=== PATIENT | male | born 1930 | race Caucasian/White ===

== ENCOUNTER → 2017-09-13 | Outpatient (CLI) | payer OTHER ==
[~2017-09-13] MED LIST: CSPOPS; GLC500 PO; INSDGIPEN SC; LATA0.009; LISI20TA3 PO; MCR5 PO; OXYC-57 PO; SIMV20TA2 PO
== END | disposition home or self-care (01) ==
LOC: C.PATHSPEC 17:14
PROVIDERS: ATTEND Urology
DX: C67.9 Malignant neoplasm of bladder, unspecified (principal)

== ENCOUNTER → 2018-02-06 | Outpatient (CLI) | payer OTHER | END | disposition home or self-care (01) | LOC: C.RDSM 09:05 | PROVIDERS: ATTEND Physical Medicine & Rehabilitation Sports Medicine | DX: M25.532 Pain in left wrist (principal) ==

== ENCOUNTER 2020-10-24 17:03 | Inpatient (IN) ==
--- NOTE | 2020-10-24 17:47 | Emergency Department Note ---
History of Present Illness General Chief complaint: Shortness of Breath/Dyspnea Stated complaint: sob, headache, back pain, no taste, nausea Time Seen by Provider: 10/24/20 17:31 Source: patient History of Present Illness Provider complaint: Body aches Onset (ago): week(s) Location: chest, back, upper extremity, lower extremity, left and right Severity: moderate Pain Consistency: + constant Quality: + aching Relieved By: + none Associated symptoms: + cough, + fever/chills, + headaches, + malaise and + shortness of breath; no chest pain and no nausea/vomiting This is an 89-year-old who presents with flulike symptoms and shortness of breath for the past week. The patient states that his brother was diagnosed with COVID-19 and he eats breakfast with him regularly. Patient developed shortness of breath with diffuse body aches about a week ago. He has had a cough as well with capellan sputum production. He denies any chest discomfort. He does have a headache and states he cannot taste anything and has lost his appetite. He has no abdominal pain, vomiting or diarrhea or urinary symptoms. He states he did not take his insulin today. He denies fever but states he has chills. Home Medications Medication Instructions Recorded Confirmed Type dorzolamide-timolol 1 drp OPB BID 08/27/18 10/24/20 History gabapentin 300 mg PO TID 08/27/18 10/24/20 History insulin glargine [Lantus U-100 40 sc SUBCUT QAM 08/27/18 10/24/20 History Insulin] latanoprost 1 drp OPB QPM 08/27/18 10/24/20 History lisinopril 20 mg PO DAILY 08/27/18 10/24/20 History metformin 1,000 mg PO BID 08/27/18 10/24/20 History cholecalciferol (vitamin D3) 25 1,000 units PO DAILY 09/08/19 10/24/20 History mcg (1,000 unit) tablet cyanocobalamin (vitamin B-12) 1,000 mcg PO DAILY 09/08/19 10/24/20 History 1,000 mcg tablet nystatin 100,000 unit/gram topical 1 applic TOP BID PRN gm 08/30/20 10/24/20 History powder insulin glargine [Lantus U-100 25 unit SUBCUT QPM 10/24/20 10/24/20 History Insulin] simvastatin 20 mg PO QAM 10/24/20 10/24/20 History Allergies Allergy/AdvReac Type Severity Reaction Status Date / Time omeprazole AdvReac Mild Unknown Verified 10/24/20 18:18 Past Med/Surg History Medical History Aneurysm artery, iliac Bladder cancer (~1980) Diabetes Diabetic neuropathy Dyslipidemia HTN (hypertension) Obesity (BMI 30-39.9) Osteoarthritis Vitamin B12 deficiency Surgical History History of bladder surgery History of cataract surgery History of cholecystectomy History of colonoscopy History of dental surgery History of knee surgery Family History Father Myocardial infarction Grandfather (Paternal) Diabetes Mother Hypertension Stroke Daughter Breast cancer Denies family history of Ovarian cancer Prostate cancer Lung cancer Social History Smoking Status: Former smoker Tobacco Type: Cigarettes Age Started Using Tobacco: 21; Age Quit Using Tobacco: 69; packs per day: 3; Years Smoked: 48; Second Hand Exposure: No; Hx Alcohol Use: No Hx Substance Use: No Preferred Language: Romansh Communication Ability: Effective Visual Impairment: Limited Hearing Ability: Normal Inside Upholsterer Required: No marital status: Single Current Living Situation: Alone current occupational status: retired Feels Safe at Home: Yes Childhood Exposure to Second-Hand Smoke: Yes caffeine: Yes Dental Care, Regularly: No Physical Activity Frequency: 3-4 Times per Week Physical Activity Frequency Comment: walk/cutting wood Seatbelt Use: always Sunscreen Use: Yes Do you think of yourself as: straight/heterosexual Review of Systems See HPI for pertinent positives & negatives. and A total of 10 systems reviewed and were otherwise negative Physical Exam Vital Signs Vital Signs - 24 hr 10/24/20 17:04 10/24/20 17:10 10/24/20 18:46 Temperature 36.5 C Temperature Source Temporal Artery Scan Pulse Rate 100 H Pulse Rate [Right Finger] Respiratory Rate 18 Respiratory Effort / Characteristics Spontaneous Blood Pressure 136/74 Blood Pressure [Right Arm] Blood Pressure Mean 94 Blood Pressure Mean [Right Arm] Pulse Oximetry 96 95 94 Oxygen Delivery Method Room Air Room Air Room Air Sepsis Recent Fever Within 48 Hours No Sepsis New/Unexplained Change in Mental Status N/A Sepsis Action Taken by Nursing No Action Required 10/24/20 19:08 10/24/20 19:15 Temperature Temperature Source Pulse Rate Pulse Rate [Right Finger] 86 88 Respiratory Rate 16 18 Respiratory Effort / Characteristics Blood Pressure Blood Pressure [Right Arm] 139/72 Blood Pressure Mean Blood Pressure Mean [Right Arm] 94 Pulse Oximetry 96 94 Oxygen Delivery Method Room Air Room Air Sepsis Recent Fever Within 48 Hours Sepsis New/Unexplained Change in Mental Status Sepsis Action Taken by Nursing Constitutional: Vital signs reviewed. Eyes: Pupils are equal round reactive to light. Conjunctiva are noninjected. ENT: Pharynx is clear without erythema or exudate. Mucous membranes are dry. Neck supple without meningeal signs. Respiratory: Clear to auscultation bilaterally. Breath sounds are equal bilaterally. Cardiovascular: Regular rate and rhythm. No rubs or gallops. GI: Soft, nondistended and nontender. Bowel sounds are present. Musculoskeletal: No peripheral edema. No lower extremity tenderness. Integumentary: No cyanosis. or jaundice. Neurological: The patient is awake and alert. No focal deficits. Psychiatric: Normal affect. Not anxious appearing. Course Administered Medications Discontinued Medications Acetaminophen (Acetaminophen 325 Mg Tab) 650 mg PO NOW STA Stop: 10/24/20 19:21 Last Admin: 10/24/20 19:31 Dose: 650 mg Documented by: [id number] Medical Decision Making Differential Diagnosis COVID-19, pneumonia, influenza, bronchitis, dehydration, metabolic derangement Medical Records Attestation: I reviewed the patient's medical records. I did perform a limited focused review of portions of the patient's old chart on the electronic medical record. The patient has had no recent pertinent visits to this hospital. Home Medications Current Medication List: was personally reviewed by me Laboratory Data Attestation: I reviewed the patient's lab results. Result diagrams: 10/24/20 18:28 10/24/20 18:28 Lab Results 10/24/20 10/24/20 10/24/20 Range/Units 18:28 18:28 18:28 WBC 4.44 L (4.8-10.8) K/uL RBC 5.24 (4.7-6.1) M/uL Hgb 15.9 (14.0-18.0) g/dL Hct 46.5 (42-52) % MCV 88.7 (80-100) fL MCH 30.3 (25-34) pg MCHC 34.2 (32-36) g/dL RDW Std Deviation 46.3 (36.4-46.3) fL RDW Coeff of Mya 14.1 (11.5-14.5) % Plt Count 144 (130-400) K/uL MPV 10.2 (7.4-10.4) fL Immature Gran % (Auto) 0.2 % Neut % (Auto) 50.9 % Lymph % (Auto) 35.4 % [place] % (Auto) 12.8 % Eos % (Auto) 0.5 % Baso % (Auto) 0.2 % Neut # (Auto) 2.26 (1.4-6.5) K/uL Lymph # (Auto) 1.57 (1.2-3.4) K/uL [place] # (Auto) 0.57 (0.11-0.59) K/uL Eos # (Auto) 0.02 (0-0.5) K/uL Baso # (Auto) 0.01 (0-0.2) K/uL Immature Gran # (Auto) 0.01 (0.00-0.02) K/uL PT 11.4 (9.0-12.0) Seconds INR 1.1 (0.9-1.1) APTT 31.6 H (21.0-31.0) Seconds PTT Ratio 1.1 Sodium 133 L (136-145) mmol/L Potassium 4.4 (3.5-5.1) mmol/L Chloride 99 (98-107) mmol/L Carbon Dioxide 28 (21-32) mmol/L Anion Gap 6.0 (3-11) BUN 19 H (7-18) mg/dl Creatinine 1.44 H (0.6-1.4) mg/dl Est Cr Clr Drug Dosing 42.4 ml/min Est GFR ( Amer) 49.9 Est GFR (Non-Af Amer) 43.0 BUN/Creatinine Ratio 13.0 (10-20) Glucose 204 H (70-99) mg/dl Calcium 8.5 (8.5-10.1) mg/dl Total Bilirubin 0.6 (0.2-1) mg/dl AST 36 (15-37) U/L ALT 33 (12-78) U/L Alkaline Phosphatase 54 (45-117) U/L Troponin I < 0.015 (0-0.045) ng/ml Total Protein 7.9 (6.4-8.2) gm/dl Albumin 3.5 (3.4-5.0) gm/dl Globulin 4.4 H (2.5-4.0) gm/dl Albumin/Globulin Ratio 0.8 L (0.9-2) COVID-19 Eval Order Influ A Molecular Assay (Negative) Influ B Molecular Assay (Negative) SARS-CoV-2, RNA, NAAT (NEGATIVE) 10/24/20 10/24/20 10/24/20 Range/Units 18:28 19:27 19:27 WBC (4.8-10.8) K/uL RBC (4.7-6.1) M/uL Hgb (14.0-18.0) g/dL Hct (42-52) % MCV (80-100) fL MCH (25-34) pg MCHC (32-36) g/dL RDW Std Deviation (36.4-46.3) fL RDW Coeff of Mya (11.5-14.5) % Plt Count (130-400) K/uL MPV (7.4-10.4) fL Immature Gran % (Auto) % Neut % (Auto) % Lymph % (Auto) % [place] % (Auto) % Eos % (Auto) % Baso % (Auto) % Neut # (Auto) (1.4-6.5) K/uL Lymph # (Auto) (1.2-3.4) K/uL [place] # (Auto) (0.11-0.59) K/uL Eos # (Auto) (0-0.5) K/uL Baso # (Auto) (0-0.2) K/uL Immature Gran # (Auto) (0.00-0.02) K/uL PT (9.0-12.0) Seconds INR (0.9-1.1) APTT (21.0-31.0) Seconds PTT Ratio Sodium (136-145) mmol/L Potassium (3.5-5.1) mmol/L Chloride (98-107) mmol/L Carbon Dioxide (21-32) mmol/L Anion Gap (3-11) BUN (7-18) mg/dl Creatinine (0.6-1.4) mg/dl Est Cr Clr Drug Dosing ml/min Est GFR ( Amer) Est GFR (Non-Af Amer) BUN/Creatinine Ratio (10-20) Glucose (70-99) mg/dl Calcium (8.5-10.1) mg/dl Total Bilirubin (0.2-1) mg/dl AST (15-37) U/L ALT (12-78) U/L Alkaline Phosphatase (45-117) U/L Troponin I (0-0.045) ng/ml Total Protein (6.4-8.2) gm/dl Albumin (3.4-5.0) gm/dl Globulin (2.5-4.0) gm/dl Albumin/Globulin Ratio (0.9-2) COVID-19 Eval Order Covid19 IDNow [facility] Influ A Molecular Assay Negative (Negative) Influ B Molecular Assay Negative (Negative) SARS-CoV-2, RNA, NAAT POSITIVE A* (NEGATIVE) Imaging Data Radiologist's Impression: XR chest 1V portable CLINICAL HISTORY: Dyspnea COMPARISON STUDY: 04/03/2012 FINDINGS: The heart is the upper limits of normal in size. There are increased markings at both lung bases, pneumonia versus atelectasis. Correlation with Covid 19 testing is recommended. There is a small left pleural effusion. There is no failure.[ IMPRESSION: 1. Subtle bibasilar opacities. Multifocal pneumonia versus atelectasis. Clinical and radiographic follow-up is recommended. 2. Small left pleural effusion ACT 112: Negative or not required by law. Electronically signed by: Merrick Fonseca M.D. 10/24/2020 6:46 PM Dictated: 10/24/201842 Transcribed: 10/24/201842 ECG Data Attestation: I personally reviewed and interpreted this ECG as follows: Indication: + SOB/dyspnea Rate (beats per minute): 84 Rhythm: + normal sinus ECG Intervals/blocks: + Normal QRS ECG ST segments: no ST elevation ECG Findings: no PVCs MDM Narrative I did evaluate the patient as noted above. The patient had a recent exposure to COVID-19. He is presenting with symptoms concerning for COVID-19 including loss of taste, cough, shortness of breath, myalgias and chills. IV access was established. I did place an order for continuous cardiac monitoring. The magali tor showed normal sinus rhythm at a rate of 98 bpm. I did order and personally review the patient's 12-lead EKG as described above. He has no acute ischemic changes. I did order and personally reviewed the images of the patient's chest x-ray as described above. Chest x-ray is concerning for bilateral pneumonia consistent with COVID-19. I did order and review the patient's blood work as noted in the electronic medical record. He has mild leukopenia. He is not anemic. Creatinine is slightly elevated at 1.4. He is hyperglycemic and has a sodium of 133. His COVID-19 test came back positive. I did discuss the test results with the patient.We did try to ambulate him in the emergency department. Walking a short distance in the room itself made him extremely dyspneic.He was also very weak.He does live by himself. He does have multiple comorbidities including diabetes, Hypertension, advanced age and obesity.He will be hospitalized for further care and evaluation. I did discuss case with the hospitalist and geriatric case manager. Impression & Plan Pneumonia due to 2019 novel coronavirus, Acute hyperglycemia Discharge Plan Visit Data Chief Complaint: Shortness of Breath/Dyspnea Stated Complaint: sob, headache, back pain, no taste, nausea ED Provider: Micah Duncan Discharge Problem: Pneumonia due to 2019 novel coronavirus, Acute hyperglycemia Patient Disposition: Being Evaluated by Hospitalist Forms Stand Alone Forms: My [facility] Prescriptions Prescriptions: No Action cyanocobalamin (vitamin B-12) 1,000 mcg tablet 1,000 mcg PO DAILY RF: 0 cholecalciferol (vitamin D3) 25 mcg (1,000 unit) tablet 1,000 units PO DAILY RF: 0 nystatin 100,000 unit/gram powder 1 applic TOP BID PRN (Reason: Skin Irritation) RF: 0 dorzolamide-timolol 22.3-6.8 mg/mL drops 1 drp OPB BID RF: 0 latanoprost 0.005 % drops 1 drp OPB QPM RF: 0 Lantus U-100 Insulin 100 unit/mL solution 40 sc subcut QAM RF: 0 lisinopril 20 mg tablet 20 mg PO DAILY RF: 0 metformin 1,000 mg tablet 1,000 mg PO BID RF: 0 gabapentin 300 mg Capsule 300 mg PO TID RF: 0 Lantus U-100 Insulin 100 unit/mL solution 25 unit SUBCUT QPM RF: 0 simvastatin 40 mg tablet 20 mg PO QAM RF: 0 Referrals Referrals: Jr Curry DO [Primary Care Provider] -
[2020-10-24 18:41] LABS: Basophils # (auto) 0.01 K/uL (0-0.2); Basophils % (auto) 0.2 %; Eosinophils # (auto) 0.02 K/uL (0-0.5); Eosinophils % (auto) 0.5 %; Hematocrit (blood only) 46.5 % (42-52); Hemoglobin 15.9 g/dL (14.0-18.0); Immature Granulocytes # (auto) 0.01 K/uL (0.00-0.02); Immature Granulocytes % (auto) 0.2 %; Lymphocytes # (auto) 1.57 K/uL (1.2-3.4); Lymphocytes % (auto) 35.4 %; Mean Corpuscular Hemoglobin 30.3 pg (25-34); Mean Corpuscular Hgb Conc 34.2 g/dL (32-36); Mean Corpuscular Volume 88.7 fL (80-100); Mean Platelet Volume 10.2 fL (7.4-10.4); Monocytes # (auto) 0.57 K/uL (0.11-0.59); Monocytes % (auto) 12.8 %; Neutrophils # (auto) 2.26 K/uL (1.4-6.5); Neutrophils % (auto) 50.9 %; Platelet Count 144 K/uL (130-400); RDW Coefficient of Variation 14.1 % (11.5-14.5); RDW Standard Deviation 46.3 fL (36.4-46.3); Red Blood Count 5.24 M/uL (4.7-6.1); White Blood Count 4.44 K/uL (4.8-10.8)
--- NOTE | 2020-10-24 18:47 | XRay Report ---
XR chest 1V portable CLINICAL HISTORY: Dyspnea COMPARISON STUDY: 04/03/2012 FINDINGS: The heart is the upper limits of normal in size. There are increased markings at both lung bases, pneumonia versus atelectasis. Correlation with Covid 19 testing is recommended. There is a sma ll left pleural effusion. There is no failure.[ IMPRESSION: 1. Subtle bibasilar opacities. Multifocal pneumonia versus atelectasis. Clinical and radiographic fol low-up is recommended. 2. Small left pleural effusion ACT 112: Negative or not required by law. Electronically signed by: Merrick Fonseca M.D. 10/24/2020 6:46 PM
[2020-10-24 18:52] LABS: INR 1.1 (0.9-1.1); Partial Thromboplastin Ratio 1.1; Partial Thromboplastin Time 31.6 Seconds (21.0-31.0); Prothrombin Time 11.4 Seconds (9.0-12.0)
[2020-10-24 19:03] LABS: Alanine Aminotransferase 33 U/L (12-78); Albumin Level 3.5 gm/dl (3.4-5.0); Aspartate Aminotransferase 36 U/L (15-37); Blood Urea Nitrogen 19 mg/dl (7-18); Calcium 8.5 mg/dl (8.5-10.1); Carbon Dioxide 28 mmol/L (21-32); Chloride 99 mmol/L (98-107); Creatinine Clr Calc Pharmacy 42.4 ml/min; Est GFR (African American) 49.9; Glucose 204 mg/dl (70-99); Potassium 4.4 mmol/L (3.5-5.1); Sodium 133 mmol/L (136-145)
[2020-10-24 19:08] LABS: Albumin Globulin Ratio 0.8 (0.9-2); Alkaline Phosphatase 54 U/L (45-117); Bilirubin,Total 0.6 mg/dl (0.2-1); Globulin 4.4 gm/dl (2.5-4.0); Total Protein 7.9 gm/dl (6.4-8.2); Troponin I < 0.015 ng/ml (0-0.045)
[2020-10-24] MEDS ORDERED: ACETAMINOPHEN 325 MG TAB PO STA (19:20)
[2020-10-24 19:31] LABS: Influenza A virus by PCR Negative (Negative); Influenza B virus by PCR Negative (Negative)
--- NOTE | 2020-10-24 20:55 | History & Physical Report ---
Date of Service October 24, 2020 Assessment & Plan (1) Pneumonia due to 2019 novel coronavirus: Pneumonia due to COVID-19 virus/hypoxia/acute viral syndrome- Patient has hypoxia and the generalized myalgias and arthralgias that go along with a viral syndrome. Dexamethasone 6 mg IV every morning Remdesivir IV per protocol Zinc sulfate 200 mg p.o. every morning Acetaminophen 650 mg p.o. every 6 hours as needed pain or temperature Nasal cannula oxygen, titrate to keep pulse ox 94 to 95% Ventolin HFA 2 puffs 4 times daily, and every 2 hours as needed Present on Admission?: Yes (2) Hypoxia: See above Present on Admission?: Yes (3) Acute viral syndrome: The generalized myalgias and arthralgias that go along with a viral syndrome, are as bothersome to the patient just his breathing Present on Admission?: Yes (4) Diabetes: Continue current dosing of Lantus insulin at 40 units subcu every morning and 25 units subcu every afternoon. Place on Accu-Cheks before meals and at bedtime with NovoLog coverage per scale. Be prepared to adjust dosing due to possible worsening while on dexamethasone Hold metformin Present on Admission?: Yes (5) Diabetic neuropathy: Continue gabapentin Present on Admission?: Yes (6) Dyslipidemia: Continue simvastatin. Present on Admission?: Yes (7) HTN (hypertension): Hold lisinopril Present on Admission?: Yes (8) Acute kidney injury: Creatinine 1.44 upon admission, with baseline 1.2. Place on NSS at 100 mils per hour x1 L Repeat laboratories in a.m. Present on Admission?: Yes History of Present Illness Chief Complaint: The patient presents to the emergency department with generalized myalgias and arthralgias involving upper and lower extremities, and chest and back. He also reports a cough, headaches, shortness of breath and dyspnea on exertion with minimal activity, and decreased taste affecting his ability to eat. He was exposed to his brother who had COVID-19 infection Primary Care Provider: Jr Curry DO The patient is an 89-year-old male with a past medical history including diabetes mellitus, diabetic peripheral neuropathy, hypertension, dyslipidemia, obesity, glaucoma, vitamin B12 deficiency and osteoarthritis. He presents with the symptoms as noted above, after exposure to his 84-year-old brother who was diagnosed with COVID-19. Work-up in the emergency department included a positive COVID-19 test, a chest x-ray showing multifocal pneumonia, creatinine 1.44, glucose 204 and vital signs included pulse ox of 92% on room air. Allergies Allergy/AdvReac Type Severity Reaction Status Date / Time omeprazole AdvReac Mild Unknown Verified 10/24/20 18:18 Home Medications Medication Instructions Recorded Confirmed Type dorzolamide-timolol 1 drp OPB BID 08/27/18 10/24/20 History gabapentin 300 mg PO TID 08/27/18 10/24/20 History insulin glargine [Lantus U-100 40 sc SUBCUT QAM 08/27/18 10/24/20 History Insulin] latanoprost 1 drp OPB QPM 08/27/18 10/24/20 History lisinopril 20 mg PO DAILY 08/27/18 10/24/20 History metformin 1,000 mg PO BID 08/27/18 10/24/20 History cholecalciferol (vitamin D3) 25 1,000 units PO DAILY 09/08/19 10/24/20 History mcg (1,000 unit) tablet cyanocobalamin (vitamin B-12) 1,000 mcg PO DAILY 09/08/19 10/24/20 History 1,000 mcg tablet nystatin 100,000 unit/gram topical 1 applic TOP BID PRN gm 08/30/20 10/24/20 History powder insulin glargine [Lantus U-100 25 unit SUBCUT QPM 10/24/20 10/24/20 History Insulin] simvastatin 20 mg PO QAM 10/24/20 10/24/20 History Past Med/Surg History Medical History Aneurysm artery, iliac Bladder cancer (~1980) Diabetes Diabetic neuropathy Dyslipidemia HTN (hypertension) Obesity (BMI 30-39.9) Osteoarthritis Vitamin B12 deficiency Surgical History History of bladder surgery History of cataract surgery History of cholecystectomy History of colonoscopy History of dental surgery History of knee surgery Family History Father Myocardial infarction Grandfather (Paternal) Diabetes Mother Hypertension Stroke Daughter Breast cancer Denies family history of Ovarian cancer Prostate cancer Lung cancer Social History Smoking Status: Former smoker Tobacco Type: Cigarettes Age Started Using Tobacco: 21; Age Quit Using Tobacco: 69; packs per day: 3; Years Smoked: 46; Second Hand Exposure: No; Hx Alcohol Use: No Hx Substance Use: No Preferred Language: Portuguese Communication Ability: Effective Visual Impairment: Limited Hearing Ability: Normal Ladle Cleaner Required: No marital status: Single Current Living Situation: Alone current occupational status: retired Feels Safe at Home: Yes Childhood Exposure to Second-Hand Smoke: Yes caffeine: Yes Dental Care, Regularly: No Physical Activity Frequency: 3-4 Times per Week Physical Activity Frequency Comment: walk/cutting wood Seatbelt Use: always Sunscreen Use: Yes Do you think of yourself as: straight/heterosexual Review of Systems Review of Systems: The patient denies palpitations, lower extremity swelling, sore throat, fevers, chills, sweats, nausea, vomiting, diarrhea , constipation, abdominal pain, pelvic pain, blood in urine or stool, dysuria, urinary frequency or urgency, memory loss, loss of consciousness, rash, abnormal bruising or bleeding, imbalance, focal weakness, numbness or tingling in arms or legs, neck pain, or night sweats. The review of systems is otherwise negative other than for that already noted above, and at least 10 systems have been reviewed. Physical Exam Physical Exam: The patient is awake, alert and oriented 3, well developed and well nourished, normocephalic and atraumatic, lying in bed and in no acute distress. HEENT--PERRL, EOMI, mucous membranes and oropharynx dry. Neck--supple. No JVD. No bruits. Thyroid normal, trachea midline, no adenopathy. Heart--normal S1 and S2. No murmurs, rubs or gallops. Lungs--coarse breath sounds bilaterally. No respiratory distress, no accessory muscle use. Abdomen--normal bowel sounds and soft. Nontender. Nondistended. Obese. Extremities--no cyanosis or clubbing. No edema. Dermatologic--normal skin turgor, normal color, no abnormal lymph nodes, no rash. Neurologic--cranial nerves II through XII grossly intact. Rheumatologic--normal range of motion. Psychiatric--normal affect. Results & Data Results & Data ([facility]) Vital Signs (Past 12 Hours) Vital Signs Temp Pulse Pulse Resp BP BP Pulse Ox 10/24/20 19:15 88 18 94 10/24/20 19:08 86 16 139/72 96 10/24/20 18:46 94 10/24/20 17:10 97.7 F 100 H 18 136/74 95 10/24/20 17:04 96 Laboratory Results Laboratory Results WBC 4.44 K/uL (4.8-10.8) L 10/24/20 18:28 RBC 5.24 M/uL (4.7-6.1) 10/24/20 18:28 Hgb 15.9 g/dL (14.0-18.0) 10/24/20 18: Hct 46.5 % (42-52) 10/24/20 18: MCV 88.7 fL (80-100) 10/24/20 18: MCH 30.3 pg (25-34) 10/24/20 18: MCHC 34.2 g/dL (32-36) 10/24/20 18:28 RDW Std Deviation 46.3 fL (36.4-46.3) 10/24/20 18: RDW Coeff of Mya 14.1 % (11.5-14.5) 10/24/20 18: Plt Count 144 K/uL (130-400) 10/24/20 18:28 MPV 10.2 fL (7.4-10.4) 10/24/20 18: Immature Gran % (Auto) 0.2 % 10/24/20 18: Neut % (Auto) 50.9 % 10/24/20 18:28 Lymph % (Auto) 35.4 % 10/24/20 18:28 [place] % (Auto) 12.8 % 10/24/20 18:28 Eos % (Auto) 0.5 % 10/24/20 18: Baso % (Auto) 0.2 % 10/24/20 18:28 Neut # (Auto) 2.26 K/uL (1.4-6.5) 10/24/20 18:28 Lymph # (Auto) 1.57 K/uL (1.2-3.4) 10/24/20 18:28 [place] # (Auto) 0.57 K/uL (0.11-0.59) 10/24/20 18:28 Eos # (Auto) 0.02 K/uL (0-0.5) 10/24/20 18:28 Baso # (Auto) 0.01 K/uL (0-0.2) 10/24/20 18:28 Immature Gran # (Auto) 0.01 K/uL (0.00-0.02) 10/24/20 18:28 PT 11.4 Seconds (9.0-12.0) 10/24/20 18: INR 1.1 (0.9-1.1) 10/24/20 18: APTT 31.6 Seconds (21.0-31.0) H 10/24/20 18: PTT Ratio 1.1 10/24/20 18:28 Sodium 133 mmol/L (136-145) L 10/24/20 18: Potassium 4.4 mmol/L (3.5-5.1) 10/24/20 18: Chloride 99 mmol/L (98-107) 10/24/20 18: Carbon Dioxide 28 mmol/L (21-32) 10/24/20 18:28 Anion Gap 6.0 (3-11) 10/24/20 18:28 BUN 19 mg/dl (7-18) H 10/24/20 18: Creatinine 1.44 mg/dl (0.6-1.4) H 10/24/20 18:28 Est Cr Clr Drug Dosing 42.4 ml/min 10/24/20 18:28 Est GFR ( Amer) 49.9 10/24/20 18:28 Est GFR (Non-Af Amer) 43.0 10/24/20 18:28 BUN/Creatinine Ratio 13.0 (10-20) 10/24/20 18:28 Glucose 204 mg/dl (70-99) H 10/24/20 18:28 POC Glucose 251 mg/dl (70-99) H 10/25/20 02:36 Calcium 8.5 mg/dl (8.5-10.1) 10/24/20 18:28 Total Bilirubin 0.6 mg/dl (0.2-1) 10/24/20 18:28 AST 36 U/L (15-37) 10/24/20 18:28 ALT 33 U/L (12-78) 10/24/20 18:28 Alkaline Phosphatase 54 U/L (45-117) 10/24/20 18:28 Troponin I < 0.015 ng/ml (0-0.045) 10/24/20 18:28 Total Protein 7.9 gm/dl (6.4-8.2) 10/24/20 18:28 Albumin 3.5 gm/dl (3.4-5.0) 10/24/20 18:28 Globulin 4.4 gm/dl (2.5-4.0) H 10/24/20 18:28 Albumin/Globulin Ratio 0.8 (0.9-2) L 10/24/20 18:28 COVID-19 Eval Order Covid19 IDNow [facility] 10/24/20 19:27 Influ A Molecular Assay Negative (Negative) 10/24/20 18:28 Influ B Molecular Assay Negative (Negative) 10/24/20 18:28 SARS-CoV-2, RNA, NAAT POSITIVE (NEGATIVE) A* 10/24/20 19:27 Diagnostic Findings [facility], [id number] XRay Report Patient: BRYSON MCHUGH EAdmit Date: 10/24/20MR#: [id number][facility] [address] [address] [address] [facility]:[id number]: Date: [address] [place] [address] Zip: [place], [place] [address]Yiz: 89Location: EDSex: MRoom/Bed:Att Phy:Diagnosis: sob, headache, back pain, no taste, nauseaPri Phy: Jr Curry, DOService Date: 10/24/20Fa Phy:Interpreting Phy: Merrick Fonseca [facility] Phy: Ordering Phy: Micah Duncan MD cc: ~ XR chest 1V portable CLINICAL HISTORY: Dyspnea COMPARISON STUDY: 04/03/2012 FINDINGS: The heart is the upper limits of normal in size. There are increased markings at both lung bases, pneumonia versus atelectasis. Correlation with Covid 19 testing is recommended. There is a small left pleural effusion. There is no failure.[ IMPRESSION: 1. Subtle bibasilar opacities. Multifocal pneumonia versus atelectasis. Clinical and radiographic follow-up is recommended. 2. Small left pleural effusion ACT 112: Negative or not required by law. Electronically signed by: Merrick Fonseca M.D. 10/24/2020 6:46 PM Dictated: 10/24/201842Transcribed: 10/24/201842 Code Status & VTE Plan Code Status Full code VTE Prophylaxis Plan VTE Prophylaxis will be ordered: Yes PG Care Time/CCT Total # of Minutes Spent Total Time Spent with Patient: Total time spent is greater than 50% in coordination of care (as documented) at patient's floor/unit and/or counseling patient: Coding Level of Care Code 94504 Initial Inpt Care Lvl 3 Diagnoses Pneumonia due to 2019 novel coronavirus U07.1; J12.89 Hypoxia R09.02 Acute viral syndrome B34.9 Diabetes E11.9 Diabetic neuropathy E11.40 Dyslipidemia E78.5 HTN (hypertension) I10 Acute kidney injury N17.9
[2020-10-25] MEDS ORDERED: GLUCOSE 40% GEL 15 GM TUBE PO PRN (00:57)
[2020-10-25] MEDS ORDERED: ONDANSETRON INJ 2 MG/ML 2 ML VIAL IV PRN (00:57)
[2020-10-25] MEDS ORDERED: ACETAMINOPHEN 325 MG TAB PO PRN (00:57)
[2020-10-25] MEDS ORDERED: SODIUM CHLORIDE 0.9% 1000ML 1,000 ML IV SCH (00:57)
[2020-10-25] MEDS ORDERED: GLUCAGON FOR INJ 1 MG VIAL SQ PRN (00:57)
[2020-10-25] MEDS ORDERED: NYSTATIN POWDER 15GM BTL EXT PRN (00:57)
[2020-10-25] MEDS ORDERED: GLUCOSE 10 TABS/TUBE PO PRN (00:57)
[2020-10-25] MEDS ORDERED: CARBOHYDRATES FOR HYPOGLYCEMIA PO PRN (00:57)
[2020-10-25] MEDS ORDERED: DEXTROSE 50% 50 ML SYRINGE IV PRN (00:57)
[2020-10-25] MEDS ORDERED: DEXAMETHASONE SOD INJ 10 MG/ML VIAL IV STA (01:29)
[2020-10-25] MEDS ORDERED: INSULIN GLARGINE SOLOSTAR 100 UNITS/ML 3 ML PEN SQ SCH ×3 (01:30→21:00)
[2020-10-25] MEDS: ALBUTEROL HFA 8 GM INHALER INH SCH ×4 (01:38→15:06)
[2020-10-25] MEDS ORDERED: REMDESIVIR 200 MG in SODIUM CHLORIDE 0.9% 210 ML IV ONE (02:00)
[2020-10-25] MEDS: DORZOLAMIDE/TIMOLOL 22.3/6.8MG/ML 10 ML BTL OPB SCH ×3 (02:44→20:41)
[2020-10-25] MEDS: GABAPENTIN 300 MG CAP PO SCH ×4 (02:45→20:42)
[2020-10-25] MEDS: LATANOPROST 0.005% OP SOLN 2.5 ML BTL OPB SCH ×2 (02:45→20:41)
[2020-10-25] MEDS: INSULIN ASPART 100 UNITS/ML 3 ML PEN SC SCH ×5 (02:50→22:49)
[2020-10-25 05:52] LABS: Basophils # (auto) 0.01 K/uL (0-0.2); Basophils % (auto) 0.4 %; Hematocrit (blood only) 43.2 % (42-52); Hemoglobin 14.6 g/dL (14.0-18.0); Immature Granulocytes # (auto) 0.01 K/uL (0.00-0.02); Immature Granulocytes % (auto) 0.4 %; Lymphocytes # (auto) 0.74 K/uL (1.2-3.4); Lymphocytes % (auto) 26.1 %; Mean Corpuscular Hemoglobin 29.9 pg (25-34); Mean Corpuscular Hgb Conc 33.8 g/dL (32-36); Mean Corpuscular Volume 88.3 fL (80-100); Mean Platelet Volume 10.4 fL (7.4-10.4); Monocytes # (auto) 0.23 K/uL (0.11-0.59); Monocytes % (auto) 8.1 %; Neutrophils # (auto) 1.84 K/uL (1.4-6.5); Platelet Count 119 K/uL (130-400); RDW Coefficient of Variation 13.9 % (11.5-14.5); RDW Standard Deviation 45.1 fL (36.4-46.3); Red Blood Count 4.89 M/uL (4.7-6.1); White Blood Count 2.83 K/uL (4.8-10.8)
[2020-10-25 06:08] LABS: BUN Creatinine Ratio 15.6 (10-20); Calcium 8.3 mg/dl (8.5-10.1); Creatinine Clr Calc Pharmacy 50.5 ml/min; Est GFR (African American) 61.6; Est GFR (Non-African American) 53.1; Magnesium 1.8 mg/dl (1.8-2.4); Potassium 4.5 mmol/L (3.5-5.1)
[2020-10-25 06:11] LABS: Albumin Globulin Ratio 0.8 (0.9-2); Bilirubin,Total 0.4 mg/dl (0.2-1)
[2020-10-25 06:37] LABS: Estimated Average Glucose 186 mg/dl; Hemoglobin A1C 8.1 % (4.5-5.6)
[2020-10-25 06:41] LABS: Giant Platelets 1+
[2020-10-25] MEDS: ENOXAPARIN INJ 40 MG/0.4 ML SYR SQ SCH (08:21)
[2020-10-25] MEDS: ZINC SULFATE 220 MG CAPSULE PO SCH (08:21)
[2020-10-25] MEDS: SIMVASTATIN 20 MG TAB PO SCH (08:21)
[2020-10-25] MEDS: CHOLECALCIFEROL 1,000 UNITS 25 MCG TAB PO SCH (08:22)
[2020-10-25] MEDS: CYANOCOBALAMIN 500 MCG TABLET (VITAMIN B-12) PO SCH (08:22)
[2020-10-25] MEDS ORDERED: ALBUTEROL HFA 8 GM INHALER INH PRN (17:56)
--- NOTE | 2020-10-25 18:26 | Electrocardiogram Report ---
Test Reason : Blood Pressure : / mmHG Vent. Rate : 084 BPM Atrial Rate : 084 BPM P-R Int : 202 ms QRS Dur : 086 ms QT Int : 358 ms P-R-T Axes : 032 -08 048 degrees QTc Int : 423 ms Normal sinus rhythm Normal ECG When compared with ECG of 03-APR-2012 09:41, No significant change was found Confirmed by Harmeet Anguiano ([id number]) on 10/25/2020 6:26:06 PM Referred By: REFERRED SELF Confirmed By:Demetrio Anguiano
[2020-10-25] MEDS ORDERED: REMDESIVIR 100 MG in SODIUM CHLORIDE 0.9% 230 ML IV SCH (20:00)
[2020-10-25] MEDS ORDERED: SODIUM CHLORIDE 0.9% 10ML FLUSH IV SCH (20:00)
[2020-10-25] MEDS ORDERED: DIPHTHERIA/TETANUS/PERTUSSIS 0.5 ML SYR/VIAL IM ONE (20:21)
--- NOTE | 2020-10-25 20:33 | Hospitalist Progress Note ---
Date of Service October 25, 2020 Assessment & Plan (1) Pneumonia due to 2019 novel coronavirus: Pneumonia due to COVID-19 virus/hypoxia/acute viral syndrome- Chest x-ray with bilateral basilar opacities and small left pleural effusion He remains afebrile Patient has hypoxia and the generalized myalgias and arthralgias that go along with a viral syndrome. Also had diarrhea which is now improving. Overall much improved today after receiving IV fluids, steroids. He is tolerating p.o. Pulse ox is now 94-95% on room air at rest Continue dexamethasone 6 mg IV every morning and convert to p.o. on discharge for 10-day course total Continue remdesivir IV per protocol but can discontinue upon discharge Continue zinc sulfate Acetaminophen 650 mg p.o. every 6 hours as needed pain or temperature Change albuterol to as needed Supplemental O2 as needed keep pulse ox greater than 92% (2) Hypoxia: See above, now resolved May need a two-step prior to discharge (3) Diabetes: Hemoglobin A1c 8.1% With hyperglycemia here worsened by missing his usual doses of insulin prior to admission as well as corticosteroids Increase Lantus to 45 units in the morning and 30 units at night, tighten down NovoLog sliding scale Hold metformin from home (4) Diabetic neuropathy: Continue gabapentin (5) Dyslipidemia: Continue simvastatin. (6) HTN (hypertension): Blood pressures are normal -Continue to hold lisinopril for now (7) Acute kidney injury: Creatinine 1.44 upon admission, with baseline 1.2. Place on NSS at 100 mils per hour x1 L and now creatinine is down to 1.2 which is baseline -Avoid nephrotoxins -renally dose meds when appropriate -follow BMP (8) DVT prophylaxis: Lovenox SQ Disposition-continued stay but can downgrade from telemetry status to the medical/surgical. Likely to discharge home tomorrow Will need to step prior to discharge most likely Admission and Anticipated Discharge Date Admission Date: October 24, 2020 Subjective Patient feeling much better. He ate well today. No nausea. His diarrhea he thinks is slowing down. Cough is improved and less short of breath. Pulse ox is 95% on room air at rest. Denies chest pain. He was out of bed to the bathroom and did not feel lightheaded. He feels stronger. Review of Systems Review of Systems: All systems reviewed & are unremarkable except as noted in HPI & below Physical Exam Constitutional: WD/WN, vitals as above Eyes: + anicteric sclerae Neck: trachea midline, no thyromegaly Respiratory: normal respiratory effort Auscultation: + crackles (At the bases) Cardiovascular: RRR, no murmur, no edema Chest (Breasts): Chest: normal inspection of chest Gastrointestinal (Abdomen): normal bowel sounds, soft, nontender, no hepatosplenomegaly Musculoskeletal: Extremities: extremities normal to inspection; no cyanosis and no clubbing Skin: no rashes, warm and dry Neurologic: moves all extremities and awake; no focal motor deficits Psychiatric: A+Ox3, euthymic affect Lymphatic: no lymphedema Results & Data Results & Data ([facility]) Vital Signs (Past 12 Hours) Vital Signs Temp Pulse Resp BP Pulse Ox 10/25/20 16:30 36.8 C 90 18 128/64 10/25/20 15:06 84 18 95 10/25/20 11:31 85 18 94 Laboratory Results 10/25/20 10/25/20 10/25/20 Range/Units 16:35 11:47 08:50 WBC (4.8-10.8) K/uL RBC (4.7-6.1) M/uL Hgb (14.0-18.0) g/dL Hct (42-52) % MCV (80-100) fL MCH (25-34) pg MCHC (32-36) g/dL RDW Std Deviation (36.4-46.3) fL RDW Coeff of Mya (11.5-14.5) % Plt Count (130-400) K/uL MPV (7.4-10.4) fL Immature Gran % (Auto) % Neut % (Auto) % Lymph % (Auto) % [place] % (Auto) % Eos % (Auto) % Baso % (Auto) % Neut # (Auto) (1.4-6.5) K/uL Lymph # (Auto) (1.2-3.4) K/uL [place] # (Auto) (0.11-0.59) K/uL Eos # (Auto) (0-0.5) K/uL Baso # (Auto) (0-0.2) K/uL Immature Gran # (Auto) (0.00-0.02) K/uL Giant Platelets Sodium (136-145) mmol/L Potassium (3.5-5.1) mmol/L Chloride (98-107) mmol/L Carbon Dioxide (21-32) mmol/L Anion Gap (3-11) BUN (7-18) mg/dl Creatinine (0.6-1.4) mg/dl Est Cr Clr Drug Dosing ml/min Est GFR ( Amer) Est GFR (Non-Af Amer) BUN/Creatinine Ratio (10-20) Glucose (70-99) mg/dl POC Glucose 275 H 275 H 255 H (70-99) mg/dl Estimat Average Glucose mg/dl Hemoglobin A1c (4.5-5.6) % Calcium (8.5-10.1) mg/dl Magnesium (1.8-2.4) mg/dl Total Bilirubin (0.2-1) mg/dl AST (15-37) U/L ALT (12-78) U/L Alkaline Phosphatase (45-117) U/L Total Protein (6.4-8.2) gm/dl Albumin (3.4-5.0) gm/dl Globulin (2.5-4.0) gm/dl Albumin/Globulin Ratio (0.9-2) 10/25/20 10/25/20 10/25/20 Range/Units 05:32 05:32 05:32 WBC 2.83 L (4.8-10.8) K/uL RBC 4.89 (4.7-6.1) M/uL Hgb 14.6 (14.0-18.0) g/dL Hct 43.2 (42-52) % MCV 88.3 (80-100) fL MCH 29.9 (25-34) pg MCHC 33.8 (32-36) g/dL RDW Std Deviation 45.1 (36.4-46.3) fL RDW Coeff of Mya 13.9 (11.5-14.5) % Plt Count 119 L (130-400) K/uL MPV 10.4 (7.4-10.4) fL Immature Gran % (Auto) 0.4 % Neut % (Auto) 65.0 % Lymph % (Auto) 26.1 % [place] % (Auto) 8.1 % Eos % (Auto) 0.0 % Baso % (Auto) 0.4 % Neut # (Auto) 1.84 (1.4-6.5) K/uL Lymph # (Auto) 0.74 L (1.2-3.4) K/uL [place] # (Auto) 0.23 (0.11-0.59) K/uL Eos # (Auto) 0.00 (0-0.5) K/uL Baso # (Auto) 0.01 (0-0.2) K/uL Immature Gran # (Auto) 0.01 (0.00-0.02) K/uL Giant Platelets 1+ Sodium 134 L (136-145) mmol/L Potassium 4.5 (3.5-5.1) mmol/L Chloride 104 (98-107) mmol/L Carbon Dioxide 26 (21-32) mmol/L Anion Gap 4.0 (3-11) BUN 19 H (7-18) mg/dl Creatinine 1.21 (0.6-1.4) mg/dl Est Cr Clr Drug Dosing 50.5 ml/min Est GFR ( Amer) 61.6 Est GFR (Non-Af Amer) 53.1 BUN/Creatinine Ratio 15.6 (10-20) Glucose 219 H (70-99) mg/dl POC Glucose (70-99) mg/dl Estimat Average Glucose 186 mg/dl Hemoglobin A1c 8.1 H (4.5-5.6) % Calcium 8.3 L (8.5-10.1) mg/dl Magnesium 1.8 (1.8-2.4) mg/dl Total Bilirubin 0.4 (0.2-1) mg/dl AST 31 (15-37) U/L ALT 28 (12-78) U/L Alkaline Phosphatase 45 (45-117) U/L Total Protein 7.0 (6.4-8.2) gm/dl Albumin 3.0 L (3.4-5.0) gm/dl Globulin 4.0 (2.5-4.0) gm/dl Albumin/Globulin Ratio 0.8 L (0.9-2) 10/25/ Range/Units 02:36 WBC (4.8-10.8) K/uL RBC (4.7-6.1) M/uL Hgb (14.0-18.0) g/dL Hct (42-52) % MCV (80-100) fL MCH (25-34) pg MCHC (32-36) g/dL RDW Std Deviation (36.4-46.3) fL RDW Coeff of Mya (11.5-14.5) % Plt Count (130-400) K/uL MPV (7.4-10.4) fL Immature Gran % (Auto) % Neut % (Auto) % Lymph % (Auto) % [place] % (Auto) % Eos % (Auto) % Baso % (Auto) % Neut # (Auto) (1.4-6.5) K/uL Lymph # (Auto) (1.2-3.4) K/uL [place] # (Auto) (0.11-0.59) K/uL Eos # (Auto) (0-0.5) K/uL Baso # (Auto) (0-0.2) K/uL Immature Gran # (Auto) (0.00-0.02) K/uL Giant Platelets Sodium (136-145) mmol/L Potassium (3.5-5.1) mmol/L Chloride (98-107) mmol/L Carbon Dioxide (21-32) mmol/L Anion Gap (3-11) BUN (7-18) mg/dl Creatinine (0.6-1.4) mg/dl Est Cr Clr Drug Dosing ml/min Est GFR ( Amer) Est GFR (Non-Af Amer) BUN/Creatinine Ratio (10-20) Glucose (70-99) mg/dl POC Glucose 251 H (70-99) mg/dl Estimat Average Glucose mg/dl Hemoglobin A1c (4.5-5.6) % Calcium (8.5-10.1) mg/dl Magnesium (1.8-2.4) mg/dl Total Bilirubin (0.2-1) mg/dl AST (15-37) U/L ALT (12-78) U/L Alkaline Phosphatase (45-117) U/L Total Protein (6.4-8.2) gm/dl Albumin (3.4-5.0) gm/dl Globulin (2.5-4.0) gm/dl Albumin/Globulin Ratio (0.9-2) PG Care Time/CCT Total # of Minutes Spent Total Time Spent with Patient: Total time spent is greater than 50% in coordination of care (as documented) at patient's floor/unit and/or counseling patient: Coding Level of Care Code 08052 Subseq Hosp Care Lvl 3 Diagnoses Pneumonia due to 2019 novel coronavirus U07.1; J12.89 Hypoxia R09.02 Diabetes E11.9 Diabetic neuropathy E11.40 Dyslipidemia E78.5 HTN (hypertension) I10 Acute kidney injury N17.9 DVT prophylaxis Z29.9
[2020-10-26 07:03] LABS: Basophils # (auto) 0.01 K/uL (0-0.2); Basophils % (auto) 0.2 %; Hemoglobin 14.7 g/dL (14.0-18.0); Immature Granulocytes # (auto) 0.01 K/uL (0.00-0.02); Immature Granulocytes % (auto) 0.2 %; Lymphocytes # (auto) 1.72 K/uL (1.2-3.4); Lymphocytes % (auto) 32.4 %; Mean Corpuscular Hemoglobin 29.6 pg (25-34); Mean Corpuscular Hgb Conc 33.4 g/dL (32-36); Mean Corpuscular Volume 88.5 fL (80-100); Mean Platelet Volume 10.8 fL (7.4-10.4); Monocytes # (auto) 0.61 K/uL (0.11-0.59); Monocytes % (auto) 11.5 %; Neutrophils # (auto) 2.96 K/uL (1.4-6.5); Neutrophils % (auto) 55.7 %; Platelet Count 142 K/uL (130-400); RDW Coefficient of Variation 14.1 % (11.5-14.5); RDW Standard Deviation 45.4 fL (36.4-46.3); Red Blood Count 4.97 M/uL (4.7-6.1); White Blood Count 5.31 K/uL (4.8-10.8)
[2020-10-26 07:33] LABS: Albumin Level 2.8 gm/dl (3.4-5.0); BUN Creatinine Ratio 22.1 (10-20); Calcium 8.5 mg/dl (8.5-10.1); Creatinine Clr Calc Pharmacy 53.5 ml/min; Est GFR (African American) 66.9; Est GFR (Non-African American) 57.7; Magnesium 1.9 mg/dl (1.8-2.4); Potassium 4.2 mmol/L (3.5-5.1)
[2020-10-26 07:39] LABS: Albumin Globulin Ratio 0.7 (0.9-2); Bilirubin,Total 0.5 mg/dl (0.2-1); Total Protein 6.8 gm/dl (6.4-8.2)
[2020-10-26] MEDS: DORZOLAMIDE/TIMOLOL 22.3/6.8MG/ML 10 ML BTL OPB SCH (07:47)
[2020-10-26] MEDS: ENOXAPARIN INJ 40 MG/0.4 ML SYR SQ SCH (07:47)
[2020-10-26] MEDS: GABAPENTIN 300 MG CAP PO SCH ×2 (07:48→14:15)
[2020-10-26] MEDS: SIMVASTATIN 20 MG TAB PO SCH (07:49)
[2020-10-26] MEDS: CHOLECALCIFEROL 1,000 UNITS 25 MCG TAB PO SCH (07:49)
[2020-10-26] MEDS: CYANOCOBALAMIN 500 MCG TABLET (VITAMIN B-12) PO SCH (07:49)
[2020-10-26] MEDS: ZINC SULFATE 220 MG CAPSULE PO SCH (07:50)
[2020-10-26] MEDS: INSULIN ASPART 100 UNITS/ML 3 ML PEN SC SCH ×2 (08:00→12:00)
[2020-10-26] MEDS ORDERED: INSULIN GLARGINE SOLOSTAR 100 UNITS/ML 3 ML PEN SQ SCH (09:00)
[2020-10-26] MEDS ORDERED: DEXAMETHASONE SOD PHOSPHATE 6 MG in SYRINGE 0 ML IV SCH (09:00)
--- NOTE | 2020-10-26 11:59 | Discharge Summary ---
Date of Service October 26, 2020 Admission HPI Per Admitting Provider The patient is an 89-year-old male with a past medical history including diabetes mellitus, diabetic peripheral neuropathy, hypertension, dyslipidemia, obesity, glaucoma, vitamin B12 deficiency and osteoarthritis. He presents with the symptoms as noted above, after exposure to his 84-year-old brother who was diagnosed with COVID-19. Work-up in the emergency department included a positive COVID-19 test, a chest x -ray showing multifocal pneumonia, creatinine 1.44, glucose 204 and vital signs included pulse ox of 92% on room air. Principal Diagnosis COVID-19 Pneumonia, Brief hypoxia Hyperglycemia Discharge Exam Constitutional WD/WN, vitals as above Eyes + anicteric sclerae ENMT Ears: no hearing impairment Neck trachea midline, no thyromegaly Respiratory normal respiratory effort, lungs clear to auscultation Cardiovascular RRR, no murmur, no edema Chest (Breasts) Chest: normal inspection of chest Gastrointestinal (Abdomen) normal bowel sounds, soft, nontender, no hepatosplenomegaly Musculoskeletal Extremities: extremities normal to inspection; no cyanosis and no clubbing Skin no rashes, warm and dry Neurologic moves all extremities and awake; no focal motor deficits Psychiatric A+Ox3, euthymic affect Lymphatic no lymphedema Discharge Data Allergies Allergy/AdvReac Type Severity Reaction Status Date / Time omeprazole AdvReac Mild Unknown Verified 10/24/20 18:18 Consultations 10/24/20 19:32 ED Decision to Admit Stat 10/25/20 00:57 Consult Case Management - Discharge Planning Routine Ordered Studies CXR Hospital Course (1) Pneumonia due to 2019 novel coronavirus: Pneumonia due to COVID-19 virus/hypoxia/acute viral syndrome- Chest x-ray with bilateral basilar opacities and small left pleural effusion He remains afebrile Patient had mild hypoxia and the generalized myalgias and arthralgias that go along with a viral syndrome. Also had diarrhea which is now resolved Hypoxia completely resolved, feeling great and ready for discharge after receiving IV fluids, steroids. He is tolerating p.o. Pulse ox is now 94-95% on room air at rest Continue dexamethasone 6 mg po every morning on discharge for 10-day course total received 2 days of remdesivir IV but can discontinue upon discharge (2) Hypoxia: See above, now resolved (3) Diabetes: Hemoglobin A1c 8.1% With hyperglycemia here worsened by missing his usual doses of insulin prior to admission as well as corticosteroids Increased Lantus to 45 units in the morning and 30 units at night for discharge which improved his hyperglycemia here After course of decadron compelted, can return to usual doses restart metformin from home (4) Diabetic neuropathy: Continue gabapentin (5) Dyslipidemia: Continue simvastatin. (6) HTN (hypertension): Blood pressures are normal -continue lisinopril (7) Acute kidney injury: Creatinine 1.44 upon admission, with baseline 1.2. Placed on NSS at 100 mils per hour x1 L and now creatinine is down to 1.13 which is baseline -Avoid nephrotoxins -renally dose meds when appropriate (8) DVT prophylaxis: Lovenox SQ Disposition dc to home. PT worked with him and he did well Total Time Total Time Spent Total Time Spent (In Minutes): 35 min Total Time Includes: Examination of the Patient, Discharge Planning and Medication Reconciliation Discharge Plan Discharge Items Patient Disposition: Home - Self-Care Reason For Visit: PNEUMONIA DUE TO COVID-19 WITH HYPOXIA Discharge Diagnosis: COVID-19 Pneumonia, Brief hypoxia Condition on Discharge: Good Activity: As commented below Lifting: Gradually increase as tolerated Bathing: No limitations Exercise/Sports: Gradually increase as tolerated Non-emergency contact: Primary Care Provider Call non-emergency contact if: you have any medication questions and your symptoms worsen Follow-up/Referrals: Jr Curry, DO [Primary Care Provider] - (Please follow up within 1-2 weeks) Diet: Carb Consistent or DM2 and Heart Healthy Addtl Attending Provider Instructions: Please finish out the dexamethasone for your pneumonia. You were not requiring oxygen and were feeling much better at the time of discharge. This medication will make your blood sugar higher than usual. Please increase your Lantus dosing as instructed on the discharge medication list for the next 8 days and then return to your usual dosing after that once you're finished with the dexamethasone. Remain in quarantine for one more week. Home Isolation COVID-19 Instructions The following information about Home Isolation is from the CDC Website: https://www.cdc.gov/coronavirus/2019-ncov/hcp/vwkojpxu-ouvewvb-jmkhjh.html Stay home except to get medical care People who are mildly ill with COVID-19 are able to isolate at home during their illness. You should restrict activities outside your home, except for getting medical care. Do not go to work, school, or public areas. Avoid using public transportation, ride-sharing, or taxis. Separate yourself from other people and animals in your home People: As much as possible, you should stay in a specific room and away from other people in your home. Also, you should use a separate bathroom, if available. Animals: You should restrict contact with pets and other animals while you are sick with COVID-19, just like you would around other people. Although there have not been reports of pets or other animals becoming sick with COVID-19, it is still recommended that people sick with COVID-19 limit contact with animals until more information is known about the virus. When possible, have another member of your household care for your animals while you are sick. If you are sick with COVID-19, avoid contact with your pet, including petting, snuggling, being kissed or licked, and sharing food. If you must care for your pet or be around animals while you are sick, wash your hands before and after you interact with pets and wear a face mask. Call ahead before visiting your doctor If you have a medical appointment, call the healthcare provider and tell them that you have or may have COVID-19. This will help the healthcare providers office take steps to keep other people from getting infected or exposed. Wear a face mask You should wear a face mask when you are around other people (e.g., sharing a room or vehicle) or pets and before you enter a healthcare providers office. If you are not able to wear a face mask (for example, because it causes trouble breathing), then people who live with you should not stay in the same room with you, or they should wear a face mask if they enter your room. Cover your coughs and sneezes Cover your mouth and nose with a tissue when you cough or sneeze. Throw used tissues in a lined trash can. Immediately wash your hands with soap and water for at least 20 seconds or, if soap and water are not available, clean your hands with an alcohol-based hand sap fico architect that contains at least 60% alcohol. Clean your hands often Wash your hands often with soap and water for at least 20 seconds, especially after blowing your nose, coughing, or sneezing; going to the bathroom; and before eating or preparing food. If soap and water are not readily available, use an alcohol-based hand sap fico architect with at least 60% alcohol, covering all surfaces of your hands and rubbing them together until they feel dry. Soap and water are the best option if hands are visibly dirty. Avoid touching your eyes, nose, and mouth with unwashed hands. Avoid sharing personal household items You should not share dishes, drinking glasses, cups, eating utensils, towels, or bedding with other people or pets in your home. After using these items, they should be washed thoroughly with soap and water. Clean all high-touch surfaces everyday High touch surfaces include counters, tabletops, doorknobs, bathroom fixtures, toilets, phones, keyboards, tablets, and bedside tables. Also, clean any surfaces that may have blood, stool, or body fluids on them. Use a household cleaning spray or wipe, according to the label instructions. Labels contain instructions for safe and effective use of the cleaning product including preca utions you should take when applying the product, such as wearing gloves and making sure you have good ventilation during use of the product. Monitor your symptoms Seek prompt medical attention if your illness is worsening (e.g., difficulty breathing).Beforeseeking care, call your healthcare provider and tell them that you have, or are being evaluated for, COVID-19. Put on a face mask before you enter the facility. These steps will help the healthcare providers office to keep other people in the office or waiting room from getting infected or exposed. Ask your healthcare provider to call the local or state health department. Persons who are placed under active monitoring or facilitated self- monitoring should follow instructions provided by their local health department or occupational health professionals, as appropriate. When working with your local health department check their available hours. If you have a medical emergency and need to call 911, notify the dispatch personnel that you have, or are being evaluated for COVID-19. If possible, put on a face mask before emergency medical services arrive. Discontinuing home isolation Patients with confirmed COVID-19 should remain under home isolation precautions until the risk of secondary transmission to others is thought to be low. The decision to discontinue home isolation precautions should be made on a [id number] basis, in consultation with healthcare providers and state and local health departments. Pending Studies at Discharge: No Stand-Alone Forms: My [facility] Medications and DC Order Prescriptions: New dexamethasone [Decadron] 6 mg tablet 6 mg PO DAILY Qty: 8 RF: 0 Continued cyanocobalamin (vitamin B-12) 1,000 mcg tablet 1,000 mcg PO DAILY RF: 0 cholecalciferol (vitamin D3) 25 mcg (1,000 unit) tablet 1,000 units PO DAILY RF: 0 nystatin 100,000 unit/gram powder 1 applic TOP BID PRN (Reason: Skin Irritation) RF: 0 dorzolamide-timolol 22.3-6.8 mg/mL drops 1 drp OPB BID RF: 0 latanoprost 0.005 % drops 1 drp OPB QPM RF: 0 lisinopril 20 mg tablet 20 mg PO DAILY RF: 0 metformin 1,000 mg tablet 1,000 mg PO BID RF: 0 gabapentin 300 mg Capsule 300 mg PO TID RF: 0 simvastatin 40 mg tablet 20 mg PO QAM RF: 0 Changed insulin glargine 100 unit/mL solution 45 sc subcut QAM Qty: 0 RF: 0 Lantus U-100 Insulin 100 unit/mL solution 30 unit SUBCUT QPM Qty: 0 RF: 0 Discharge Orders: Discharge Order (Routine); Ordered 10/26/20 Ordered By: Adore Marin/Other Patient Handouts: High Blood Sugar (Hyperglycemia), Hypoglycemia (Low Blood Sugar), Managing Type 2 Diabetes Admission Data Admit Date/Time: 10/24/20 20:30 Attending Provider: Adore Chambers Admit Provider: Cory Majano Primary Care Provider: Jr Curry Other Providers: Cory Majano Coding Level of Care Code D/C Day Management >30 mins Diagnoses Pneumonia due to 2019 novel coronavirus U07.1; J12.89 Hypoxia R09.02 Diabetes E11.9 Diabetic neuropathy E11.40 Dyslipidemia E78.5 HTN (hypertension) I10 Acute kidney injury N17.9 DVT prophylaxis Z29.9
== END 2020-10-26 15:15 | disposition home or self-care (01) | DRG 177 ==
LOC: ED 17:03 → SUATTDRO 20:30 → EDINP 20:30 → 2S 10-26 02:14

== ENCOUNTER 2022-01-17 05:09 | Observation (INO) ==
--- NOTE | 2021-08-01 14:09 | PAT Medication Instructions ---
Medication Instructions Date of Service August 01, 2021 Home Medications dorzolamide 22.3 mg-timolol 6.8 mg/mL eye drops 1 drp OPB BID gabapentin 300 mg capsule 300 mg PO TID latanoprost 0.005 % eye drops 1 drp OPB QPM lisinopril 20 mg tablet 20 mg PO QAM metformin 1,000 mg tablet 1,000 mg PO BID cholecalciferol (vitamin D3) 25 mcg (1,000 unit) tablet 1,000 units PO QAM cyanocobalamin (vitamin B-12) 1,000 mcg tablet 1,000 mcg PO QAM simvastatin 40 mg tablet 20 mg PO BID insulin glargine 100 unit/mL subcutaneous solution (Lantus U-100 Insulin) 1 unit SUBCUT UD DO NOT take the morning of surgery lisinopril 20 mg tablet 20 mg PO QAM metformin 1,000 mg tablet 1,000 mg PO BID cholecalciferol (vitamin D3) 25 mcg (1,000 unit) tablet 1,000 units PO QAM cyanocobalamin (vitamin B-12) 1,000 mcg tablet 1,000 mcg PO QAM Take morning of surgery With a small sip of water, OTHERWISE NOTHING TO EAT OR DRINK AFTER MIDNIGHT: dorzolamide 22.3 mg-timolol 6.8 mg/mL eye drops 1 drp OPB BID gabapentin 300 mg capsule 300 mg PO TID simvastatin 40 mg tablet 20 mg PO BID Take evening before surgery dorzolamide 22.3 mg-timolol 6.8 mg/mL eye drops 1 drp OPB BID gabapentin 300 mg capsule 300 mg PO TID latanoprost 0.005 % eye drops 1 drp OPB QPM metformin 1,000 mg tablet 1,000 mg PO BID simvastatin 40 mg tablet 20 mg PO BID insulin glargine 100 unit/mL subcutaneous solution (Lantus U-100 Insulin) 1 unit SUBCUT UD Insulin Dependent Diabetic Patients * Test your blood sugar the morning of surgery * If Blood Sugar is GREATER THAN 150, take HALF of your regular dose of: insulin glargine 100 unit/mL subcutaneous solution (Lantus U-100 Insulin) (20 units) * If Blood Sugar is LESS THAN 150, DO NOT TAKE ANY: insulin glargine 100 unit/mL subcutaneous solution (Lantus U-100 Insulin) 1 unit SUBCUT UD Other Notes If you have any questions please call us at [phone] or [phone] or [phone] or [phone]
--- NOTE | 2021-08-02 12:13 | Anesthesiology Consultation ---
Date of Service August 02, 2021 Assessment & Plan (1) Encounter for pre-operative examination: Chart Review Chart Review: Pending: Refer to Additional Notes / Consult section ([facility] 08[facility], surgeon ordered PCP clearance (response on CXR), vascular note and imaging if available and preop Covid testing results ) and Patient seen in Pre Admission Testing - Will get [facility] results done at [facility] on 08/02/21 (PRP and Hgb A1C) - Awaiting surgeon ordered PCP clearance on 08/09/21 (wrote note to PCP to address CXR results at appt) - Will attempt to get last vascular note and aneurysm imaging - Check BSG AM DOS Per PAT appt on 08/02/21, patient denies any recent travel or large group activities. No known Covid positive contacts or Covid related symptoms. No known Covid infection in the past 90 days. Pt is vaccinated for Covid. Preop Covid testing scheduled 08/19/21 = will await results. Educated on importance of self quarantining, social distancing and wearing mask in public for the patient one week prior to surgery and after Covid testing done Teaching & Discussion Pre-Anesthesia Teaching/Discussion Notes: Instructed NPO after midnight before surgery,except medications with 15 cc of water. Medication instructions provided according to the PAT guidelines. History Surgery Operation Date: 08/23/21 10:25 Proposed Procedures p Left Total Knee Arthroplasty - Arden Wick MD Height/Weight Height: 5 ft 10 in Weight: 105.4 kg Allergies Allergy/AdvReac Type Severity Reaction Status Date / Time No Known Allergies Allergy Verified 08/01/21 11:38 Medications Home Medications Medication Instructions Recorded Confirmed Last Taken dorzolamide 22.3 mg-timolol 6.8 1 drp OPB BID 08/27/18 08/01/21 10/23/20 mg/mL eye drops gabapentin 300 mg capsule 300 mg PO TID 08/27/18 08/01/21 10/23/20 latanoprost 0.005 % eye drops 1 drp OPB QPM 08/27/18 08/01/21 10/23/20 lisinopril 20 mg tablet 20 mg PO QAM 08/27/18 08/01/21 10/23/20 metformin 1,000 mg tablet 1,000 mg PO BID 08/27/18 08/01/21 10/23/20 cholecalciferol (vitamin D3) 25 1,000 units PO QAM 09/08/19 08/01/21 10/23/20 mcg (1,000 unit) tablet cyanocobalamin (vitamin B-12) 1,000 mcg PO QAM 09/08/19 08/01/21 10/23/20 1,000 mcg tablet simvastatin 40 mg tablet 20 mg PO BID 10/24/20 08/01/21 10/23/20 insulin glargine 100 unit/mL 1 unit SUBCUT UD 08/01/21 08/01/21 Unknown subcutaneous solution (Lantus U-100 Insulin) Past Medical History Medical History Aneurysm artery, iliac FOLLOWS WITH DR. WILDER EVERY TWO YEARS Diabetes mellitus, type 2 Glucose well controlled per patient Dyslipidemia GERD (gastroesophageal reflux disease) Well controlled and stable Glaucoma History of COVID-19 -2019 (HOSPITALIZED 2 DAYS FOR PNX>NO CURRENT PROBLEMS) HTN (hypertension) Hx of bladder cancer S/p TURBT - 1980 - no current issues Obesity (BMI 30-39.9) Osteoarthritis Exercise / Class Metabolic Activity III < 4 Walking/Shop/Light housework (no chest pain or SOB with flat surface ambulation - uses cane with ambulation ) Past Family History Family History Father Myocardial infarction Grandfather (Paternal) No problems noted. Mother Hypertension Stroke Daughter Breast cancer Diabetes Grandmother (Maternal) No problems noted. Grandfather (Maternal) Diabetes Other No family history of adverse response to anesthesia Denies family history of Ovarian cancer Prostate cancer Lung cancer Past Surgical History Surgical History H/O Achilles tendon repair LEFT H/O vascular surgery 2011 ? AREA FOR ILIAC ANUERYSM History of bladder surgery BLADDER TUMOR REMOVED (SURGERY ONLY) History of cataract surgery RT/LEFT History of cholecystectomy History of colonoscopy History of cystoscopy History of esophagogastroduodenoscopy (EGD) History of tooth extraction Past Anesthesia History No Hx of Anesthesia Complications and No Family Hx of Anesthesia Complications History of PONV No Hx of PONV and No Hx of Motion Sickness Social History Smoking Status: Former smoker tobacco type: cigarettes Do You Dip or Chew Tobacco: No Smoking End Date: 25 YEARS AGO Hx Alcohol Use: No substance use type: does not use Review of Systems Patient denies chest pain, shortness of breath, dyspnea on exertion, cough, wheezing, palpitations. No hx of seizures, stroke, ID, apnea/snoring. No hx of blood clots or blood transfusions Physical Exam Vital Signs VITALS BP 150/75 (usually well controlled per patient) P 75 TEMP 97.8 SP02 97% RESP 16 Constitutional no acute distress ENMT Mouth: no TMJ clicking Thyromental Distance: > or= 3.5 Finger Breadths (3.5) Mallampati Class: I Full dentures on top and bottom Neck + limited neck extension (significant ) Respiratory normal respiratory effort; no respiratory distress Auscultation: lungs clear to auscultation bilaterally; no wheezes Cardiovascular Rate/Rhythm: regular rate and regular rhythm Heart Sounds: no murmur Vessels: no carotid bruit Musculoskeletal Spine: + pain with cervical ROM (stiffness ) Extremities: extremities normal to inspection Psychiatric Orientation: alert Lab Results Anesthesia Preop Results Results Anesthesia Widget: WBC 8.63 K/uL (4.8-10.8) 08/02/21 Hgb 14.0 g/dL (14.0-18.0) 08/02/21 Hct 42.3 % (42-52) 08/02/21 Plt 190 K/uL (130-400) 08/02/21 PT 10.3 Seconds (9.0-12.0) 08/02/21 PTT 27.4 Seconds (21.0-31.0) 08/02/21 INR 1.0 (0.9-1.1) 08/02/21 Blood Type O Positive 08/02/21 Antibody Screen NEGATIVE 08/02/21 Testing Electrocardiogram Date: 10/19/20 Findings: + NSR @ (84bpm ) Normal EKG per cardio. Chest X-Ray Date: 08/02/21 Faint bilateral lower lung opacities are seen, similar in appearance to prior exam. This may represent atelectasis, pneumonia, and/or aspiration (Will note to PCP to address at PCP appt on 08/09/21)
--- NOTE | 2021-12-22 16:36 | PAT Medication Instructions ---
Medication Instructions Date of Service December 22, 2021 Home Medications dorzolamide 22.3 mg-timolol 6.8 mg/mL eye drops 1 drp OPB BID gabapentin 300 mg capsule 300 mg PO TID latanoprost 0.005 % eye drops 1 drp OPB QPM lisinopril 20 mg tablet 20 mg PO QAM metformin 1,000 mg tablet 1,000 mg PO BID cholecalciferol (vitamin D3) 25 mcg (1,000 unit) tablet 1,000 units PO QAM cyanocobalamin (vitamin B-12) 1,000 mcg tablet 1,000 mcg PO QAM insulin glargine 100 unit/mL subcutaneous solution (Lantus U-100 Insulin) 1 unit SUBCUT UD simvastatin 40 mg tablet 20 mg PO HS DO NOT take the morning of surgery lisinopril 20 mg tablet 20 mg PO QAM cholecalciferol (vitamin D3) 25 mcg (1,000 unit) tablet 1,000 units PO QAM cyanocobalamin (vitamin B-12) 1,000 mcg tablet 1,000 mcg PO QAM metformin 1,000 mg tablet 1,000 mg PO BID Take morning of surgery With a small sip of water, OTHERWISE NOTHING TO EAT OR DRINK AFTER MIDNIGHT: dorzolamide 22.3 mg-timolol 6.8 mg/mL eye drops 1 drp OPB BID gabapentin 300 mg capsule 300 mg PO TID Take evening before surgery dorzolamide 22.3 mg-timolol 6.8 mg/mL eye drops 1 drp OPB BID gabapentin 300 mg capsule 300 mg PO TID latanoprost 0.005 % eye drops 1 drp OPB QPM metformin 1,000 mg tablet 1,000 mg PO BID insulin glargine 100 unit/mL subcutaneous solution (Lantus U-100 Insulin) 1 unit SUBCUT UD simvastatin 40 mg tablet 20 mg PO HS Insulin Dependent Diabetic Patients * Test your blood sugar the morning of surgery * If Blood Sugar is GREATER THAN 150, take HALF of your regular dose of: insulin glargine 100 unit/mL subcutaneous solution (Lantus U-100 Insulin) (20 units) * If Blood Sugar is LESS THAN 150, DO NOT TAKE ANY: insulin glargine 100 unit/mL subcutaneous solution (Lantus U-100 Insulin) Other Notes If you have any questions please call us at [phone] or [phone] or [phone] or [phone]
--- NOTE | 2021-12-26 11:38 | Anesthesiology Consultation ---
Date of Service December 26, 2021 Assessment & Plan (1) Encounter for pre-operative examination: Chart Review Chart Review: Acceptable Risk for Surgery (pending surgeon ordered PCP clearance scheduled 12/27 and preop Covid testing results ) and Patient seen in Pre Admission Testing - Awaiting PCP clearance (Patricio) scheduled 12/27/21 - Check BSG AM DOS Per PAT appt on 12/21/21, patient denies any recent travel or large group activities. No known Covid positive exposures or Covid related symptoms. No known Covid infection in the past 90 days. Pt is vaccinated for Covid. Preop Covid testing scheduled 01/13/22= will await results. Educated on importance of self quarantining, social distancing and wearing mask in public for the patient one week prior to surgery and after Covid testing done Pt last by vascular surgery 12/07/2021 = seen for follow-up on iliac artery aneurysm repair. Patient presents for 2-year follow-up visit. Patient has been doing well and no significant changes in his health. Aortoiliac ultrasound performed at appointment. His ultrasound continues to demonstrate a widely patent endograft. Follow-up in 2 years. Teaching & Discussion Pre-Anesthesia Teaching/Discussion Notes: Instructed NPO after midnight before surgery,except medications with 15 cc of water. Medication instructions provid ed according to the PAT guidelines. History Surgery Operation Date: 01/17/22 07:00 Proposed Procedures p Left Total Knee Arthroplasty - Arden Wick MD Height/Weight Height: 5 ft 10 in Weight: 103.4 kg Allergies Allergy/AdvReac Type Severity Reaction Status Date / Time No Known Allergies Allergy Verified 12/22/21 14:09 Medications Home Medications Medication Instructions Recorded Confirmed Last Taken dorzolamide 22.3 mg-timolol 6.8 1 drp OPB BID 08/27/18 12/22/21 10/23/20 mg/mL eye drops gabapentin 300 mg capsule 300 mg PO TID 08/27/18 12/22/21 10/23/20 latanoprost 0.005 % eye drops 1 drp OPB QPM 08/27/18 12/22/21 10/23/20 lisinopril 20 mg tablet 20 mg PO QAM 08/27/18 12/22/21 10/23/20 metformin 1,000 mg tablet 1,000 mg PO BID 08/27/18 12/22/21 10/23/20 cholecalciferol (vitamin D3) 25 1,000 units PO QAM 09/08/19 12/22/21 10/23/20 mcg (1,000 unit) tablet cyanocobalamin (vitamin B-12) 1,000 mcg PO QAM 09/08/19 12/22/21 10/23/20 1,000 mcg tablet insulin glargine 100 unit/mL 1 unit SUBCUT UD 08/09/21 12/22/21 Unknown subcutaneous solution (Lantus U-100 Insulin) simvastatin 40 mg tablet 20 mg PO HS tab 08/09/21 12/22/21 Unknown Past Medical History Medical History (Updated 12/26/21 @ 11:53 by Carina Duque PA-C) Aneurysm artery, iliac - S/p repair in 2011 Per ultrasound from 12/07/21 noted in 12/07/21 vascular note- "Demonstrated a patent endovascular iliac artery aneurysm repair without evidence of stenosis or endoleak. Has residual aneurysm sac of the left measuring 2.2 cmunchanged from previous postop ultrasound" - FOLLOWS WITH DR. WILDER- last seen 12/07/21 Diabetes mellitus, type 2 Glucose stable Dyslipidemia GERD (gastroesophageal reflux disease) Well controlled and stable Glaucoma Follows routinely eye doctor History of COVID-19 -2019 (HOSPITALIZED 2 DAYS FOR PNX>NO CURRENT PROBLEMS) HTN (hypertension) Hx of bladder cancer S/p TURBT - 1980 - no current issues Obesity (BMI 30-39.9) Osteoarthritis Exercise / Class Metabolic Activity II 4-5 Yardwork/Stairs/Walk up hill (one flight of stairs- no chest pain or SOB - uses cane in public with ambulation ) Past Family History Family History Father Myocardial infarction Grandfather (Paternal) No problems noted. Mother Hypertension Stroke Daughter Breast cancer Diabetes Grandmother (Maternal) No problems noted. Grandfather (Maternal) Diabetes Other No family history of adverse response to anesthesia Denies family history of Ovarian cancer Prostate cancer Lung cancer Past Surgical History Surgical History H/O Achilles tendon repair LEFT H/O vascular surgery Endovascular left common iliac artery aneurysm repair 2011 History of bladder surgery BLADDER TUMOR REMOVED (SURGERY ONLY) History of cataract surgery RT/LEFT History of cholecystectomy History of colonoscopy History of cystoscopy History of esophagogastroduodenoscopy (EGD) History of tooth extraction Past Anesthesia History No Hx of Anesthesia Complications and No Family Hx of Anesthesia Complications History of PONV No Hx of PONV and No Hx of Motion Sickness Social History Smoking Status: Former smoker tobacco type: cigarettes Do You Dip or Chew Tobacco: No Smoking End Date: >25 YEARS AGO Hx Alcohol Use: No Hx Substance Use: No substance use type: does not use Review of Systems Patient denies chest pain, shortness of breath, dyspnea on exertion, cough, wheezing, palpitations. No hx of seizures, stroke, MT, apnea/snoring. No hx of blood clots or blood transfusions Physical Exam Vital Signs VITALS BP 119/70 P 73 TE 97.9MP SP02 97% RESP 16 Constitutional no acute distress ENMT Mouth: no TMJ clicking Thyromental Distance: > or= 3.5 Finger Breadths (3.5) Mallampati Class: I Neck + limited neck extension Respiratory normal respiratory effort; no respiratory distress Auscultation: lungs clear to auscultation bilaterally; no wheezes Cardiovascular Rate/Rhythm: regular rate and regular rhythm Heart Sounds: no murmur Vessels: no carotid bruit Musculoskeletal Spine: no pain with cervical ROM Extremities: extremities normal to inspection Psychiatric Orientation: alert Lab Results Anesthesia Preop Results Results Anesthesia Widget: WBC 8.58 K/uL (4.8-10.8) 12/26/21 Hgb 14.5 g/dL (14.0-18.0) 12/26/21 Hct 44.4 % (42-52) 12/26/21 Plt 160 K/uL (130-400) 12/26/21 Na 135 mmol/L (136-145) L 12/26/21 K 4.7 mmol/L (3.5-5.1) 12/26/21 Cl 100 mmol/L (98-107) 12/26/21 CO2 28 mmol/L (21-32) 12/26/21 BUN 13 mg/dl (6-23) 12/26/21 Creat 1.10 mg/dl (0.6-1.4) 12/26/21 Glucose Level 194 mg/dl (70-99(Fasting)) H 12/26/21 PT 10.1 Seconds (9.0-12.0) 12/26/21 PTT 27.6 Seconds (21.0-31.0) 12/26/21 INR 1.0 (0.9-1.1) 12/26/21 HA1c 7.4 % (4.5-5.6) H 12/26/21 Blood Type O Positive 12/26/21 Antibody Screen NEGATIVE 12/26/21 Testing Electrocardiogram Date: 12/26/21 SR with 1st degree AVB at 76bpm Otherwise normal EKG per cardio. Chest X-Ray Date: 12/26/21 FINDINGS: No pneumothorax. No pleural effusions. The heart remains top normal in size. No new focal lung consolidations to suggest pneumonia. No evidence for pulmonary edema. Chronic interstitial thickening most pronounced within the lung bases persists. This is similar to the prior studies. Partially visualized aortic stent graft is noted. IMPRESSION: Chronic interstitial thickening, unchanged. Otherwise, no acute process within the chest.
[~2022-01-17 05:09] MED LIST changes: -CSPOPS; -GLC500 PO; -INSDGIPEN SC; -LATA0.009; -LISI20TA3 PO; -MCR5 PO; -OXYC-57 PO; +ROPIVACAINE 0.5% HCL/PF 150 MG, BUPIVACAINE 0.75% MPF 20 ML, EPINEPHrine 0.15 MG, Ketor... INFIL SCH; -SIMV20TA2 PO
[2022-01-17] MEDS ORDERED: traMADol HCL 50 MG TABLET PO SCH (06:00)
[2022-01-17] MEDS ORDERED: ROPIVACAINE 0.5% HCL/PF 150 MG, BUPIVACAINE 0.75% MPF 20 ML, EPINEPHrine 0.15 MG, Ketor... INFIL SCH (06:00)
[2022-01-17] MEDS ORDERED: LR 60ML/HR IV SCH (06:00)
[2022-01-17] MEDS ORDERED: cloNIDine HCL 0.1 MG/24 HR TRANSDERM SYS TD SCH (06:00)
[2022-01-17] MEDS ORDERED: TRANEXAMIC ACID 1,000 MG **IV Pre-op IV SCH (06:00)
[2022-01-17] MEDS ORDERED: CeleBREX 200 MG CAP PO SCH (06:00)
[2022-01-17] MEDS ORDERED: LR 500ML BOLUS, THEN 15ML/HR IV SCH (06:00)
[2022-01-17] MEDS ORDERED: oxyCODONE HCL 10 MG TABCR (OxyCONTIN) PO SCH (06:00)
[2022-01-17] MEDS ORDERED: ACETAMINOPHEN 500 MG TAB PO SCH (06:00)
[2022-01-17] MEDS ORDERED: FAMOTIDINE 20 MG TAB PO SCH (06:00)
[2022-01-17] MEDS ORDERED: ceFAZolin 2000MG 2,000 MG/15 ML SYR IV SCH (06:00)
[2022-01-17] MEDS ORDERED: TRANEXAMIC ACID 1,000 MG **IV Intra-op IV SCH (06:00)
[2022-01-17] MEDS ORDERED: METOCLOPRAMIDE HCL 10 MG TABLET PO SCH (06:00)
[2022-01-17] MEDS ORDERED: ROPIVACAINE 0.5% 5 MG/ML 30 ML VIAL ONE (06:23)
[2022-01-17] MEDS ORDERED: EPINEPHrine INJ 1 MG/ML AMP ONE (06:23)
[2022-01-17] MEDS ORDERED: LIDOCAINE 2%/EPINEPHRINE 1:200,000 20 ML SDV ONE (06:24)
[2022-01-17] MEDS ORDERED: BUPIVACAINE 0.5 % 5 MG/1 ML PF 10ML VIAL ONE (06:38)
[2022-01-17] MEDS ORDERED: PROPOFOL IV EMULSION 10 MG/ML 20 ML VIAL IV ONE ×5 (06:40→09:39)
[2022-01-17] MEDS ORDERED: ORTHO JOINT ANESTHETIC ONE (06:40)
[2022-01-17] MEDS ORDERED: fentaNYL citrate 100 MCG/2 ML VIAL ONE (06:40)
[2022-01-17] MEDS ORDERED: ceFAZolin 330 MG/ML 1 GM VIAL ONE (06:40)
[2022-01-17] MEDS ORDERED: VANCOMYCIN HCL 1000MG/20ML VIAL ONE ×3 (06:40→07:46)
[2022-01-17] MEDS ORDERED: MIDAZOLAM HCL 1 MG/ML 2ML VIAL ONE (06:40)
[2022-01-17] MEDS ORDERED: ONDANSETRON INJ 2 MG/ML 2 ML VIAL ONE (06:40)
--- NOTE | 2022-01-17 06:40 | History & Physical Bridge Note ---
Date of Service January 17, 2022 History & Physical Bridge Note I have examined the patient, reviewed the History & Physical and in the interval since the performance of the History & Physical I have noted the following changes of clinical significance: no changes noted
[2022-01-17] MEDS ORDERED: ePHEDrine sulfate 50 MG/ML AMP IV PRN (09:31)
[2022-01-17] MEDS ORDERED: ATROPINE SULFATE 0.1 MG/ML 10ML SYR IV PRN (09:31)
[2022-01-17] MEDS ORDERED: PHENYLEPHRINE HCL 10 MG/ML VIAL ONE (09:39)
--- NOTE | 2022-01-17 10:39 | Operative Report ---
Post Operative Report Pre & Post Diagnosis Operation Date: 01/17/22 07:00 Pre-Op Diagnosis: Left Knee Osteoarthritis Post-Op Diagnosis: Left Knee Osteoarthritis I identified the patient and participated in the time-out.: Yes Procedure Operation Date: 01/17/22 07:00 Actual Procedures p Left Total Knee Arthroplasty(Left) - Arden Wick MD Surgeon Arden Wick MD Power Plant Supervisor Jhon Bunch fellow, Brionna TORRES. Estimated Blood Loss 5 Findings Consistent with Post-Op Diagnosis Specimens Bone and soft tissue Drains None Anesthesia Type MAC Spinal Regional Complications none Disposition Accompanied Patient To Recovery: No Disposition: Recovery Room Indications Don is 89. He has left knee pain refractory to nonsurgical methods of management secondary to osteoarthritis. Treatment options risks benefits discussed and he elected to proceed with operative intervention. Description of Procedure Informed consent obtained. Patient identified. He identified the operative site as the left knee. I marked with my initials. A preoperative surgical timeout was performed. A preop dose of antibiotics was given. He was positioned supine on the OR table with a tourniquet on the left thigh and a bump under the left hip. The exam demonstrated fixed varus alignment no flexion contracture range of motion of 0 to about 120 degrees with a 1+ LCL laxity. No effusion. The leg was prescrubbed and prepped and draped in usual sterile fashion. DVT prophylaxis with mechanical devices intraoperatively and postoperatively early mobility mechanical devices and Lovenox. The limb was exsanguinated with the Esmarch. Tourniquet inflated to 250 mmHg. A midline longitudinal incision was made followed by medial parapatellar arthrotomy. An extensile medial release was performed and the retropatellar fat pad and supra femoral fat pad were excised. The synovial reflection in the lateral gutter was released. I excised the synovial tissue around the patella. The patella showed some softening of the cartilage but there were minimal to no osteophytes and no chondrosis no greater than what I would estimate to be grade 2. I took a knife and inserted it in the cartilage and it measured 3 to 4 mm in thickness and I elected to leave the patella on resurfaced. The cruciate ligaments were removed and the knee was carefully subluxated. The patient had a prominent tibial tubercle which was lateralized. An intramedullary alignment guide was inserted just in front of and between the tibial spines based upon preoperative templating. A 0 degree cutting block was applied to the knee aligned with the tibial tubercle and fixed in the place. It was set to cut 10 mm off of the lateral side corresponding to a 4 mm cut medially. 0 degree block. He was then placed into full extension and the extra medullary alignment miah was utilized to confirm tibial slope which was parallel to the shaft of the tibia. With a minor adjustment in the guide was bisecting the ankle joint and intersecting the second ray. Because of the proximal tibial geometry was very difficult to get to the lateral side of the tibial plateau. I cut as much as I could using the block and then recut. I then went ahead and used the anterior cut surface of the tibia as a guide and cut the remaining lateral margin. I think and came back at that by defining the lateral margin with the Bovie and biting off a small ridge of bone with the rongeur and using a rasp to ensure that it was smooth. I then used the flat object to ensure that the tibia was flat side to side front the back both medially and laterally. The tibia was sized to a 5. Attention was turned to the femur where a automatic pilot mechanic hole was drilled in the distal femur followed by insertion of the distal femoral cutting guide 6 degrees valgus 12 mm thick cut. This was pinned into place and the collaterals were checked. Cut was then made. Subsequent to that the extension gap was noted to be 10 mm but asymmetric with some residual lateral laxity. I then went ahead and marked out the epicondylar axis and applied the distal femoral cutting sizing guide. It was sized to a 5 and the appropriate external rotation drill holes were made which matched the epicondylar axis. The size 5 anterior down cutting block was applied. The collateral ligaments were protected and the cuts were made. A small ned was made into the posterior medial tibia from the chamfer cut. The flexion gap was a symmetric 10. I then went ahead and released posterior capsule and resected posterior osteophytes and did a more extensile medial release and I was able to get the 12 5 block and which minimized the lateral laxity in extension. The 12.5 fit both in flexion and extension in the knee was fully extended straight without any varus alignment. The box cutting guide was applied lateralized pinned in the place and the box cut was made followed by application the size 5 distal femoral component. The tibia was prepared with the drill and keel punch. The tibia was aligned with the tibial tubercle and lateralized as much as possible. Uncapped medial bone was then resected with the saw. Trialing was performed with 10 of 12.5. The 12.5 gave the best stability illuminating mid flexion laxity both medially and laterally and minimizing lateral laxity in extension. The knee could be flexed easily to about 110 to 120 degrees and the patella tracked well. The trial components were removed. The canals were plugged. The back of the knee was injected with the Ortho joint mix. Pulsatile lavage was performed to prepare the bony surfaces and the cement was then mixed. 2 g of vancomycin per bag of cement. 2 bags of cement were utilized. These were then mixed on the back table and then when in a doughy state the femur and tibia were then cemented into place. Smears of cement were placed on the posterior condyles and the extraneous cement was removed. The knee was then reduced with a 10 mm spacer and held in full extension until the cement hardened. The cement took about 25 minutes to harden which meant I kept the tourniquet up to 135 minutes. Once the cemented hardened I let the tourniquet down. Meticulous hemostasis was performed and there was minimal if any bleeding. Ended an additional dose of TXA was given. Trialing was again performed and there was trace MCL laxity and slightly greater than 1+ LCL laxity in mid position. There was some lateral opening in full extension. I went ahead and trialed with a 12.5 mm thick poly-. There was no lateral gapping with the leg resting on the table in the extended position. The knee could be flexed to 115 degrees without difficulty. There is no lift off or pull out. Subsequently the medial mid flexion laxity and the excess lateral laxity were eliminated. The knee was able to be fully straightened without difficulty. We then went ahead inspected the back the knee for cement removing it as encountered and make sure that there was adequate hemostasis back there. The final polyethylene a 12.5 mm thick was inserted. The knee was copiously irrigated. The extensor mechanism above the equator the patella was closed with #2 FiberWire in an interrupted fashion. The extensor mechanism below the equator was closed with a running and interrupted #1 Vicryl. The skin was closed in layers with 0 and 2-0 Vicryl followed by judd on the skin. Legs cleaned with wet and dry sponges and a bulky soft sterile dressing was applied Xeroform 4 x 4's ABD cast padding full-length Timmy wrap and knee immobilizer. Patient was awakened from anesthesia without difficulty and taken to the recovery room in stable condition. The resected bone and soft tissue were sent for specimen. There were no complications. Counts were correct and blood loss was estimated to be 5 cc. At the conclusion of the operation spoke patient's daughter informed her of my findings and discussed postop instructio derrick. Plan is to transfer him to [facility] whenever he is medically stable. We will get a medical consult postoperatively. I applied vancomycin to the cement because of his history of diabetes. Bone quality was fair. Softer than average but not severe. Medial sclerosis was noted but there was adequate porosity. The patella measured about 27 mm in thickness. [place] assisted knee flexion with extensor mechanism closed was estimated to be 115 degrees. Components inserted with a [employer] Sigma rotating platform knee size 5 femur and size 5 tibia with a size 5 x 12.5 mm thick polyethylene insert. I attest to the content of the Intraoperative Record and any orders documented therein. Any exceptions are noted below.
--- NOTE | 2022-01-17 10:50 | Operative Report ---
Post Operative Report Pre & Post Diagnosis Operation Date: 01/17/22 07:00 Pre-Op Diagnosis: Left Knee Osteoarthritis Post-Op Diagnosis: Left Knee Osteoarthritis I identified the patient and participated in the time-out.: Yes Procedure Operation Date: 01/17/22 07:00 Actual Procedures p Left Total Knee Arthroplasty(Left) - Arden Wick MD Surgeon Manasa Wick MD Vacuum Cleaner Repairer Jhon Bunch fellow, Brionna TORRES. Estimated Blood Loss 5 Findings Consistent with Post-Op Diagnosis Consistent with post op diagnosis Specimens No specimens Description of Procedure I participated in prepping dressing and assisted Dr. Wick during the procedure. Please see Dr. Wick note. I attest to the content of the Intraoperative Record and any orders documented therein. Any exceptions are noted below. Supervising Physician Co-Signing Physician Notes Dr. Wick
--- NOTE | 2022-01-17 11:15 | XRay Report ---
XR knee LT 1 or 2V routine CLINICAL HISTORY: Surgical Post Op TECHNIQUE: 2 views of the left knee were obtained. Comparison: Comparison is made to leg length study 08/02/2021 FINDINGS: Patient is status post total knee arthroplasty with expected postsurgical changes including soft tiss ue swelling, subcutaneous emphysema, and surgical staple placement. No periarticular lucency or hardw are fracture is seen. The alignment is anatomic. Joint spaces are well-preserved. No joint effusion i s seen. No soft tissue abnormality is seen. IMPRESSION: Expected postoperative appearance status post placement of total knee arthroplasty. ACT 112: Negative or not required by law. Electronically signed by: Zak Vieyra M.D. 01/17/2022 11:14 AM
--- NOTE | 2022-01-17 11:34 | Anesthesiology Progress Note ---
Date of Service January 17, 2022 Anesthesia Post Procedure Vital Signs Vital Signs: Temp Pulse Pulse Resp BP Pulse Ox 01/17/22 11:20 68 13 120/69 94 01/17/22 11:10 68 13 121/73 94 01/17/22 11:00 72 12 121/78 98 01/17/22 10:50 36.2 C L 72 17 122/86 97 01/17/22 05:48 37.0 C 73 20 150/77 H 97 Transfer of Care Handoff Completed per policy Notes Mental Status: alert / awake / arousable Patient Amnestic to Procedure: Yes Nausea / Vomiting: adequately controlled Pain: adequately controlled Airway Patency, RR, SpO2: stable & adequate BP & HR: stable & adequate Hydration State: stable & adequate Neuraxial Anesthesia: was administered and sensory block is resolving Anesthetic Complications: no major complications apparent
[2022-01-17] MEDS ORDERED: HYDROmorphone INJ 0.5 MG/0.5 ML SYR IV PRN (11:55)
[2022-01-17] MEDS ORDERED: bisacodyL 10 MG SUPP PR PRN (11:55)
[2022-01-17] MEDS ORDERED: TAMSULOSIN HCL 0.4 MG CAP PO PRN (11:55)
[2022-01-17] MEDS ORDERED: ALUMINUM/MAGNESIUM SUSP 30 ML UDC PO PRN (11:55)
[2022-01-17] MEDS ORDERED: NALOXONE HCL 0.4 MG/1 ML VIAL/CARP IV PRN (11:55)
[2022-01-17] MEDS ORDERED: ONDANSETRON INJ 2 MG/ML 2 ML VIAL IV PRN (11:55)
[2022-01-17] MEDS ORDERED: PHARMACY GLYCEMIC MGMT CONSULT PRN (11:55)
[2022-01-17] MEDS ORDERED: MAGNESIUM HYDROXIDE SUSP 30 ML UDC PO PRN (11:55)
[2022-01-17] MEDS ORDERED: METOCLOPRAMIDE HCL INJ 5 MG/ML 2 ML VIAL IV PRN (11:55)
[2022-01-17] MEDS: CHECK CLONIDINE PATCH PLACEMENT SCH (12:10)
[2022-01-17] MEDS ORDERED: GLUCOSE 10 TABS/TUBE PO PRN (12:25)
[2022-01-17] MEDS ORDERED: GLUCOSE 40% GEL 15 GM TUBE PO PRN (12:25)
[2022-01-17] MEDS ORDERED: DEXTROSE 50% 50 ML SYRINGE IV PRN (12:25)
[2022-01-17] MEDS ORDERED: CARBOHYDRATES FOR HYPOGLYCEMIA PO PRN (12:25)
[2022-01-17] MEDS ORDERED: GLUCAGON FOR INJ 1 MG VIAL SQ PRN (12:25)
--- NOTE | 2022-01-17 12:26 | Hospitalist Consultation ---
Date of Consultation January 17, 2022 Assessment & Plan (1) History of total left knee replacement: Status post left TKA on 01/17 Postoperative care as per orthopedic surgery Pain control, bowel regimen, antiemetics as needed Of note, he has a clonidine patch in place as per Ortho preference I believe for pain control purposes-watch BPs Follow CBC, BMP in the morning DVT prophylaxis with SCDs, Lovenox as per Ortho (2) Diabetes: Last hemoglobin A1c well controlled at 7.4% last month ordered Lantus but changed to 30 units twice daily (home dosing 40 units in the morning 25 at night) Added NovoLog supplemental insulin with meals and at bedtime Diabetic diet Hold home Metformin The orthopedic service has consulted pharmacy for management (3) HTN (hypertension): Blood pressures normal Hold home lisinopril until ensure that blood pressure and renal function are stable in the morning as above, has clonidine patch in place as per Ortho presumably for pain control purposes-watch BP (4) Glaucoma: Continue home eyedrops (5) Diabetic neuropathy: Not on medication for this (6) Dyslipidemia: Continue simvastatin (7) Obesity (BMI 30-39.9): BMI 32.3 Needs weight loss (8) Osteoarthritis: Now requiring knee replacement as above On Celebrex inpatient (9) Vitamin B12 deficiency: Continue home B12 supplement DVT prophylaxis-SCDs, Lovenox Disposition-continued stay, hospital service will follow along History of Present Illness Reason for Consultation: Medical management Requesting Physician: Dr. Wick Attending Physician: Arden Wick MD History of Present Illness This patient is an 89-year-old male with a history of DM 2, diabetic peripheral neuropathy, suspected gastroparesis, HTN, hyperlipidemia, glaucoma, B12 deficiency, and OA who was admitted to the hospital after having a left total knee arthroplasty.He is feeling well after surgery so far. Has a clonidine patch in place for pain control as per Ortho. He denies lightheadedness, chest pain, SOB, or nausea. He is currently eating his lunch when I saw him. No pain and cannot quite feel his legs yet since the spinal anesthesia. Allergies Allergy/AdvReac Type Severity Reaction Status Date / Time No Known Allergies Allergy Verified 01/17/22 05:44 Home Medications Medication Instructions Recorded Confirmed Type dorzolamide 22.3 mg-timolol 6.8 1 drp OPB BID 08/27/18 01/17/22 History mg/mL eye drops gabapentin 300 mg capsule 300 mg PO TID 08/27/18 01/17/22 History latanoprost 0.005 % eye drops 1 drp OPB QPM 08/27/18 01/17/22 History lisinopril 20 mg tablet 20 mg PO QAM 08/27/18 01/17/22 History metformin 1,000 mg tablet 1,000 mg PO BID 08/27/18 01/17/22 History cholecalciferol (vitamin D3) 25 1,000 units PO QAM 09/08/19 01/17/22 History mcg (1,000 unit) tablet cyanocobalamin (vitamin B-12) 1,000 mcg PO QAM 09/08/19 01/17/22 History 1,000 mcg tablet simvastatin 40 mg tablet 20 mg PO HS tab 08/09/21 01/17/22 History insulin glargine 100 unit/mL See Rx Instructions SUBCUT UD 12/27/21 01/17/22 History subcutaneous solution (Lantus U-100 Insulin) Patient History Medical History Aneurysm artery, iliac - S/p repair in 2011 Per ultrasound from 12/07/21 noted in 12/07/21 vascular note- "Demonstrated a patent endovascular iliac artery aneurysm repair without evidence of stenosis or endoleak. Has residual aneurysm sac of the left measuring 2.2 cmunchanged from previous postop ultrasound" - FOLLOWS WITH DR. WILDER- last seen 12/07/21 Diabetes mellitus, type 2 Glucose stable Diabetic neuropathy Dyslipidemia GERD (gastroesophageal reflux disease) Well controlled and stable Glaucoma Follows routinely eye doctor History of COVID-19 -2019 (HOSPITALIZED 2 DAYS FOR PNX>NO CURRENT PROBLEMS) HTN (hypertension) Hx of bladder cancer S/p TURBT - 1980 - no current issues Obesity (BMI 30-39.9) Osteoarthritis Vitamin B12 deficiency Surgical History (Updated 01/17/22 @ 12:28 by Adore Chambers MD) H/O Achilles tendon repair LEFT H/O vascular surgery Endovascular left common iliac artery aneurysm repair 2011 History of bladder surgery BLADDER TUMOR REMOVED (SURGERY ONLY) History of cataract surgery RT/LEFT History of cholecystectomy History of colonoscopy History of cystoscopy History of esophagogastroduodenoscopy (EGD) History of tooth extraction History of total left knee replacement Family History Father Myocardial infarction Grandfather (Paternal) No problems noted. Mother Hypertension Stroke Daughter Breast cancer Diabetes Grandmother (Maternal) No problems noted. Grandfather (Maternal) Diabetes Other No family history of adverse response to anesthesia Denies family history of Ovarian cancer Prostate cancer Lung cancer Social History Smoking Status: Former smoker Tobacco Type: Cigarettes Age Started Using Tobacco: 21; Age Quit Using Tobacco: 69; packs per day: 3; Years Smoked: 46; Smoking End Date: >25 YEARS AGO; Second Hand Exposure: No; Do You Dip or Chew Tobacco: No; Hx Alcohol Use: No Hx Substance Use: No Preferred Language: Tanzanian Communication Ability: Effective Visual Impairment: Limited Hearing Ability: Normal Installation Manager Required: No Beliefs That Will Affect Care: None marital status: Single Current Living Situation: Alone current occupational status: retired Feels Safe at Home: Yes Safety Concerns: Feels Safe At This Time Childhood Exposure to Second-Hand Smoke: Yes caffeine: Yes Dental Care, Regularly: No Physical Activity Frequency: 3-4 Times per Week Physical Activity Frequency Comment: walk/cutting wood Seatbelt Use: always Sunscreen Use: Yes Do you think of yourself as: straight/heterosexual Assistive Devices: Glasses Review of Systems Review of Systems: All systems reviewed & are unremarkable except as noted in HPI & below Physical Exam Constitutional: WD/WN, vitals as above Eyes: + anicteric sclerae ENMT: external ear and nose normal, oropharynx normal Neck: trachea midline, no thyromegaly Respiratory: normal respiratory effort, lungs clear to auscultation Cardiovascular: RRR, no murmur, no edema Chest (Breasts): Chest: normal inspection of chest Gastrointestinal (Abdomen): normal bowel sounds, soft, nontender, no hepatosplenomegaly Musculoskeletal: Extremities: + extremities abnormal to inspection (LLE in NICK wrap,not removed), no cyanosis and no clubbing Skin: no rashes, warm and dry Neurologic: moves all extremities and awake; no focal motor deficits Psychiatric: A+Ox3, euthymic affect Lymphatic: no lymphedema Results & Data Results & Data ([facility]) Vital Signs (Past 12 Hours) Vital Signs Temp Pulse Pulse Resp BP Pulse Ox 01/17/22 11:30 36 C L 69 13 120/72 93 01/17/22 11:20 68 13 120/69 94 01/17/22 11:10 68 13 121/73 94 01/17/22 11:00 72 12 121/78 98 01/17/22 10:50 36.2 C L 72 17 122/86 97 01/17/22 05:48 37.0 C 73 20 150/77 H 97 Laboratory Results Preoperative labs reviewed ECG Additional Comments: preop ECG reviewed PG Care Time/CCT Total # of Minutes Spent Total Time Spent with Patient: Total time spent is greater than 50% in coordination of care (as documented) at patient's floor/unit and/or counseling patient: Coding Level of Care Code 87269 Inpt Consult Level 3 Diagnoses Diabetes E11.9 Glaucoma H40.9 Diabetic neuropathy E11.40 HTN (hypertension) I10 Dyslipidemia E78.5 Obesity (BMI 30-39.9) E66.9 Osteoarthritis M19.90 Vitamin B12 deficiency E53.8 History of total left knee replacement Z96.652
[2022-01-17] MEDS: INSULIN ASPART PER UNIT SC SCH ×4 (13:13→23:48)
[2022-01-17] MEDS: SODIUM CHLORIDE 0.9% 1000ML 1,000 ML IV SCH ×2 (13:18→23:40)
[2022-01-17] MEDS ORDERED: GABAPENTIN 300 MG CAP PO SCH (14:00)
--- NOTE | 2022-01-17 15:27 | Pharmacy Report ---
Pharmacy Glycemic Short Note 2 - Date of Service January 17, 2022 - Glycemic Short BSG Results (Last 24 hours): 01/17/22 01/17/22 01/17/22 05:51 10:50 12:08 POC Glucose 96 131 H 118 H OUTPATIENT ANTIDIABETIC REGIMEN: * Metformin 1000 mg PO BID * Lantus 40 units SQ QAM, 25 units SQ HS ASSESSMENT: * 89 y/o M admitted for L TKA today. Patient with history of Type 2 diabetes managed at home on Metformin and basal insulin. * Holding oral Metformin for now until closer to discharge and manage with only basal and bolus insulins. * Patient reportedly took his last Lantus dose (25 units) at home at 19:00 yesterday. * Basal Lantus was not ordered this AM prior to surgery. Lantus resumed at 20 units this evening with dinner. Re-asses dosing tomorrow. * Novolog parameters ordered based on wt and stress between 2 and 3. PLAN FOR INPATIENT GLYCEMIC CONTROL: * Hold outpatient oral diabetes medications * Basal insulin * Lantus 20 units SQ @17:00 today. Re-assess tomorrow * Bolus insulin * NovoLog per scale ACHS or Q6hrs while NPO * Goal Range: Low 110 mg/dL - High 150 mg/dL * Correction Factor: 20 mg/dL/unit * Nutritional / Prandial insulin per carb ratio of 1 unit per 7 grams CHO consumed
--- NOTE | 2022-01-17 16:19 | Anesthesiology Progress Note ---
Date of Service January 17, 2022 Anesthesia Post Procedure Vital Signs Vital Signs: Temp Pulse Pulse Pulse Resp BP Pulse Ox 01/17/22 13:57 36.3 C L 73 16 111/67 92 01/17/22 13:18 36.4 C L 01/17/22 12:49 83 16 136/76 90 01/17/22 12:16 68 16 111/68 93 01/17/22 11:50 35.7 C L 71 16 117/73 94 01/17/22 11:30 36 C L 69 13 120/72 93 01/17/22 11:20 68 13 120/69 94 01/17/22 11:10 68 13 121/73 94 01/17/22 11:00 72 12 121/78 98 01/17/22 10:50 36.2 C L 72 17 122/86 97 01/17/22 05:48 37.0 C 73 20 150/77 H 97 Transfer of Care Handoff Completed per policy Notes Mental Status: alert / awake / arousable Patient Amnestic to Procedure: Yes Nausea / Vomiting: adequately controlled Pain: adequately controlled Airway Patency, RR, SpO2: stable & adequate BP & HR: stable & adequate Hydration State: stable & adequate Anesthetic Complications: no major complications apparent
[2022-01-17] MEDS ORDERED: INSULIN ASPART PER UNIT SC SCH (16:30)
[2022-01-17] MEDS ORDERED: INSULIN GLARGINE SOLOSTAR 100 UNITS/ML 3 ML PEN SC ONE (17:00)
--- NOTE | 2022-01-17 17:16 | Orthopedic Progress Note ---
Date of Service January 17, 2022 Assessment & Plan (1) History of total left knee replacement: Plan: POD 1 - left TKA Regular diabetic diet. Hospitalist consult for medical management Case management - consider [facility] at discharge ice/elevation PRN swelling/pain Pain medication as prescribed Continue home medications WBAT with assistance of a walker Will re-eval in AM - Dr. Wick present for today's visit. Admission and Anticipated Discharge Date Admission Date: January 17, 2022 Subjective Sitting up in chair, having some pain in left thigh, but otherwise feeling good. Physical Exam Musculoskeletal: Dressings intact left lower extremity. Dosalis pedis pulse 1+, intact sensation. Strength 5/5. Results & Data ([facility]) Vital Signs (Past 12 Hours) Vital Signs Temp Pulse Pulse Pulse Resp BP Pulse Ox 01/17/22 13:57 36.3 C L 73 16 111/67 92 01/17/22 13:18 36.4 C L 01/17/22 12:49 83 16 136/76 90 01/17/22 12:16 68 16 111/68 93 01/17/22 11:50 35.7 C L 71 16 117/73 94 01/17/22 11:30 36 C L 69 13 120/72 93 01/17/22 11:20 68 13 120/69 94 01/17/22 11:10 68 13 121/73 94 01/17/22 11:00 72 12 121/78 98 01/17/22 10:50 36.2 C L 72 17 122/86 97 01/17/22 05:48 37.0 C 73 20 150/77 H 97 Diagnostic Findings XR knee LT 1 or 2V routine CLINICAL HISTORY: Surgical Post Op TECHNIQUE: 2 views of the left knee were obtained. Comparison: Comparison is made to leg length study 08/02/2021 FINDINGS: Patient is status post total knee arthroplasty with expected postsurgical changes including soft tissue swelling, subcutaneous emphysema, and surgical staple placement. No periarticular lucency or hardware fracture is seen. The alignment is anatomic. Joint spaces are well-preserved. No joint effusion is seen. No soft tissue abnormality is seen. IMPRESSION: Expected postoperative appearance status post placement of total knee arthroplasty.
[2022-01-17] MEDS: ACETAMINOPHEN 500 MG TAB PO PRN (17:33)
[2022-01-17] MEDS: ceFAZolin 2000MG 2,000 MG/15 ML SYR IV SCH (17:34)
[2022-01-17] MEDS: oxyCODONE HCL IR 5 MG TAB (IMMEDIATE RELEASE) PO PRN (20:29)
[2022-01-17] MEDS ORDERED: INSULIN GLARGINE SOLOSTAR 100 UNITS/ML 3 ML PEN SC SCH (21:00)
[2022-01-17] MEDS: DOCUSATE SODIUM 100 MG CAP PO SCH (21:07)
[2022-01-17] MEDS: DORZOLAMIDE/TIMOLOL 22.3/6.8MG/ML 10 ML BTL OPB SCH (21:07)
[2022-01-17] MEDS: SENNA 8.6 MG TAB PO SCH (21:08)
[2022-01-17] MEDS: SIMVASTATIN 20 MG TAB PO SCH (21:09)
[2022-01-17] MEDS: LATANOPROST 0.005% OP SOLN 2.5 ML BTL OPB SCH (22:13)
[2022-01-18] MEDS: ceFAZolin 2000MG 2,000 MG/15 ML SYR IV SCH (00:49)
[2022-01-18] MEDS: INSULIN ASPART PER UNIT SC SCH ×5 (04:06→21:15)
[2022-01-18] MEDS: oxyCODONE HCL IR 5 MG TAB (IMMEDIATE RELEASE) PO PRN (04:59)
[2022-01-18 06:04] LABS: Hemoglobin 12.6 g/dL (14.0-18.0); Mean Corpuscular Hemoglobin 29.9 pg (25-34); Mean Corpuscular Hgb Conc 33.2 g/dL (32-36); Mean Platelet Volume 10.1 fL (7.4-10.4); Platelet Count 114 K/uL (130-400); RDW Standard Deviation 46.3 fL (36.4-46.3); Red Blood Count 4.22 M/uL (4.7-6.1); White Blood Count 8.91 K/uL (4.8-10.8)
[2022-01-18] MEDS: ENOXAPARIN INJ 30 MG/0.3 ML SYR SQ SCH ×2 (06:07→18:40)
[2022-01-18 06:23] LABS: BUN Creatinine Ratio 18.7 (10-20); Creatinine Clr Calc Pharmacy 43.1 ml/min; Est GFR (African American) 51.7 ml/min; Est GFR (Non-African American) 44.6 ml/min; Potassium 4.7 mmol/L (3.5-5.1)
--- NOTE | 2022-01-18 08:13 | Hospitalist Progress Note ---
Date of Service January 18, 2022 Assessment & Plan (1) History of total left knee replacement: Plan: Status post left TKA on 01/17 Postoperative care as per orthopedic surgery Pain control, bowel regimen, antiemetics as needed Of note, he has a clonidine patch in place as per Ortho preference I believe for pain control purposes-watch BPs DVT prophylaxis with SCDs, Lovenox as per Ortho Slight hypoxia overnight (was given oxycodone as well) and on 3L NC -- denies shortness of breath but will check CXR given end wheezing ---> Holding off on resuming his lisinopril for now given elevated Cr (BP did drop to 106/59 overnight) CXR with mild edema, will order lasix 20mg IV x 1, monitor response and titrate oxygen as able to maintain adequate saturations Also with some confusion this morning, easily reoriented and suspect combination of anesthesia and opiates -- monitor throughout the day --> getting better throughout day. Check B12/tsh in am for completeness -- would limit opiates as much as possible Hgb 12.6 from 14.5 pre-op -- acute blood loss anemia from surgery as well as dilutional as he received IVF post-operatively Monitor labs in am (2) Volume overload: Plan: Patient without hx CHF, no murmur on examination Supplemental O2 to maintain sats --> 3L currently and CXR with mild edema Lasix ordered as above, monitor response Will also order incentive spirometer to prevent atelectasis Denies sob/chest pain, cough or sputum production Titrate O2 as able Of note, patient did have PCP visit earlier this month with reported intermittent n/v. ?if does have degree of CHF vs gastroparesis as vomiting occurred shortly after eating Will order pepcid for GI prophylaxis while inpatient (3) Diabetes: Plan: Last hemoglobin A1c well controlled at 7.4% last month ordered Lantus but changed to 30 units twice daily (home dosing 40 units in the morning 25 at night) Added NovoLog supplemental insulin with meals and at bedtime Diabetic diet Hold home Metformin The orthopedic service has consulted pharmacy for management (4) HTN (hypertension): Plan: Blood pressures normal has clonidine patch in place as per Ortho presumably for pain control purposes- watch BP Continue to hold lisinopril for now, Cr elevated to 1.39 from baseline ~1 but with volume overload and giving lasix 20mg IV x 1 now Continue to monitor (5) Glaucoma: Plan: Continue home eyedrops (6) Diabetic neuropathy: Plan: Not on medication for this Will also check b12 given confusion but suspect from medications/delirium (also checking TSH) (7) Dyslipidemia: Plan: Continue simvastatin (8) Obesity (BMI 30-39.9): Plan: BMI 32.3 Needs weight loss (9) Osteoarthritis: Plan: Now requiring knee replacement as above On Celebrex inpatient (10) Vitamin B12 deficiency: Plan: Continue home B12 supplement (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 BP control as above changing diet to heart healthy Plan: DVT prophylaxis-SCDs, Lovenox Disposition-continued stay, hospital service will follow along Admission and Anticipated Discharge Date Admission Date: January 17, 2022 Subjective Patient evaluated this morning. Did have some confusion overnight into this morning, stated he thought he wanted to say he was in [facility] but he knows that's wrong and he's int he hospital in [place]. Knows year December, easily re-oriented On supplemental O2 but denies cough/sob. Discussed cxr with some congestion and will give dose of lasix and monitor. Currently pain controlled with medications, needing to get up to use restroom, possibly have a BM. No fever, chills, chest pain, shortness of breath, abd pain, nausea, vomiting or dysuria at this time. Review of Systems Review of Systems: All systems reviewed & are unremarkable except as noted in HPI & below Physical Exam Physical Exam: General: WN/WD male sitting up in chair, NAD, needing to use restroom HEENT: eyes anicteric EOMI intact, slightly dry mm, trachea midline without deviation Resp: CTAB, diminished in the bases with faint END expiratory wheezing, no crackles/rales, on 3L NC with SpO2 sat 96% CV: RRR, no m/r/g, expected edema to LLE from surgery, calves supple and non- tender, pulses palpable GI: +BS, soft, non-tender : no dangelo MSK/Neuro: CN intact grossly, LLE with lili wrap (not removed), edema, NVI, pulses palpable, no slurred speech, facial droop, or focal deficit noted Skin: warm , dry Psych: alert, oriented to person, time, knows in hospital in [place] but initially thought was at [facility], easily reoriented Results & Data Results & Data ([facility]) Vital Signs (Past 12 Hours) Vital Signs Temp Pulse Resp BP Pulse Ox 01/18/22 07:10 36.6 C 86 16 141/67 H 96 01/18/22 04:09 95 01/18/22 04:05 84 85 L 01/18/22 02:52 36.6 C 84 16 139/66 91 01/17/22 23:49 36.8 C 72 18 106/59 L 90 Laboratory Results 01/18/22 01/18/22 01/18/22 Range/Units 08:03 05:49 05:49 WBC 8.91 (4.8-10.8) K/uL RBC 4.22 L (4.7-6.1) M/uL Hgb 12.6 L (14.0-18.0) g/dL Hct 38.0 L (42-52) % MCV 90.0 (80-100) fL MCH 29.9 (25-34) pg MCHC 33.2 (32-36) g/dL RDW Std Deviation 46.3 (36.4-46.3) fL RDW Coeff of Mya 14.0 (11.5-14.5) % Plt Count 114 L (130-400) K/uL MPV 10.1 (7.4-10.4) fL Sodium 134 L (136-145) mmol/L Potassium 4.7 (3.5-5.1) mmol/L Chloride 103 (98-107) mmol/L Carbon Dioxide 26 (21-32) mmol/L Anion Gap 5 (3-11) BUN 26 H (6-23) mg/dl Creatinine 1.39 D (0.6-1.4) mg/dl Est Cr Clr Drug Dosing 43.1 ml/min Est GFR ( Amer) 51.7 ml/min Est GFR (Non-Af Amer) 44.6 ml/min BUN/Creatinine Ratio 18.7 (10-20) Glucose 143 H (70-99(Fasting)) mg/dl POC Glucose 144 H (70-99) mg/dl Calcium 8.0 L (8.5-10.1) mg/dl 01/18/22 01/17/22 01/17/22 Range/Units 03:55 23:42 20:42 WBC (4.8-10.8) K/uL RBC (4.7-6.1) M/uL Hgb (14.0-18.0) g/dL Hct (42-52) % MCV (80-100) fL MCH (25-34) pg MCHC (32-36) g/dL RDW Std Deviation (36.4-46.3) fL RDW Coeff of Mya (11.5-14.5) % Plt Count (130-400) K/uL MPV (7.4-10.4) fL Sodium (136-145) mmol/L Potassium (3.5-5.1) mmol/L Chloride (98-107) mmol/L Carbon Dioxide (21-32) mmol/L Anion Gap (3-11) BUN (6-23) mg/dl Creatinine (0.6-1.4) mg/dl Est Cr Clr Drug Dosing ml/min Est GFR ( Amer) ml/min Est GFR (Non-Af Amer) ml/min BUN/Creatinine Ratio (10-20) Glucose (70-99(Fasting)) mg/dl POC Glucose 128 H 122 H 139 H (70-99) mg/dl Calcium (8.5-10.1) mg/dl 01/17/22 01/17/22 01/17/22 Range/Units 17:02 12:08 10:50 WBC (4.8-10.8) K/uL RBC (4.7-6.1) M/uL Hgb (14.0-18.0) g/dL Hct (42-52) % MCV (80-100) fL MCH (25-34) pg MCHC (32-36) g/dL RDW Std Deviation (36.4-46.3) fL RDW Coeff of Mya (11.5-14.5) % Plt Count (130-400) K/uL MPV (7.4-10.4) fL Sodium (136-145) mmol/L Potassium (3.5-5.1) mmol/L Chloride (98-107) mmol/L Carbon Dioxide (21-32) mmol/L Anion Gap (3-11) BUN (6-23) mg/dl Creatinine (0.6-1.4) mg/dl Est Cr Clr Drug Dosing ml/min Est GFR ( Amer) ml/min Est GFR (Non-Af Amer) ml/min BUN/Creatinine Ratio (10-20) Glucose (70-99(Fasting)) mg/dl POC Glucose 126 H 118 H 131 H (70-99) mg/dl Calcium (8.5-10.1) mg/dl Diagnostic Findings Knee X-Ray 01/17/22 10:52 XR knee LT 1 or 2V routine CLINICAL HISTORY: Surgical Post Op TECHNIQUE: 2 views of the left knee were obtained. Comparison: Comparison is made to leg length study 08/02/2021 FINDINGS: Patient is status post total knee arthroplasty with expected postsurgical changes including soft tissue swelling, subcutaneous emphysema, and surgical staple placement. No periarticular lucency or hardware fracture is seen. The alignment is anatomic. Joint spaces are well-preserved. No joint effusion is seen. No soft tissue abnormality is seen. IMPRESSION: Expected postoperative appearance status post placement of total knee arthroplasty. ACT 112: Negative or not required by law. Electronically signed by: Zak Vieyra M.D. 01/17/2022 11:14 AM Chest X-Ray 01/18/22 07:42 XR chest 1V portable CLINICAL HISTORY: hypoxia TECHNIQUE: Single frontal radiograph of the chest was obtained. Comparison: Comparison is made to chest 2 views 12/26/2021 FINDINGS: No lines and tubes are seen. Calcified aortic knob is seen. Prominence and cephalization of the vasculature is seen. No evidence of pleural effusion or pneumothorax. IMPRESSION: Mild pulmonary edema. ACT 112: Negative or not required by law. Electronically signed by: Zak Vieyra M.D. 01/18/2022 8:47 AM PG Care Time/CCT Total # of Minutes Spent Total Time Spent with Patient: Total time spent is greater than 50% in coordination of care (as documented) at patient's floor/unit and/or counseling patient: Coding Level of Care Code 19695 Subseq Obs Care Lvl 3 Diagnoses History of total left knee replacement Z96.652 Diabetes E11.9 HTN (hypertension) I10 Glaucoma H40.9 Diabetic neuropathy E11.40 Dyslipidemia E78.5 Obesity (BMI 30-39.9) E66.9 Osteoarthritis M19.90 Vitamin B12 deficiency E53.8 Volume overload E87.70 S/P AAA repair Z98.890; Z86.79
[2022-01-18] MEDS: DOCUSATE SODIUM 100 MG CAP PO SCH ×2 (08:38→21:18)
[2022-01-18] MEDS: DORZOLAMIDE/TIMOLOL 22.3/6.8MG/ML 10 ML BTL OPB SCH ×2 (08:38→21:18)
[2022-01-18] MEDS: MULTIVITAMIN TAB PO SCH (08:38)
[2022-01-18] MEDS: CeleBREX 200 MG CAP PO SCH ×2 (08:38→21:17)
[2022-01-18] MEDS: CHOLECALCIFEROL 1,000 UNITS 25 MCG TAB PO SCH (08:38)
[2022-01-18] MEDS: CYANOCOBALAMIN (B-12) 500 MCG TABLET PO SCH (08:38)
--- NOTE | 2022-01-18 08:49 | XRay Report ---
XR chest 1V portable CLINICAL HISTORY: hypoxia TECHNIQUE: Single frontal radiograph of the chest was obtained. Comparison: Comparison is made to chest 2 views 12/26/2021 FINDINGS: No lines and tubes are seen. Calcified aortic knob is seen. Prominence and cephalization of the vascu lature is seen. No evidence of pleural effusion or pneumothorax. IMPRESSION: Mild pulmonary edema. ACT 112: Negative or not required by law. Electronically signed by: Zak Vieyra M.D. 01/18/2022 8:47 AM
[2022-01-18] MEDS ORDERED: lisinopril 20 MG TAB PO SCH (09:00)
[2022-01-18] MEDS: INSULIN GLARGINE SOLOSTAR 100 UNITS/ML 3 ML PEN SC SCH ×2 (09:29→21:16)
[2022-01-18] MEDS ORDERED: FUROSEMIDE INJ 20 MG/2 ML VIAL IV ONE (10:09)
[2022-01-18] MEDS: ACETAMINOPHEN 500 MG TAB PO PRN (10:29)
--- NOTE | 2022-01-18 11:06 | Progress Notes ---
DATE OF SERVICE: 01/18/2022 Jimi is sitting in his chair. Nurse reports he has been a little bit confused this morning. He is re porting increased discomfort in his knee. He denies any chest pains or shortness of breath. Afebrile with stable vital signs. White count 9, hemoglobin 13, hematocrit 38, platelets are 114. H is PRP is noted. He is moving all extremities and has no facial asymmetry. He has 5-/5 ankle and toe plantarflexion, dorsiflexion, inversion, eversion. He has 1+ palpable pedal pulses with normal sensation. Dressing clean and dry. Minimal swelling. He is alert to person and time, but thinks he is at [facility]. IMPRESSION: 1. Postoperative day #1 status post left total knee arthroplasty. 2. Acute delirium. PLAN: Findings are discussed. I think we should continue admission for the time being and monitor h is overall condition. I think given his surgery and his overall age, a little bit of mental deteriora tion temporarily could be expected. Multiple causes including stress, abnormal environment and pain medication. We will continue to monitor at this point. Continue PT/OT. He will continue his Loveno x for DVT prophylaxis. Job ID: [id number]
[2022-01-18] MEDS: FAMOTIDINE 20 MG TAB PO SCH (11:31)
[2022-01-18] MEDS ORDERED: INSULIN GLARGINE SOLOSTAR 100 UNITS/ML 3 ML PEN SC ONE (12:15)
--- NOTE | 2022-01-18 14:10 | Pharmacy Report ---
Pharmacy Glycemic Short Note 2 - Date of Service January 18, 2022 - Glycemic Short BSG Results (Last 24 hours): 01/17/22 01/17/22 01/17/22 17:02 20:42 23:42 Glucose POC Glucose 126 H 139 H 122 H 01/18/22 01/18/22 01/18/22 03:55 05:49 08:03 Glucose 143 H POC Glucose 128 H 144 H 01/18/22 11:58 Glucose POC Glucose 185 H OUTPATIENT ANTIDIABETIC REGIMEN: * Metformin 1000 mg PO BID * Lantus 40 units SQ QAM, 25 units SQ HS ASSESSMENT: 01/18/22: * POD #1 s/p L TKA * Patient demonstrated excellent glycemic control over the past 24 hours. He received 30 units of SQ insulin during that time. * I anticipate insulin needs will increase moving forward as diet advances. Patient uses significantly more insulin at home. * Will change Lantus to dose per BSG scale and titrate as needed. * Of note, patient is experiencing some acute delirium today and Scr is not at baseline, therefore I will continue to hold metformin. 01/17/22: * 89 y/o M admitted for L TKA today. Patient with history of Type 2 diabetes managed at home on Metformin and basal insulin. * Holding oral Metformin for now until closer to discharge and manage with only basal and bolus insulins. * Patient reportedly took his last Lantus dose (25 units) at home at 19:00 yesterday. * Basal Lantus was not ordered this AM prior to surgery. Lantus resumed at 20 units this evening with dinner. Re-asses dosing tomorrow. * Novolog parameters ordered based on wt and stress between 2 and 3. PLAN FOR INPATIENT GLYCEMIC CONTROL: * Hold outpatient oral diabetes medications * Basal insulin * Lantus 20 units SQ this morning + Lantus 5 units SQ with lunch * Start Lantus 16-20 units SQ BID this evening (20 units for BSG 140 mg/dL or more) * Bolus insulin * NovoLog per scale ACHS or Q6hrs while NPO * Goal Range: Low 110 mg/dL - High 150 mg/dL * Correction Factor: 20 mg/dL/unit * Nutritional / Prandial insulin per carb ratio of 1 unit per 7 grams CHO consumed
[2022-01-18] MEDS ORDERED: MAGNESIUM CITRATE 296 ML/BTL PO ONE (16:05)
[2022-01-18] MEDS: traMADol HCL 50 MG TABLET PO PRN (18:40)
[2022-01-18 19:55] LABS: Adenovirus F 40/41 PCR Not Detected (NotDetected); Astrovirus PCR Not Detected (NotDetected); Campylobacter PCR Not Detected (NotDetected); Clostridium diff Toxin A/B PCR Not Detected (NotDetected); Cryptosporidium PCR Not Detected (NotDetected); Cyclospora cayetanensis PCR Not Detected (NotDetected); Entamoeba histolytica PCR Not Detected (NotDetected); Enteroaggregative E.coli(EAEC) Not Detected (NotDetected); Enteropathogenic E.coli (EPEC) Not Detected (NotDetected); Enterotoxigenic E.coli (ETEC) Not Detected (NotDetected); Giardia lamblia PCR Not Detected (NotDetected); Norovirus GI/GII PCR Not Detected (NotDetected); Plesiomonas shigelloides PCR Not Detected (NotDetected); Rotavirus A PCR Not Detected (NotDetected); Salmonella PCR Not Detected (NotDetected); Sapovirus PCR Not Detected (NotDetected); Shiga-like Toxin E.coli (STEC) Not Detected (NotDetected); Shigella/Enteroinvasive E.coli Not Detected (NotDetected); Vibrio cholerae PCR Not Detected (NotDetected); Vibrio species PCR Not Detected (NotDetected); Yersinia enterocolitica PCR Not Detected (NotDetected)
--- NOTE | 2022-01-18 20:00 | XRay Report ---
KUB CLINICAL HISTORY: Constipation. Nausea. FINDINGS: 2 AP, portable, supine abdominal radiographs are correlated with abdominal CT dated 04/17/20 12. There is a nonobstructed abdominal bowel gas pattern. Cholecystectomy clips are seen in the right upper quadrant. No evidence of intraperitoneal free air is identified on these supine images. No sig nificant fecal retention is identified. There are no abnormal abdominal calcifications. 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 The skeletal structures are osteopenic and appear intact. There is modera te lumbosacral spondylosis. Arthritic change is noted in the hips. The heart is enlarged. Trace right pleural effusion is suspected. IMPRESSION: No acute abnormality is identified. Electronically signed by: Ronni Armenta M.D. 01/18/2022 7:59 PM
[2022-01-18] MEDS: SENNA 8.6 MG TAB PO SCH (21:18)
[2022-01-18] MEDS: SIMVASTATIN 20 MG TAB PO SCH (21:18)
[2022-01-18] MEDS: LATANOPROST 0.005% OP SOLN 2.5 ML BTL OPB SCH (21:19)
[2022-01-19] MEDS: traMADol HCL 50 MG TABLET PO PRN ×2 (01:01→08:57)
[2022-01-19] MEDS: ENOXAPARIN INJ 30 MG/0.3 ML SYR SQ SCH ×2 (06:18→17:48)
[2022-01-19 06:49] LABS: Hematocrit (blood only) 37.4 % (42-52); Hemoglobin 12.6 g/dL (14.0-18.0); Mean Corpuscular Hemoglobin 29.8 pg (25-34); Mean Corpuscular Hgb Conc 33.7 g/dL (32-36); Mean Corpuscular Volume 88.4 fL (80-100); Mean Platelet Volume 10.3 fL (7.4-10.4); Platelet Count 119 K/uL (130-400); RDW Coefficient of Variation 14.1 % (11.5-14.5); RDW Standard Deviation 45.7 fL (36.4-46.3); Red Blood Count 4.23 M/uL (4.7-6.1); White Blood Count 9.55 K/uL (4.8-10.8)
[2022-01-19 07:07] LABS: Albumin Globulin Ratio 1.2 (0.9-2); Albumin Level 3.4 gm/dl (3.4-5.0); BUN Creatinine Ratio 17.8 (10-20); Bilirubin,Total 0.9 mg/dl (0.2-1.0); Calcium 8.6 mg/dl (8.5-10.1); Est GFR (Non-African American) 61.2 ml/min; Globulin 2.9 gm/dl (2.5-4.0); Potassium 4.3 mmol/L (3.5-5.1); Total Protein 6.3 gm/dl (6.0-8.3)
--- NOTE | 2022-01-19 07:32 | XRay Report ---
XR chest 1V portable HISTORY: Hypoxia. Follow-up. COMPARISON: Chest 01/18/2022. FINDINGS: No pneumothorax. No pleural effusions. The heart remains mildly enlarged. There is mild perry tral pulmonary vascular congestion without overt edema. Hazy bibasilar airspace opacities persist. Ca lcifications noted within the aortic knob. IMPRESSION: 1. Cardiomegaly with mild congestive change. 2. Hazy bibasilar densities persist. ACT 112: Negative or not required by law. Electronically signed by: Balwinder Lugo M.D. 01/19/2022 7:30 AM
--- NOTE | 2022-01-19 08:05 | Orthopedic Progress Note ---
Date of Service January 19, 2022 Assessment & Plan (1) History of total left knee replacement: Plan: POD 2 - left TKA Regular diabetic diet. Hospitalist consult for medical management - appreciate assistance with medical management Case management - Authorization pending for [facility]. If bed available, does well in PT/OT and medically stable, orthopedically good for discharge to today. Ice/elevation PRN swelling/pain Pain medication as prescribed. Pain currently well controlled. New dressings applied to left knee today, jonathan stocking applied. Continue Lovenox, teds, and mobilization for dvt prophylaxis. Continue home medications O2 saturation improved. WBAT with assistance of a walker Will discuss findings with Dr. Wick. Patient understands and agrees with plan. Darren Geronimo. Discussed with nursing and he had mag citrate yesterday as well. Admission and Anticipated Discharge Date Admission Date: January 17, 2022 Subjective Patient evaluated this morning. States that he feels much better today, more like himself. He states that he's having some diarrhea, going to the bathroom every "5 minutes". Aware that he's in the hospital, knows it year 2021, knows that it's . Not currently on O2. No fever, chills, chest pain, shortness of breath, abd pain, nausea, vomiting or dysuria at this time. Physical Exam Musculoskeletal: left knee incision clean, dry and intact. Dressings removed, no effusion left knee, no prepatellar effusion, new dressings applied. No calf tenderness with palpation. Able to do ankle pumps left ankle. Strength 5/5. Distal pulses 1+. Minimal distal edema. Able to lift his leg about an inch off the bed independently today. Tolerates full ROM of left hip. Results & Data ([facility]) Vital Signs (Past 12 Hours) Vital Signs Temp Pulse Pulse Resp BP Pulse Ox 01/19/22 07:46 36.6 C 76 16 140/70 92 01/18/22 23:18 116/64 01/18/22 22:20 36.6 C 87 16 97/52 L 90 Laboratory Results 01/19/22 01/19/22 01/19/22 Range/Units 07:53 06:31 06:31 WBC (4.8-10.8) K/uL RBC (4.7-6.1) M/uL Hgb (14.0-18.0) g/dL Hct (42-52) % MCV (80-100) fL MCH (25-34) pg MCHC (32-36) g/dL RDW Std Deviation (36.4-46.3) fL RDW Coeff of Mya (11.5-14.5) % Plt Count (130-400) K/uL MPV (7.4-10.4) fL Sodium (136-145) mmol/L Potassium (3.5-5.1) mmol/L Chloride (98-107) mmol/L Carbon Dioxide (21-32) mmol/L Anion Gap (3-11) BUN (6-23) mg/dl Creatinine (0.6-1.4) mg/dl Est Cr Clr Drug Dosing ml/min Est GFR ( Amer) ml/min Est GFR (Non-Af Amer) ml/min BUN/Creatinine Ratio (10-20) Glucose (70-99(Fasting)) mg/dl POC Glucose 169 H (70-99) mg/dl Calcium (8.5-10.1) mg/dl Total Bilirubin (0.2-1.0) mg/dl AST (13-39) U/L ALT (7-52) U/L Alkaline Phosphatase (34-104) U/L Total Protein (6.0-8.3) gm/dl Albumin (3.4-5.0) gm/dl Globulin (2.5-4.0) gm/dl Albumin/Globulin Ratio (0.9-2) Vitamin B12 709 (180-914) pg/ml TSH 2.567 (0.300-4.500) uIu/ml Stl C. cayetanensis PCR (NotDetected) Stool Rotavirus A PCR (NotDetected) Stl Adenov F 40/41 PCR (NotDetected) Stool Astrovirus (PCR) (NotDetected) Stool Campylobacter PCR (NotDetected) Stl C. diff Tox A/B PCR (NotDetected) Stool Cryptosporidium PCR (NotDetected) Stl E.coli Shiga Tox PCR (NotDetected) Stl Enterotoxigenic E PCR (NotDetected) Stool EPEC (PCR) (NotDetected) Stool EAEC (PCR) (NotDetected) Stl E. histolytica PCR (NotDetected) Stool Giardia Lamblia PCR (NotDetected) Stool Salmonella PCR (NotDetected) Stool Sapovirus (PCR) (NotDetected) Stl P. shigelloides PCR (NotDetected) Stl Shigella/EIEC PCR (NotDetected) St Y.enterocolitica PCR (NotDetected) Stool Vibrio (PCR) (NotDetected) Stl Vibrio cholerae PCR (NotDetected) Stl Norovirus GI/GII PCR (NotDetected) 01/19/22 01/19/22 01/18/22 Range/Units 06:31 06:31 20:42 WBC 9.55 (4.8-10.8) K/uL RBC 4.23 L (4.7-6.1) M/uL Hgb 12.6 L (14.0-18.0) g/dL Hct 37.4 L (42-52) % MCV 88.4 (80-100) fL MCH 29.8 (25-34) pg MCHC 33.7 (32-36) g/dL RDW Std Deviation 45.7 (36.4-46.3) fL RDW Coeff of Mya 14.1 (11.5-14.5) % Plt Count 119 L (130-400) K/uL MPV 10.3 (7.4-10.4) fL Sodium 136 (136-145) mmol/L Potassium 4.3 (3.5-5.1) mmol/L Chloride 102 (98-107) mmol/L Carbon Dioxide 27 (21-32) mmol/L Anion Gap 7 (3-11) BUN 19 (6-23) mg/dl Creatinine 1.07 D (0.6-1.4) mg/dl Est Cr Clr Drug Dosing 56.0 ml/min Est GFR ( Amer) 71.0 ml/min Est GFR (Non-Af Amer) 61.2 ml/min BUN/Creatinine Ratio 17.8 (10-20) Glucose 173 H (70-99(Fasting)) mg/dl POC Glucose 208 H (70-99) mg/dl Calcium 8.6 (8.5-10.1) mg/dl Total Bilirubin 0.9 (0.2-1.0) mg/dl AST 25 (13-39) U/L ALT 14 (7-52) U/L Alkaline Phosphatase 44 (34-104) U/L Total Protein 6.3 (6.0-8.3) gm/dl Albumin 3.4 (3.4-5.0) gm/dl Globulin 2.9 (2.5-4.0) gm/dl Albumin/Globulin Ratio 1.2 (0.9-2) Vitamin B12 (180-914) pg/ml TSH (0.300-4.500) uIu/ml Stl C. cayetanensis PCR (NotDetected) Stool Rotavirus A PCR (NotDetected) Stl Adenov F 40/41 PCR (NotDetected) Stool Astrovirus (PCR) (NotDetected) Stool Campylobacter PCR (NotDetected) Stl C. diff Tox A/B PCR (NotDetected) Stool Cryptosporidium PCR (NotDetected) Stl E.coli Shiga Tox PCR (NotDetected) Stl Enterotoxigenic E PCR (NotDetected) Stool EPEC (PCR) (NotDetected) Stool EAEC (PCR) (NotDetected) Stl E. histolytica PCR (NotDetected) Stool Giardia Lamblia PCR (NotDetected) Stool Salmonella PCR (NotDetected) Stool Sapovirus (PCR) (NotDetected) Stl P. shigelloides PCR (NotDetected) Stl Shigella/EIEC PCR (NotDetected) St Y.enterocolitica PCR (NotDetected) Stool Vibrio (PCR) (NotDetected) Stl Vibrio cholerae PCR (NotDetected) Stl Norovirus GI/GII PCR (NotDetected) 01/18/22 01/18/22 01/18/22 Range/Units 18:30 16:48 11:58 WBC (4.8-10.8) K/uL RBC (4.7-6.1) M/uL Hgb (14.0-18.0) g/dL Hct (42-52) % MCV (80-100) fL MCH (25-34) pg MCHC (32-36) g/dL RDW Std Deviation (36.4-46.3) fL RDW Coeff of Mya (11.5-14.5) % Plt Count (130-400) K/uL MPV (7.4-10.4) fL Sodium (136-145) mmol/L Potassium (3.5-5.1) mmol/L Chloride (98-107) mmol/L Carbon Dioxide (21-32) mmol/L Anion Gap (3-11) BUN (6-23) mg/dl Creatinine (0.6-1.4) mg/dl Est Cr Clr Drug Dosing ml/min Est GFR ( Amer) ml/min Est GFR (Non-Af Amer) ml/min BUN/Creatinine Ratio (10-20) Glucose (70-99(Fasting)) mg/dl POC Glucose 212 H 185 H (70-99) mg/dl Calcium (8.5-10.1) mg/dl Total Bilirubin (0.2-1.0) mg/dl AST (13-39) U/L ALT (7-52) U/L Alkaline Phosphatase (34-104) U/L Total Protein (6.0-8.3) gm/dl Albumin (3.4-5.0) gm/dl Globulin (2.5-4.0) gm/dl Albumin/Globulin Ratio (0.9-2) Vitamin B12 (180-914) pg/ml TSH (0.300-4.500) uIu/ml Stl C. cayetanensis PCR Not Detected (NotDetected) Stool Rotavirus A PCR Not Detected (NotDetected) Stl Adenov F 40/41 PCR Not Detected (NotDetected) Stool Astrovirus (PCR) Not Detected (NotDetected) Stool Campylobacter PCR Not Detected (NotDetected) Stl C. diff Tox A/B PCR Not Detected (NotDetected) Stool Cryptosporidium PCR Not Detected (NotDetected) Stl E.coli Shiga Tox PCR Not Detected (NotDetected) Stl Enterotoxigenic E PCR Not Detected (NotDetected) Stool EPEC (PCR) Not Detected (NotDetected) Stool EAEC (PCR) Not Detected (NotDetected) Stl E. histolytica PCR Not Detected (NotDetected) Stool Giardia Lamblia PCR Not Detected (NotDetected) Stool Salmonella PCR Not Detected (NotDetected) Stool Sapovirus (PCR) Not Detected (NotDetected) Stl P. shigelloides PCR Not Detected (NotDetected) Stl Shigella/EIEC PCR Not Detected (NotDetected) St Y.enterocolitica PCR Not Detected (NotDetected) Stool Vibrio (PCR) Not Detected (NotDetected) Stl Vibrio cholerae PCR Not Detected (NotDetected) Stl Norovirus GI/GII PCR Not Detected (NotDetected) 01/18/22 Range/Units 08:03 WBC (4.8-10.8) K/uL RBC (4.7-6.1) M/uL Hgb (14.0-18.0) g/dL Hct (42-52) % MCV (80-100) fL MCH (25-34) pg MCHC (32-36) g/dL RDW Std Deviation (36.4-46.3) fL RDW Coeff of Mya (11.5-14.5) % Plt Count (130-400) K/uL MPV (7.4-10.4) fL Sodium (136-145) mmol/L Potassium (3.5-5.1) mmol/L Chloride (98-107) mmol/L Carbon Dioxide (21-32) mmol/L Anion Gap (3-11) BUN (6-23) mg/dl Creatinine (0.6-1.4) mg/dl Est Cr Clr Drug Dosing ml/min Est GFR ( Amer) ml/min Est GFR (Non-Af Amer) ml/min BUN/Creatinine Ratio (10-20) Glucose (70-99(Fasting)) mg/dl POC Glucose 144 H (70-99) mg/dl Calcium (8.5-10.1) mg/dl Total Bilirubin (0.2-1.0) mg/dl AST (13-39) U/L ALT (7-52) U/L Alkaline Phosphatase (34-104) U/L Total Protein (6.0-8.3) gm/dl Albumin (3.4-5.0) gm/dl Globulin (2.5-4.0) gm/dl Albumin/Globulin Ratio (0.9-2) Vitamin B12 (180-914) pg/ml TSH (0.300-4.500) uIu/ml Stl C. cayetanensis PCR (NotDetected) Stool Rotavirus A PCR (NotDetected) Stl Adenov F 40/41 PCR (NotDetected) Stool Astrovirus (PCR) (NotDetected) Stool Campylobacter PCR (NotDetected) Stl C. diff Tox A/B PCR (NotDetected) Stool Cryptosporidium PCR (NotDetected) Stl E.coli Shiga Tox PCR (NotDetected) Stl Enterotoxigenic E PCR (NotDetected) Stool EPEC (PCR) (NotDetected) Stool EAEC (PCR) (NotDetected) Stl E. histolytica PCR (NotDetected) Stool Giardia Lamblia PCR (NotDetected) Stool Salmonella PCR (NotDetected) Stool Sapovirus (PCR) (NotDetected) Stl P. shigelloides PCR (NotDetected) Stl Shigella/EIEC PCR (NotDetected) St Y.enterocolitica PCR (NotDetected) Stool Vibrio (PCR) (NotDetected) Stl Vibrio cholerae PCR (NotDetected) Stl Norovirus GI/GII PCR (NotDetected)
[2022-01-19] MEDS ORDERED: FUROSEMIDE INJ 20 MG/2 ML VIAL IV ONE (08:14)
--- NOTE | 2022-01-19 08:18 | Hospitalist Progress Note ---
Date of Service January 19, 2022 Assessment & Plan (1) History of total left knee replacement: Plan: POD#2 s/p left TKA on 01/17 Postoperative care as per orthopedic surgery Pain control, bowel regimen, antiemetics as needed -- avoid oxycodone, use tramadol recommended WBC wnl, afebrile Volume overload on 01/18 * Titrated to room air with Lasix x 1 on 01/18 and still some congestion but much improved on room air and will give just one additional dose Multiple BMs (stool cx obtained given reported chronic issue) -- NEGATIVE/ He was fixated on bowels 01/18 and mag citrate, enema, and scheduled docusate/senna * --> Discussed likely gastroparesis and would like him to try to eat smaller/more frequent meals and can have outpt f/u with GI per PCP Hgb stable on repeat Continue pepcid for GI proph while inpatient Medically stable for d/c however ortho would like to stay overnight to monitor diarrhea and hopefully can d/c to [facility] tomorrow Medicine will sign off at this time but will chart check in AM. Please call with questions/concerns. (2) Volume overload: Plan: Patient without hx CHF, no murmur on examination Lasix x 1 and repeated --> on room air. No sob/CP reported Continue incentive spirometer to prevent atelecatasis Of note, patient did have PCP visit earlier this month with reported intermittent n/v. ?if does have degree of CHF vs gastroparesis as vomiting occurred shortly after eating per PCP note (3) Diabetes: Plan: Last hemoglobin A1c well controlled at 7.4% last month ordered Lantus but changed to 30 units twice daily (home dosing 40 units in the morning 25 at night) Added NovoLog supplemental insulin with meals and at bedtime Diabetic diet Hold home Metformin The orthopedic service has consulted pharmacy for management (4) HTN (hypertension): Plan: Blood pressures normal clonidine d/c'd per ortho as ordered on admission lasix 20mg IV 01/18, repeat 01/19 Cr returned to normal 1.07 Scheduled to resume lisinopril for AM (5) Glaucoma: Plan: Continue home eyedrops (6) Diabetic neuropathy: Plan: Not on medication for this Will also check b12 given confusion but suspect from medications/delirium (also checking TSH) --> B12, TSH wnl (7) Dyslipidemia: Plan: Continue simvastatin (8) Obesity (BMI 30-39.9): Plan: BMI 32.3 Needs weight loss (9) Osteoarthritis: Plan: Now requiring knee replacement as above On Celebrex inpatient (10) Vitamin B12 deficiency: Plan: Continue home B12 supplement (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 BP control as above, heart healthy diet Plan: DVT prophylaxis-SCDs, Lovenox Disposition-continued stay due to diarrhea overnight per primary but plan to d/c to [facility] tomorrow Hospitalist service will chart check. Please call with any questions/concerns Admission and Anticipated Discharge Date Admission Date: January 17, 2022 Subjective Patient evaluated this afternoon. Feeling better. Had diarrhea, now slowing. had been "every five minutes" and states it's been at least an hour an a half. no blood discussed possible gastroparesis as indicated by Aileen at last visit with PCP. He does endorse fullness/bloating occurs mainly after he has large meals and takes carlos seltzer and vomits. Discussed smaller more frequent meals to prevent issues and consider reglan if needed for nausea. No fever, chills, chest pain, cough, shortness of breath, difficulty laying flat, No issues with confusion however he states they thought he was confused/trying to get out of bed overnight but he was just trying to untangle his gown/IV line and getting comfortable in bed. Hopeful for d/c to [facility] tomorrow. Review of Systems Review of Systems: All systems reviewed & are unremarkable except as noted in HPI & below Physical Exam Physical Exam: General: WN/WD male sitting up in chair, NAD, HEENT: eyes anicteric EOMI intact, mmm,trachea midline without deviation Resp: CTAB, diminished in the bases, on room air CV: RRR, no m/r/g, expected edema to LLE from surgery, calves supple and non- tender, pulses palpable GI: +BS throughout, soft, non-tender : no dangelo MSK/Neuro: CN intact grossly, LLE with lili wrap (not removed), edema, NVI, pulses palpable, no slurred speech, facial droop, or focal deficit noted Skin: warm , dry Psych: AOx3, pleasant and cooperative Results & Data Results & Data ([facility]) Vital Signs (Past 12 Hours) Vital Signs Temp Pulse Pulse Resp BP Pulse Ox 01/19/22 07:46 36.6 C 76 16 140/70 92 01/18/22 23:18 116/64 01/18/22 22:20 36.6 C 87 16 97/52 L 90 Laboratory Results 01/19/22 01/19/22 01/19/22 Range/Units 07:53 06:31 06:31 WBC (4.8-10.8) K/uL RBC (4.7-6.1) M/uL Hgb (14.0-18.0) g/dL Hct (42-52) % MCV (80-100) fL MCH (25-34) pg MCHC (32-36) g/dL RDW Std Deviation (36.4-46.3) fL RDW Coeff of Mya (11.5-14.5) % Plt Count (130-400) K/uL MPV (7.4-10.4) fL Sodium (136-145) mmol/L Potassium (3.5-5.1) mmol/L Chloride (98-107) mmol/L Carbon Dioxide (21-32) mmol/L Anion Gap (3-11) BUN (6-23) mg/dl Creatinine (0.6-1.4) mg/dl Est Cr Clr Drug Dosing ml/min Est GFR ( Amer) ml/min Est GFR (Non-Af Amer) ml/min BUN/Creatinine Ratio (10-20) Glucose (70-99(Fasting)) mg/dl POC Glucose 169 H (70-99) mg/dl Calcium (8.5-10.1) mg/dl Total Bilirubin (0.2-1.0) mg/dl AST (13-39) U/L ALT (7-52) U/L Alkaline Phosphatase (34-104) U/L Total Protein (6.0-8.3) gm/dl Albumin (3.4-5.0) gm/dl Globulin (2.5-4.0) gm/dl Albumin/Globulin Ratio (0.9-2) Vitamin B12 709 (180-914) pg/ml TSH 2.567 (0.300-4.500) uIu/ml Stl C. cayetanensis PCR (NotDetected) Stool Rotavirus A PCR (NotDetected) Stl Adenov F 40/41 PCR (NotDetected) Stool Astrovirus (PCR) (NotDetected) Stool Campylobacter PCR (NotDetected) Stl C. diff Tox A/B PCR (NotDetected) Stool Cryptosporidium PCR (NotDetected) Stl E.coli Shiga Tox PCR (NotDetected) Stl Enterotoxigenic E PCR (NotDetected) Stool EPEC (PCR) (NotDetected) Stool EAEC (PCR) (NotDetected) Stl E. histolytica PCR (NotDetected) Stool Giardia Lamblia PCR (NotDetected) Stool Salmonella PCR (NotDetected) Stool Sapovirus (PCR) (NotDetected) Stl P. shigelloides PCR (NotDetected) Stl Shigella/EIEC PCR (NotDetected) St Y.enterocolitica PCR (NotDetected) Stool Vibrio (PCR) (NotDetected) Stl Vibrio cholerae PCR (NotDetected) Stl Norovirus GI/GII PCR (NotDetected) 01/19/22 01/19/22 01/18/22 Range/Units 06:31 06:31 20:42 WBC 9.55 (4.8-10.8) K/uL RBC 4.23 L (4.7-6.1) M/uL Hgb 12.6 L (14.0-18.0) g/dL Hct 37.4 L (42-52) % MCV 88.4 (80-100) fL MCH 29.8 (25-34) pg MCHC 33.7 (32-36) g/dL RDW Std Deviation 45.7 (36.4-46.3) fL RDW Coeff of Mya 14.1 (11.5-14.5) % Plt Count 119 L (130-400) K/uL MPV 10.3 (7.4-10.4) fL Sodium 136 (136-145) mmol/L Potassium 4.3 (3.5-5.1) mmol/L Chloride 102 (98-107) mmol/L Carbon Dioxide 27 (21-32) mmol/L Anion Gap 7 (3-11) BUN 19 (6-23) mg/dl Creatinine 1.07 D (0.6-1.4) mg/dl Est Cr Clr Drug Dosing 56.0 ml/min Est GFR ( Amer) 71.0 ml/min Est GFR (Non-Af Amer) 61.2 ml/min BUN/Creatinine Ratio 17.8 (10-20) Glucose 173 H (70-99(Fasting)) mg/dl POC Glucose 208 H (70-99) mg/dl Calcium 8.6 (8.5-10.1) mg/dl Total Bilirubin 0.9 (0.2-1.0) mg/dl AST 25 (13-39) U/L ALT 14 (7-52) U/L Alkaline Phosphatase 44 (34-104) U/L Total Protein 6.3 (6.0-8.3) gm/dl Albumin 3.4 (3.4-5.0) gm/dl Globulin 2.9 (2.5-4.0) gm/dl Albumin/Globulin Ratio 1.2 (0.9-2) Vitamin B12 (180-914) pg/ml TSH (0.300-4.500) uIu/ml Stl C. cayetanensis PCR (NotDetected) Stool Rotavirus A PCR (NotDetected) Stl Adenov F 40/41 PCR (NotDetected) Stool Astrovirus (PCR) (NotDetected) Stool Campylobacter PCR (NotDetected) Stl C. diff Tox A/B PCR (NotDetected) Stool Cryptosporidium PCR (NotDetected) Stl E.coli Shiga Tox PCR (NotDetected) Stl Enterotoxigenic E PCR (NotDetected) Stool EPEC (PCR) (NotDetected) Stool EAEC (PCR) (NotDetected) Stl E. histolytica PCR (NotDetected) Stool Giardia Lamblia PCR (NotDetected) Stool Salmonella PCR (NotDetected) Stool Sapovirus (PCR) (NotDetected) Stl P. shigelloides PCR (NotDetected) Stl Shigella/EIEC PCR (NotDetected) St Y.enterocolitica PCR (NotDetected) Stool Vibrio (PCR) (NotDetected) Stl Vibrio cholerae PCR (NotDetected) Stl Norovirus GI/GII PCR (NotDetected) 01/18/22 01/18/22 01/18/22 Range/Units 18:30 16:48 11:58 WBC (4.8-10.8) K/uL RBC (4.7-6.1) M/uL Hgb (14.0-18.0) g/dL Hct (42-52) % MCV (80-100) fL MCH (25-34) pg MCHC (32-36) g/dL RDW Std Deviation (36.4-46.3) fL RDW Coeff of Mya (11.5-14.5) % Plt Count (130-400) K/uL MPV (7.4-10.4) fL Sodium (136-145) mmol/L Potassium (3.5-5.1) mmol/L Chloride (98-107) mmol/L Carbon Dioxide (21-32) mmol/L Anion Gap (3-11) BUN (6-23) mg/dl Creatinine (0.6-1.4) mg/dl Est Cr Clr Drug Dosing ml/min Est GFR ( Amer) ml/min Est GFR (Non-Af Amer) ml/min BUN/Creatinine Ratio (10-20) Glucose (70-99(Fasting)) mg/dl POC Glucose 212 H 185 H (70-99) mg/dl Calcium (8.5-10.1) mg/dl Total Bilirubin (0.2-1.0) mg/dl AST (13-39) U/L ALT (7-52) U/L Alkaline Phosphatase (34-104) U/L Total Protein (6.0-8.3) gm/dl Albumin (3.4-5.0) gm/dl Globulin (2.5-4.0) gm/dl Albumin/Globulin Ratio (0.9-2) Vitamin B12 (180-914) pg/ml TSH (0.300-4.500) uIu/ml Stl C. cayetanensis PCR Not Detected (NotDetected) Stool Rotavirus A PCR Not Detected (NotDetected) Stl Adenov F 40/41 PCR Not Detected (NotDetected) Stool Astrovirus (PCR) Not Detected (NotDetected) Stool Campylobacter PCR Not Detected (NotDetected) Stl C. diff Tox A/B PCR Not Detected (NotDetected) Stool Cryptosporidium PCR Not Detected (NotDetected) Stl E.coli Shiga Tox PCR Not Detected (NotDetected) Stl Enterotoxigenic E PCR Not Detected (NotDetected) Stool EPEC (PCR) Not Detected (NotDetected) Stool EAEC (PCR) Not Detected (NotDetected) Stl E. histolytica PCR Not Detected (NotDetected) Stool Giardia Lamblia PCR Not Detected (NotDetected) Stool Salmonella PCR Not Detected (NotDetected) Stool Sapovirus (PCR) Not Detected (NotDetected) Stl P. shigelloides PCR Not Detected (NotDetected) Stl Shigella/EIEC PCR Not Detected (NotDetected) St Y.enterocolitica PCR Not Detected (NotDetected) Stool Vibrio (PCR) Not Detected (NotDetected) Stl Vibrio cholerae PCR Not Detected (NotDetected) Stl Norovirus GI/GII PCR Not Detected (NotDetected) Diagnostic Findings Chest X-Ray 01/18/22 07:42 XR chest 1V portable CLINICAL HISTORY: hypoxia TECHNIQUE: Single frontal radiograph of the chest was obtained. Comparison: Comparison is made to chest 2 views 12/26/2021 FINDINGS: No lines and tubes are seen. Calcified aortic knob is seen. Prominence and cephalization of the vasculature is seen. No evidence of pleural effusion or pneumothorax. IMPRESSION: Mild pulmonary edema. ACT 112: Negative or not required by law. Electronically signed by: Zak Vieyra M.D. 01/18/2022 8:47 AM KUB X-Ray 01/18/22 16:41 KUB CLINICAL HISTORY: Constipation. Nausea. FINDINGS: 2 AP, portable, supine abdominal radiographs are correlated with abdominal CT dated 04/17/2012. There is a nonobstructed abdominal bowel gas pattern. Cholecystectomy clips are seen in the right upper quadrant. No evidence of intraperitoneal free air is identified on these supine images. No significant fecal retention is identified. There are no abnormal abdominal calcifications. 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 The skeletal structures are osteopenic and appear intact. There is moderate lumbosacral spondylosis. Arthritic change is noted in the hips. The heart is enlarged. Trace right pleural effusion is suspected. IMPRESSION: No acute abnormality is identified. Electronically signed by: Ronni Armenta M.D. 01/18/2022 7:59 PM Chest X-Ray 01/19/22 06:29 XR chest 1V portable HISTORY: Hypoxia. Follow-up. COMPARISON: Chest 01/18/2022. FINDINGS: No pneumothorax. No pleural effusions. The heart remains mildly enlarged. There is mild central pulmonary vascular congestion without overt edema. Hazy bibasilar airspace opacities persist. Calcifications noted within the aortic knob. IMPRESSION: 1. Cardiomegaly with mild congestive change. 2. Hazy bibasilar densities persist. ACT 112: Negative or not required by law. Electronically signed by: Balwinder Lugo M.D. 01/19/2022 7:30 AM PG Care Time/CCT Total # of Minutes Spent Total Time Spent with Patient: Total time spent is greater than 50% in coordination of care (as documented) at patient's floor/unit and/or counseling patient: Coding Level of Care Code 51204 Subseq Obs Care Lvl 2 Diagnoses History of total left knee replacement Z96.652 Volume overload E87.70 Diabetes E11.9 HTN (hypertension) I10 Glaucoma H40.9 Diabetic neuropathy E11.40 Dyslipidemia E78.5 Obesity (BMI 30-39.9) E66.9 Osteoarthritis M19.90 Vitamin B12 deficiency E53.8 S/P AAA repair Z98.890; Z86.79
[2022-01-19] MEDS: INSULIN ASPART PER UNIT SC SCH ×4 (08:55→20:56)
[2022-01-19] MEDS: INSULIN GLARGINE SOLOSTAR 100 UNITS/ML 3 ML PEN SC SCH ×2 (08:56→20:52)
[2022-01-19] MEDS: CeleBREX 200 MG CAP PO SCH ×2 (08:58→20:53)
[2022-01-19] MEDS: CYANOCOBALAMIN (B-12) 500 MCG TABLET PO SCH (08:59)
[2022-01-19] MEDS: CHOLECALCIFEROL 1,000 UNITS 25 MCG TAB PO SCH (08:59)
[2022-01-19] MEDS: MULTIVITAMIN TAB PO SCH (08:59)
[2022-01-19] MEDS: FAMOTIDINE 20 MG TAB PO SCH (08:59)
[2022-01-19] MEDS: DORZOLAMIDE/TIMOLOL 22.3/6.8MG/ML 10 ML BTL OPB SCH ×2 (09:00→20:51)
--- NOTE | 2022-01-19 12:31 | Pharmacy Report ---
Pharmacy Glycemic Short Note 2 - Date of Service January 19, 2022 - Glycemic Short BSG Results (Last 24 hours): 01/18/22 01/18/22 01/19/22 16:48 20:42 06:31 Glucose 173 H POC Glucose 212 H 208 H 01/19/22 01/19/22 07:53 12:17 Glucose POC Glucose 169 H 173 H OUTPATIENT ANTIDIABETIC REGIMEN: * Metformin 1000 mg PO BID * Lantus 40 units SQ QAM, 25 units SQ HS ASSESSMENT: 01/19/22: * POD #2 s/p L TKA. Planning possible discharge to [facility]. * Fasting BSG elevated (169 mg/dL). Continue to titrate Lantus dosing. Patient received a total of 45 units of Lantus yesterday compared to 65 units at home. * Post prandial BSGs were elevated yesterday. Carb coverage has been tightened. * Patient is on metformin at home. Scr is now at baseline and patient is tolerated oral diet. Will resume at this time. 01/18/22: * POD #1 s/p L TKA * Patient demonstrated excellent glycemic control over the past 24 hours. He received 30 units of SQ insulin during that time. * I anticipate insulin needs will increase moving forward as diet advances. Patient uses significantly more insulin at home. * Will change Lantus to dose per BSG scale and titrate as needed. * Of note, patient is experiencing some acute delirium today and Scr is not at baseline, therefore I will continue to hold metformin. 01/17/22: * 89 y/o M admitted for L TKA today. Patient with history of Type 2 diabetes managed at home on Metformin and basal insulin. * Holding oral Metformin for now until closer to discharge and manage with only basal and bolus insulins. * Patient reportedly took his last Lantus dose (25 units) at home at 19:00 yesterday. * Basal Lantus was not ordered this AM prior to surgery. Lantus resumed at 20 units this evening with dinner. Re-asses dosing tomorrow. * Novolog parameters ordered based on wt and stress between 2 and 3. PLAN FOR INPATIENT GLYCEMIC CONTROL: * Resume metformin 1000 mg PO BID * Basal insulin * Lantus 25-30 units SQ BID * Bolus insulin * NovoLog per scale ACHS or Q6hrs while NPO * Goal Range: Low 110 mg/dL - High 150 mg/dL * Correction Factor: 20 mg/dL/unit * Nutritional / Prandial insulin per carb ratio of 1 unit per 6 grams CHO consumed
[2022-01-19] MEDS: metFORMIN HCL 500 MG TAB PO SCH (17:48)
[2022-01-19] MEDS: LATANOPROST 0.005% OP SOLN 2.5 ML BTL OPB SCH (20:52)
[2022-01-19] MEDS: SIMVASTATIN 20 MG TAB PO SCH (20:53)
[2022-01-20 07:01] LABS: Hematocrit (blood only) 36.8 % (42-52); Hemoglobin 12.4 g/dL (14.0-18.0); Mean Corpuscular Hgb Conc 33.7 g/dL (32-36); Mean Corpuscular Volume 88.9 fL (80-100); Mean Platelet Volume 10.8 fL (7.4-10.4); Platelet Count 144 K/uL (130-400); RDW Coefficient of Variation 14.2 % (11.5-14.5); RDW Standard Deviation 46.2 fL (36.4-46.3); Red Blood Count 4.14 M/uL (4.7-6.1); White Blood Count 9.07 K/uL (4.8-10.8)
[2022-01-20 07:16] LABS: BUN Creatinine Ratio 16.9 (10-20); Calcium 8.7 mg/dl (8.5-10.1); Creatinine Clr Calc Pharmacy 67.3 ml/min; Est GFR (African American) 87.9 ml/min; Est GFR (Non-African American) 75.8 ml/min; Magnesium 1.7 mg/dl (1.7-2.4); Potassium 4.1 mmol/L (3.5-5.1)
[2022-01-20] MEDS: ENOXAPARIN INJ 30 MG/0.3 ML SYR SQ SCH (07:42)
[2022-01-20] MEDS: CeleBREX 200 MG CAP PO SCH (07:51)
[2022-01-20] MEDS: CHOLECALCIFEROL 1,000 UNITS 25 MCG TAB PO SCH (08:38)
[2022-01-20] MEDS: metFORMIN HCL 500 MG TAB PO SCH (08:38)
[2022-01-20] MEDS: CYANOCOBALAMIN (B-12) 500 MCG TABLET PO SCH (08:39)
[2022-01-20] MEDS: DORZOLAMIDE/TIMOLOL 22.3/6.8MG/ML 10 ML BTL OPB SCH (08:40)
[2022-01-20] MEDS: FAMOTIDINE 20 MG TAB PO SCH (08:41)
[2022-01-20] MEDS: MULTIVITAMIN TAB PO SCH (08:42)
[2022-01-20] MEDS ORDERED: lisinopril 20 MG TAB PO SCH (09:00)
[2022-01-20] MEDS: INSULIN ASPART PER UNIT SC SCH ×2 (09:09→12:04)
[2022-01-20] MEDS: INSULIN GLARGINE SOLOSTAR 100 UNITS/ML 3 ML PEN SC SCH (09:12)
--- NOTE | 2022-01-20 11:23 | Orthopedic Progress Note ---
Date of Service January 20, 2022 Assessment & Plan (1) History of total left knee replacement: Plan: POD 3 - left TKA Regular diabetic diet. Hospitalist consult for medical management - appreciate assistance with medical management Case management - Authorization pending for [facility]. If bed available, does well in PT/OT and medically stable, orthopedically good for discharge to today. Ice/elevation PRN swelling/pain Pain medication as prescribed. Pain currently well controlled. New dressings applied to left knee today, jonathan stocking applied. Continue Lovenox, teds, and mobilization for dvt prophylaxis. Continue home medications O2 saturation improved. WBAT with assistance of a walker Will discuss findings with Dr. Wick. Patient understands and agrees with plan. Darren Geronimo. Admission and Anticipated Discharge Date Admission Date: January 17, 2022 Subjective This 89-year-old male is 3 days status post left total knee arthroplasty. He states that he is doing very well today. He is anticipating being discharged to [facility] for rehab hopefully today. He states that over the past few days he did have persistent diarrhea which is resolved. He denies chest pain, shortness of breath, fever, chills, sweats, lethargy, numbness or tingling in his left lower extremity. He also denies nausea vomiting or constipation. He states that he has been able to void without difficulty. Review of Systems Review of Systems: All systems reviewed & are unremarkable except as noted in Subjective Physical Exam Physical Exam: Left knee: Dressings were removed and fresh dressings were reapplied. Patient judd are intact. There is no fluctuance or drainage. He is able to reach 0 degrees of extension and 80 degrees of flexion actively. He has difficulty performing active straight leg raise test but is able to actively dorsi and plantarflex his foot. There is some mild edema and ecchymosis but no erythema, warmth or palpable deformity. There is no clunking with light varus valgus stressing. Patient is neurovascularly intact in left lower extremity. Results & Data ([facility]) Vital Signs (Past 12 Hours) Vital Signs Temp Pulse Resp BP BP Pulse Ox 01/20/22 08:32 132/74 01/20/22 07:15 36.5 C 88 16 140/80 94 Diagnostic Findings Laboratory Results WBC 9.07 K/uL (4.8-10.8) 01/20/22 06:10 RBC 4.14 M/uL (4.7-6.1) L 01/20/22 06:10 Hgb 12.4 g/dL (14.0-18.0) L 01/20/22 06:10 Hct 36.8 % (42-52) L 01/20/22 06:10 MCV 88.9 fL (80-100) 01/20/22 06:10 MCH 30.0 pg (25-34) 01/20/22 06:10 MCHC 33.7 g/dL (32-36) 01/20/22 06:10 RDW Std Deviation 46.2 fL (36.4-46.3) 01/20/22 06:10 RDW Coeff of Mya 14.2 % (11.5-14.5) 01/20/22 06:10 Plt Count 144 K/uL (130-400) 01/20/22 06:10 MPV 10.8 fL (7.4-10.4) H 01/20/22 06:10 Sodium 136 mmol/L (136-145) 01/20/22 06:10 Potassium 4.1 mmol/L (3.5-5.1) 01/20/22 06:10 Chloride 102 mmol/L (98-107) 01/20/22 06:10 Carbon Dioxide 26 mmol/L (21-32) 01/20/22 06:10 Anion Gap 8 (3-11) 01/20/22 06:10 BUN 15 mg/dl (6-23) 01/20/22 06:10 Creatinine 0.89 mg/dl (0.6-1.4) 01/20/22 06:10 Est Cr Clr Drug Dosing 67.3 ml/min 01/20/22 06:10 Est GFR ( Amer) 87.9 ml/min 01/20/22 06:10 Est GFR (Non-Af Amer) 75.8 ml/min 01/20/22 06:10 BUN/Creatinine Ratio 16.9 (10-20) 01/20/22 06:10 Glucose 150 mg/dl (70-99(Fasting)) H 01/20/22 06:10 POC Glucose 164 mg/dl (70-99) H 01/20/22 08:03 Calcium 8.7 mg/dl (8.5-10.1) 01/20/22 06:10 Magnesium 1.7 mg/dl (1.7-2.4) 01/20/22 06:10 Total Bilirubin 0.9 mg/dl (0.2-1.0) 01/19/22 06:31 AST 25 U/L (13-39) 01/19/22 06:31 ALT 14 U/L (7-52) 01/19/22 06:31 Alkaline Phosphatase 44 U/L (34-104) 01/19/22 06:31 Total Protein 6.3 gm/dl (6.0-8.3) 01/19/22 06:31 Albumin 3.4 gm/dl (3.4-5.0) 01/19/22 06:31 Globulin 2.9 gm/dl (2.5-4.0) 01/19/22 06:31 Albumin/Globulin Ratio 1.2 (0.9-2) 01/19/22 06:31 Vitamin B12 709 pg/ml (180-914) 01/19/22 06:31 TSH 2.567 uIu/ml (0.300-4.500) 01/19/22 06:31 Stl C. cayetanensis PCR Not Detected (NotDetected) 01/18/22 18:30 Stool Rotavirus A PCR Not Detected (NotDetected) 01/18/22 18:30 Stl Adenov F 40/41 PCR Not Detected (NotDetected) 01/18/22 18:30 Stool Astrovirus (PCR) Not Detected (NotDetected) 01/18/22 18:30 Stool Campylobacter PCR Not Detected (NotDetected) 01/18/22 18:30 Stl C. diff Tox A/B PCR Not Detected (NotDetected) 01/18/22 18:30 Stool Cryptosporidium PCR Not Detected (NotDetected) 01/18/22 18:30 Stl E.coli Shiga Tox PCR Not Detected (NotDetected) 01/18/22 18:30 Stl Enterotoxigenic E PCR Not Detected (NotDetected) 01/18/22 18:30 Stool EPEC (PCR) Not Detected (NotDetected) 01/18/22 18:30 Stool EAEC (PCR) Not Detected (NotDetected) 01/18/22 18:30 Stl E. histolytica PCR Not Detected (NotDetected) 01/18/22 18:30 Stool Giardia Lamblia PCR Not Detected (NotDetected) 01/18/22 18:30 Stool Salmonella PCR Not Detected (NotDetected) 01/18/22 18:30 Stool Sapovirus (PCR) Not Detected (NotDetected) 01/18/22 18:30 Stl P. shigelloides PCR Not Detected (NotDetected) 01/18/22 18:30 Stl Shigella/EIEC PCR Not Detected (NotDetected) 01/18/22 18:30 St Y.enterocolitica PCR Not Detected (NotDetected) 01/18/22 18:30 Stool Vibrio (PCR) Not Detected (NotDetected) 01/18/22 18:30 Stl Vibrio cholerae PCR Not Detected (NotDetected) 01/18/22 18:30 Stl Norovirus GI/GII PCR Not Detected (NotDetected) 01/18/22 18:30 SARS-CoV-2, RNA, NAAT NEGATIVE (NEGATIVE) 01/17/22 Unknown Impressions Knee X-Ray 01/17/22 10:52 XR knee LT 1 or 2V routine CLINICAL HISTORY: Surgical Post Op TECHNIQUE: 2 views of the left knee were obtained. Comparison: Comparison is made to leg length study 08/02/2021 FINDINGS: Patient is status post total knee arthroplasty with expected postsurgical changes including soft tissue swelling, subcutaneous emphysema, and surgical staple placement. No periarticular lucency or hardware fracture is seen. The alignment is anatomic. Joint spaces are well-preserved. No joint effusion is seen. No soft tissue abnormality is seen. IMPRESSION: Expected postoperative appearance status post placement of total knee arthroplasty. ACT 112: Negative or not required by law. Electronically signed by: Zak Vieyra M.D. 01/17/2022 11:14 AM KUB X-Ray 01/18/22 16:41 KUB CLINICAL HISTORY: Constipation. Nausea. FINDINGS: 2 AP, portable, supine abdominal radiographs are correlated with abdominal CT dated 04/17/2012. There is a nonobstructed abdominal bowel gas pattern. Cholecystectomy clips are seen in the right upper quadrant. No evidence of intraperitoneal free air is identified on these supine images. No significant fecal retention is identified. There are no abnormal abdominal calcifications. 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 The skeletal structures are osteopenic and appear intact. There is moderate lumbosacral spondylosis. Arthritic change is noted in the hips. The heart is enlarged. Trace right pleural effusion is suspected. IMPRESSION: No acute abnormality is identified. Electronically signed by: Ronni Armenta M.D. 01/18/2022 7:59 PM Chest X-Ray 01/19/22 06:29 XR chest 1V portable HISTORY: Hypoxia. Follow-up. COMPARISON: Chest 01/18/2022. FINDINGS: No pneumothorax. No pleural effusions. The heart remains mildly enlarged. There is mild central pulmonary vascular congestion without overt edema. Hazy bibasilar airspace opacities persist. Calcifications noted within the aortic knob. IMPRESSION: 1. Cardiomegaly with mild congestive change. 2. Hazy bibasilar densities persist. ACT 112: Negative or not required by law. Electronically signed by: Balwinder Lugo M.D. 01/19/2022 7:30 AM
--- NOTE | 2022-01-20 14:03 | Discharge Summary ---
Date of Service January 20, 2022 Discharge Data Consultations 01/17/22 11:55 Consult Hospitalist Routine Procedures Performed Operation Date: 01/17/22 07:00 Actual Procedures p Left Total Knee Arthroplasty(Left) - Arden Wick MD Hospital Course (1) S/P total knee arthroplasty: Patient was admitted to [facility] after undergoing an elective left total knee arthroplasty by Dr. Wick on January 17, 2022. His surgery was performed with IV sedation, spinal anesthesia and a peripheral nerve block. He tolerated the surgery well without any intraoperative complications. He was given 2 g of IV Ancef prior to surgery which was continued for 24 hours after his procedure. He was awakened from surgery and transferred to the recovery room in stable condition. X-rays of his left knee were obtained in the recovery room. He was allowed out of bed, weight-bear as tolerated left lower extremity with knee immobilizer on his left knee while out of bed. Also used the assistance of a walker for ambulation. His pain was controlled with oral pain medication, IV Toradol, And Tylenol. He did develop some confusion which was evident on postoperative day 1 as well as some hypoxia. His oxygenation dropped into the 80s and he was given O2 through nasal cannula. His sats remained in the 90s. He is able to be transitioned off the oxygen. He was found to have some pleural edema and Lasix was given. He was also instructed to use incentive spirometer frequently. His confusion improved during his inpatient stay. On postoperative day 2 his dressings were changed. His incision was clean, dry and intact. New dressings were applied. He did develop some diarrhea on postoperative day 2 which was from some magnesium citrate and Colace and Senokot. He was concerned for constipation the day prior then developed some postoperative gastroparesis. He was kept another day to monitor the diarrhea and to prevent dehydration. Diarrhea seemed to resolve mid afternoon on postoperative day 2. During the episodes of diarrhea he did not have any abdominal pain or distention. No nausea or vomiting. Did not develop any postoperative lightheadedness, dizziness, chest pain or shortness of breath. His vitals remained stable. His blood work also remained stable. He was followed by hospitalist during his inpatient stay for medical management. A glycemic control consult was also placed for management of his diabetes. His home medications were continued. He was placed on Lovenox 30 mg twice daily for DVT prophylaxis along with SCDs and GRACIELA stockings. He was seen and evaluated by physical therapy and Occupational Therapy during his inpatient stay. Case management saw and evaluate the patient for discharge needs. A referral was placed to [facility]. A bed was available at [facility]. He was discharged to [facility] today on postoperative day 3, January 20, 2022 in stable condition. His daughter transported him. Postoperative expectations and discharge instructions were explained to the patient. He understands and agrees with the plan.
== END 2022-01-20 12:40 ==
LOC: 3E 05:09 → ASU 05:09

== ENCOUNTER 2022-02-05 06:56 | Inpatient (IN) ==
[2022-02-05] MEDS ORDERED: SODIUM CHLORIDE 0.9% 500 ML IV SCH (07:15)
--- NOTE | 2022-02-05 07:19 | Emergency Department Note ---
History of Present Illness General Chief complaint: Illness Stated complaint: Vomiting Time Seen by Provider: 02/05/22 06:57 Source: patient Mode of arrival: EMS History of Present Illness Provider complaint: Cough Onset (ago): week(s) Location: chest Pain Consistency: + constant Quality: + other (Cough with white sputum) Relieved By: + none Associated symptoms: + cough, + headaches, + malaise, + nausea/vomiting, + shortness of breath and + weakness; no chest pain or no fever/chills This is an 89-year-old male brought in by ambulance for generalized illness. The patient states that he had knee surgery last month. He went to [facility] and while there he developed a cough over the past week. The cough is productive of white sputum. No alleviating factors. No associated fever. He does have some difficulty breathing due to the coughing. He states that he has had a chest x-ray and Covid test which were both negative. He is not getting better today and feels very weak and so called the ambulance. He states that he has not been able to eat or drink very much due to his vomiting. He also has had diarrhea. Initially had constipation but then was using laxatives and now he is having diarrhea. The diarrhea is not bloody but he noted that it looked black for the past week. He is on Lovenox shots which she started after his knee surgery. He denies any chest discomfort or pain. He did develop conjunctivitis and was placed on some eyedrops. He states that he is not urinating very much but has no pain with urination. He has some abdominal discomfort but he states that that is chronic and not new for him. He also complains of a mild headache. Home Medications Medication Instructions Recorded Confirmed Type dorzolamide 22.3 mg-timolol 6.8 1 drp OPB BID 08/27/18 02/05/22 History mg/mL eye drops gabapentin 300 mg capsule 300 mg PO Q8H 08/27/18 02/05/22 History latanoprost 0.005 % eye drops 1 drp OPB HS 08/27/18 02/05/22 History metformin 1,000 mg tablet 1,000 mg PO BIDM 08/27/18 02/05/22 History cholecalciferol (vitamin D3) 25 1,000 units PO QAM 09/08/19 02/05/22 History mcg (1,000 unit) tablet cyanocobalamin (vitamin B-12) 1,000 mcg PO QAM 09/08/19 02/05/22 History 1,000 mcg tablet simvastatin 40 mg tablet 40 mg PO HS tab 08/09/21 02/05/22 History insulin glargine 100 unit/mL See Rx Instructions SUBCUT UD 12/27/21 02/05/22 History subcutaneous solution (Lantus U-100 Insulin) acetaminophen 500 mg tablet 1,000 mg PO Q8 PRN #30 tab 01/20/22 02/05/22 Rx (Tylenol Extra Strength) lisinopril 10 mg tablet 10 mg PO QAM 01/30/22 02/05/22 History tramadol 50 mg tablet 50 mg PO Q4H PRN tab 01/30/22 02/05/22 History ondansetron 4 mg disintegrating 4 mg PO Q8H PRN #10 tab 01/31/22 02/05/22 Rx tablet erythromycin 5 mg/gram (0.5 %) eye 1 applic OPHTHALMIC (EYE) QID #3.5 02/04/22 02/05/22 Rx ointment g Allergies Allergy/AdvReac Type Severity Reaction Status Date / Time No Known Allergies Allergy Verified 02/05/22 08:15 Past Med/Surg History Medical History Aneurysm artery, iliac - S/p repair in 2011 Per ultrasound from 12/07/21 noted in 12/07/21 vascular note- "Demonstrated a patent endovascular iliac artery aneurysm repair without evidence of stenosis or endoleak. Has residual aneurysm sac of the left measuring 2.2 cmunchanged from previous postop ultrasound" - FOLLOWS WITH DR. WILDER- last seen 12/07/21 Diabetes mellitus, type 2 Glucose stable Diabetic neuropathy Dyslipidemia GERD (gastroesophageal reflux disease) Well controlled and stable Glaucoma Follows routinely eye doctor History of COVID-19 -2019 (HOSPITALIZED 2 DAYS FOR PNX>NO CURRENT PROBLEMS) HTN (hypertension) Hx of bladder cancer S/p TURBT - 1980 - no current issues Obesity (BMI 30-39.9) Osteoarthritis Vitamin B12 deficiency Surgical History H/O Achilles tendon repair LEFT H/O vascular surgery Endovascular left common iliac artery aneurysm repair 2011 History of bladder surgery BLADDER TUMOR REMOVED (SURGERY ONLY) History of cataract surgery RT/LEFT History of cholecystectomy History of colonoscopy History of cystoscopy History of esophagogastroduodenoscopy (EGD) History of tooth extraction History of total left knee replacement Family History Father Myocardial infarction Grandfather (Paternal) No problems noted. Mother Hypertension Stroke Daughter Breast cancer Diabetes Grandmother (Maternal) No problems noted. Grandfather (Maternal) Diabetes Other No family history of adverse response to anesthesia Denies family history of Ovarian cancer Prostate cancer Lung cancer Social History Smoking Status: Former smoker Tobacco Type: Cigarettes Age Started Using Tobacco: 21; Age Quit Using Tobacco: 69; packs per day: 3; Years Smoked: 46; Second Hand Exposure: No; Hx Alcohol Use: No Hx Substance Use: No Preferred Language: Northern Irish Communication Ability: Effective Visual Impairment: Limited Hearing Ability: Normal Packing Machine Tender Required: No Beliefs That Will Affect Care: None marital status: Single Current Living Situation: Alone current occupational status: retired Feels Safe at Home: Yes Childhood Exposure to Second-Hand Smoke: Yes caffeine: Yes Dental Care, Regularly: No Physical Activity Frequency: 3-4 Times per Week Physical Activity Frequency Comment: walk/cutting wood Seatbelt Use: always Sunscreen Use: Yes Do you think of yourself as: straight/heterosexual Assistive Devices: Denture - Upper, Denture - Lower, Glasses and Walker Review of Systems See HPI for pertinent positives & negatives. and A total of 10 systems reviewed and were otherwise negative Physical Exam Vital Signs Vital Signs - 24 hr 02/05/22 07:06 02/05/22 07:09 02/05/22 07:34 Temperature 37.0 C Temperature Source Oral Pulse Rate 112 H 108 H 111 H Pulse Rate from SpO2 Sensor 115 H Pulse Rhythm Regular Regular Pulse Strength Normal Respiratory Rate 20 20 33 H Respiratory Effort / Characteristics Non-Labored Spontaneous Non-Labored Spontaneous Respiratory Depth Normal Respiratory Pattern Regular Blood Pressure 131/73 159/80 H Blood Pressure Mean 92 106 Blood Pressure Position Sitting Pulse Oximetry 95 92 94 Oxygen Delivery Method Room Air Room Air Sepsis Recent Fever Within 48 Hours No Sepsis New/Unexplained Change in Mental Status No Sepsis Action Taken by Nursing No Action Required 02/05/22 08:00 02/05/22 08:30 Temperature Temperature Source Pulse Rate 111 H 107 H Pulse Rate from SpO2 Sensor 109 H 107 H Pulse Rhythm Pulse Strength Respiratory Rate 33 H 36 H Respiratory Effort / Characteristics Respiratory Depth Respiratory Pattern Blood Pressure 154/75 H 131/69 Blood Pressure Mean 101 89 Blood Pressure Position Pulse Oximetry 93 93 Oxygen Delivery Method Sepsis Recent Fever Within 48 Hours Sepsis New/Unexplained Change in Mental Status Sepsis Action Taken by Nursing Constitutional: Vital signs reviewed. Coughing throughout the exam. Eyes: Pupils are equal round reactive to light. Conjunctiva are mildly injected without discharge. ENT: Pharynx is clear without erythema or exudate. Mucous membranes are dry. Neck supple without meningeal signs. Respiratory: Clear to auscultation bilaterally. Breath sounds are equal bilaterally. Cardiovascular: Mild tachycardia. Regular rhythm. GI: Soft, nondistended and nontender. Bowel sounds are present. Rectal: Guaiac negative light brown stool. Musculoskeletal: Midline incision to the left knee intact. No evidence of drainage or cellulitis. There is some mild increased warmth compared to the right without erythema. No significant tenderness to the knee. Integumentary: No cyanosis. or jaundice. Neurological: The patient is awake and alert. No focal deficits. Psychiatric: Normal affect. Course Administered Medications Sodium Chloride (Nss) 500 mls @ 80 mls/hr IV .Q6H15M [facility] Stop: 03/07/22 07:14 Last Admin: 02/05/22 07:39 Dose: 80 mls/hr Documented by: [id number] Discontinued Medications Piperacillin Sod/Tazobactam Sod (Zosyn) 4.5 gm in 120 mls @ 240 mls/hr IV NOW ONE Stop: 02/05/22 08:15 Last Admin: 02/05/22 08:00 Dose: 240 mls/hr Documented by: [id number] Magnesium Sulfate/Dextrose (Magnesium Sulfate / D5w) 1 gm in 100 mls @ 100 mls/hr IV NOW STA Stop: 02/05/22 09:41 Last Admin: 02/05/22 09:02 Dose: 100 mls/hr Documented by: [id number] Medical Decision Making Differential Diagnosis Pneumonia, influenza, sepsis, dehydration, UTI, viral syndrome, LATISHA Medical Records Attestation: I reviewed the patient's medical records. I did perform a limited focused review of portions of the patient's old chart on the electronic medical record. The patient underwent left knee total arthroplasty last month. He developed a cough and diarrhea with vomiting and was seen by his primary care provider on January 31 and . He had a negative Covid test on the . He had a white count of 14 on the . Chest x-ray was obtained and was negative for pneumonia. Home Medications Current Medication List: was personally reviewed by me Laboratory Data Attestation: I reviewed the patient's lab results. Result diagrams: 02/05/22 07:22 02/05/22 07: Lab Results 02/05/22 02/05/22 02/05/22 Range/Units 07: 07: 07: WBC 13.64 H (4.8-10.8) K/uL RBC 4.58 L (4.7-6.1) M/uL Hgb 13.7 L (14.0-18.0) g/dL Hct 40.8 L (42-52) % MCV 89.1 (80-100) fL MCH 29.9 (25-34) pg MCHC 33.6 (32-36) g/dL RDW Std Deviation 45.1 (36.4-46.3) fL RDW Coeff of Mya 13.8 (11.5-14.5) % Plt Count 358 (130-400) K/uL MPV 9.7 (7.4-10.4) fL Immature Gran % (Auto) 0.4 % Neut % (Auto) 75.7 % Lymph % (Auto) 12.1 % Leake % (Auto) 11.2 % Eos % (Auto) 0.3 % Baso % (Auto) 0.3 % Neut # (Auto) 10.33 H (1.4-6.5) K/uL Lymph # (Auto) 1.65 (1.2-3.4) K/uL Leake # (Auto) 1.53 H (0.11-0.59) K/uL Eos # (Auto) 0.04 (0-0.5) K/uL Baso # (Auto) 0.04 (0-0.2) K/uL Immature Gran # (Auto) 0.05 H (0.00-0.02) K/uL PT 12.6 H (9.0-12.0) Seconds INR 1.2 H (0.9-1.1) APTT 31.6 H (21.0-31.0) Seconds PTT Ratio 1.1 Sodium 133 L (136-145) mmol/L Potassium 4.5 (3.5-5.1) mmol/L Chloride 97 L (98-107) mmol/L Carbon Dioxide 25 (21-32) mmol/L Anion Gap 11 (3-11) BUN 19 (6-23) mg/dl Creatinine 1.17 (0.6-1.4) mg/dl Est Cr Clr Drug Dosing Not Reportable Est GFR ( Amer) 63.7 ml/min Est GFR (Non-Af Amer) 54.9 ml/min BUN/Creatinine Ratio 16.2 (10-20) Glucose 179 H (70-99(Fasting)) mg/dl Lactate (0.4-2.0) mmol/L Calcium 9.5 (8.5-10.1) mg/dl Magnesium 1.5 L (1.7-2.4) mg/dl Total Bilirubin 1.1 H (0.2-1.0) mg/dl AST 58 H (13-39) U/L ALT 65 H (7-52) U/L Alkaline Phosphatase 132 H (34-104) U/L Troponin I < 0.03 (0-0.04) ng/ml Total Protein 7.9 (6.0-8.3) gm/dl Albumin 3.6 (3.4-5.0) gm/dl Globulin 4.3 H (2.5-4.0) gm/dl Albumin/Globulin Ratio 0.8 L (0.9-2) SARS-CoV-2 (PCR) (Negative) Influenza Type A (PCR) (Neg) Influenza Type B (PCR) (Neg) RSV (RT-PCR) (Neg) 02/05/22 02/05/22 Range/Units 07:22 07:23 WBC (4.8-10.8) K/uL RBC (4.7-6.1) M/uL Hgb (14.0-18.0) g/dL Hct (42-52) % MCV (80-100) fL MCH (25-34) pg MCHC (32-36) g/dL RDW Std Deviation (36.4-46.3) fL RDW Coeff of Mya (11.5-14.5) % Plt Count (130-400) K/uL MPV (7.4-10.4) fL Immature Gran % (Auto) % Neut % (Auto) % Lymph % (Auto) % Leake % (Auto) % Eos % (Auto) % Baso % (Auto) % Neut # (Auto) (1.4-6.5) K/uL Lymph # (Auto) (1.2-3.4) K/uL Leake # (Auto) (0.11-0.59) K/uL Eos # (Auto) (0-0.5) K/uL Baso # (Auto) (0-0.2) K/uL Immature Gran # (Auto) (0.00-0.02) K/uL PT (9.0-12.0) Seconds INR (0.9-1.1) APTT (21.0-31.0) Seconds PTT Ratio Sodium (136-145) mmol/L Potassium (3.5-5.1) mmol/L Chloride (98-107) mmol/L Carbon Dioxide (21-32) mmol/L Anion Gap (3-11) BUN (6-23) mg/dl Creatinine (0.6-1.4) mg/dl Est Cr Clr Drug Dosing Est GFR ( Amer) ml/min Est GFR (Non-Af Amer) ml/min BUN/Creatinine Ratio (10-20) Glucose (70-99(Fasting)) mg/dl Lactate 1.4 (0.4-2.0) mmol/L Calcium (8.5-10.1) mg/dl Magnesium (1.7-2.4) mg/dl Total Bilirubin (0.2-1.0) mg/dl AST (13-39) U/L ALT (7-52) U/L Alkaline Phosphatase (34-104) U/L Troponin I (0-0.04) ng/ml Total Protein (6.0-8.3) gm/dl Albumin (3.4-5.0) gm/dl Globulin (2.5-4.0) gm/dl Albumin/Globulin Ratio (0.9-2) SARS-CoV-2 (PCR) NEGATIVE (Negative) Influenza Type A (PCR) Negative (Neg) Influenza Type B (PCR) Negative (Neg) RSV (RT-PCR) Negative (Neg) Imaging Data Radiologist's Impression: Chest X-Ray 02/05/22 07:09 XR chest 1V portable HISTORY: cough COMPARISON: Chest 02/02/2022. FINDINGS: No pneumothorax. No pleural effusions. The cardiac silhouette remains top normal in size. Mild emphysema again noted. The upper lung zones are clear. Increased markings at the left lung base could represent atelectasis or pneumonia. Stable small linear scarlike densities at the right lung base. No evidence for pulmonary edema. IMPRESSION: Increased markings at the left lung base could represent atelectasis or pneumon ia. ACT 112: Negative or not required by law. Electronically signed by: Balwinder Lugo M.D. 02/05/2022 7:40 AM ECG Data Attestation: I personally reviewed and interpreted this ECG as follows: Indication: + weakness Rate (beats per minute): 111 Rhythm: + sinus tachycardia ECG Chapin: + Normal ECG ST segments: no ST elevation ECG Findings: + PACs; no PVCs MDM Narrative I did evaluate the patient as noted above. The patient is presenting with cough for a week with vomiting and diarrhea. He did recently have a left knee replacement. He states he is currently taking Lovenox. He states the left knee does not bother him. He has no signs of infection to the knee. IV access was established. I did treat him with normal saline IV at a rate of 80 mL an hour. I did place an order for continuous cardiac monitoring. The monitor showed sinus tachycardia at a rate of 109 bpm. I did order and personally review the patient's 12-lead EKG as described above. He has sinus tachycardia without acute ischemic changes. I did order and personally reviewed the images of the patient's chest x-ray as described above. He appears to have a left lower lobe pneumonia. I did order a urine analysis. I did order and review the patient's blood work as noted in the electronic medical record. Blood cultures were ordered. I did treat the patient with Zosyn IV. CBC shows a white count of 13.6. Hemoglobin is 13.7. Platelet count is within normal limits. INR is 1.2. Electrolytes show a sodium 133 and a magnesium 1.5 with a chloride of 97. He was given magnesium IV. LFTs are slightly elevated. Troponin is negative. Lactic acid is not elevated. Testing for Covid, influenza and RSV are negative. I did discuss the test results with the patient and his daughter. He will be hospitalized for further care and evaluation. I did discuss case with the hospitalist and caseworker. Impression & Plan Left lower lobe pneumonia, Vomiting and diarrhea, Acute dehydration, Abnormal LFTs, Hyponatremia, Hypomagnesemia Discharge Plan Visit Data Chief Complaint: Illness Stated Complaint: Vomiting ED Provider: Micah Duncan Discharge Problem: Left lower lobe pneumonia, Vomiting and diarrhea, Acute dehydration, Abnormal LFTs, Hyponatremia, Hypomagnesemia Patient Disposition: Being Evaluated by Hospitalist Forms Stand Alone Forms: My [facility] Prescriptions Prescriptions: No Action ondansetron 4 mg tablet,disintegrating 4 mg PO Q8H PRN (Reason: nausea and vomiting) Qty: 10 RF: 0 cyanocobalamin (vitamin B-12) 1,000 mcg tablet 1,000 mcg PO QAM RF: 0 cholecalciferol (vitamin D3) 25 mcg (1,000 unit) tablet 1,000 units PO QAM RF: 0 lisinopril 10 mg tablet 10 mg PO QAM RF: 0 tramadol 50 mg tablet 50 mg PO Q4H PRN (Reason: pain) RF: 0 erythromycin 5 mg/gram (0.5 %) ointment 1 applic ophthalmic (eye) QID Qty: 3.5 RF: 1 dorzolamide-timolol 22.3-6.8 mg/mL drops 1 drp OPB BID RF: 0 latanoprost 0.005 % drops 1 drp OPB HS RF: 0 metformin 1,000 mg tablet 1,000 mg PO BIDM RF: 0 gabapentin 300 mg Capsule 300 mg PO Q8H RF: 0 simvastatin 40 mg tablet 40 mg PO HS RF: 0 Lantus U-100 Insulin 100 unit/mL solution See Rx Instructions SUBCUT UD RF: 0 acetaminophen [Tylenol Extra Strength] 500 mg Tablet 1,000 mg PO Q8 PRN (Reason: fever or pain) Qty: 30 RF: 0 Referrals Referrals: Jr Curry DO [Primary Care Provider] - Discharge Problem: Left lower lobe pneumonia Qualifiers: Pneumonia type: due to unspecified organism Qualified Code(s): J18.9 - Pneumonia, unspecified organism
[2022-02-05 07:33] LABS: Basophils # (auto) 0.04 K/uL (0-0.2); Basophils % (auto) 0.3 %; Eosinophils # (auto) 0.04 K/uL (0-0.5); Eosinophils % (auto) 0.3 %; Hematocrit (blood only) 40.8 % (42-52); Hemoglobin 13.7 g/dL (14.0-18.0); Immature Granulocytes # (auto) 0.05 K/uL (0.00-0.02); Immature Granulocytes % (auto) 0.4 %; Lymphocytes # (auto) 1.65 K/uL (1.2-3.4); Lymphocytes % (auto) 12.1 %; Mean Corpuscular Hemoglobin 29.9 pg (25-34); Mean Corpuscular Hgb Conc 33.6 g/dL (32-36); Mean Corpuscular Volume 89.1 fL (80-100); Mean Platelet Volume 9.7 fL (7.4-10.4); Monocytes # (auto) 1.53 K/uL (0.11-0.59); Monocytes % (auto) 11.2 %; Neutrophils # (auto) 10.33 K/uL (1.4-6.5); Neutrophils % (auto) 75.7 %; Platelet Count 358 K/uL (130-400); RDW Coefficient of Variation 13.8 % (11.5-14.5); RDW Standard Deviation 45.1 fL (36.4-46.3); Red Blood Count 4.58 M/uL (4.7-6.1); White Blood Count 13.64 K/uL (4.8-10.8)
--- NOTE | 2022-02-05 07:41 | XRay Report ---
XR chest 1V portable HISTORY: cough COMPARISON: Chest 02/02/2022. FINDINGS: No pneumothorax. No pleural effusions. The cardiac silhouette remains top normal in size. M ild emphysema again noted. The upper lung zones are clear. Increased markings at the left lung base c ould represent atelectasis or pneumonia. Stable small linear scarlike densities at the right lung bas e. No evidence for pulmonary edema. IMPRESSION: Increased markings at the left lung base could represent atelectasis or pneumonia. ACT 112: Negative or not required by law. Electronically signed by: Balwinder Lugo M.D. 02/05/2022 7:40 AM
[2022-02-05] MEDS ORDERED: PIPERACILLIN/TAZOBACTAM 4.5 GM/120 ML BAG IV ONE (07:46)
[2022-02-05] MEDS ORDERED: PIPERACILL/TAZOBAC CONSULT ACTIVE PRN ×2 (07:46→12:23)
[2022-02-05 07:49] LABS: INR 1.2 (0.9-1.1); Partial Thromboplastin Ratio 1.1; Partial Thromboplastin Time 31.6 Seconds (21.0-31.0); Prothrombin Time 12.6 Seconds (9.0-12.0)
[2022-02-05 08:09] LABS: Influenza A virus by PCR Negative (Neg); Influenza B virus by PCR Negative (Neg); RSV by PCR Negative (Neg); SARS CoV2 RNA(COVID-19) InHosp NEGATIVE (Negative)
[2022-02-05 08:11] LABS: Troponin I < 0.03 ng/ml (0-0.04)
[2022-02-05 08:14] LABS: Alanine Aminotransferase 65 U/L (7-52); Albumin Globulin Ratio 0.8 (0.9-2); Albumin Level 3.6 gm/dl (3.4-5.0); Alkaline Phosphatase 132 U/L (34-104); Anion Gap 11 (3-11); Aspartate Aminotransferase 58 U/L (13-39); BUN Creatinine Ratio 16.2 (10-20); Bilirubin,Total 1.1 mg/dl (0.2-1.0); Blood Urea Nitrogen 19 mg/dl (6-23); Calcium 9.5 mg/dl (8.5-10.1); Carbon Dioxide 25 mmol/L (21-32); Chloride 97 mmol/L (98-107); Est GFR (African American) 63.7 ml/min; Est GFR (Non-African American) 54.9 ml/min; Globulin 4.3 gm/dl (2.5-4.0); Glucose 179 mg/dl (70-99(Fasting)); Magnesium 1.5 mg/dl (1.7-2.4); Potassium 4.5 mmol/L (3.5-5.1); Sodium 133 mmol/L (136-145); Total Protein 7.9 gm/dl (6.0-8.3)
[2022-02-05] MEDS ORDERED: MAGNESIUM SULFATE / D5W 1 GM/100 ML BAG IV STA (08:42)
[2022-02-05 09:46] LABS: Appearance Urine Cloudy (Clear); Bilirubin Urine Negative (Negative); Blood Urine Negative (Negative); Color Urine Dark Yellow; Epithelial Cell Urine Auto >30 /lpf (0-5); Glucose Urine UA Negative (Negative); Ketones Urine Trace (Negative); Leukocyte Esterase Urine Trace (Negative); Nitrite Urine Negative (Negative); Protein Urine 2+ (Negative); RBC Urine Automated 0-4 /hpf (0-4); Specific Gravity Urine 1.027 (1.000-1.030); Urobilinogen Urine Negative (Negative)
[2022-02-05 10:04] LABS: Bacteria Urine Automated 1+ (Negative)
[2022-02-05] MEDS ORDERED: guaiFENesin/CODEINE 100MG/10MG 5ML UDC PO STA (10:22)
--- NOTE | 2022-02-05 10:26 | History & Physical Report ---
Date of Service February 05, 2022 Assessment & Plan (1) Left lower lobe pneumonia: Plan: 89-year-old white male recently hospitalized for an elective left TKA (01/17) now presenting with at the very least LLL PNA but clinically bibasilar pneumonia, leukocytosis, and hypoxemia with minimal exertion - Given recent hospitalization, utilize Zosyn for hospital-acquired pathogens. In addition, will start azithromycin for atypical coverage --Levaquin would provide adequate hospital-acquired and atypical coverage; however, being avoided given recent orthopedic procedure - Utilize supplemental oxygen as needed. Not hypoxic at rest but does desaturate with limited exertion such as leaning forward - Initiate nebulized treatments, mucolytic agents, and antitussives as needed - Although his Covid was negative, am suspicious given the associated diarrhea and conjunctivitis. Will obtain PCR test along with a biofire panel to rule out other viral illnesses - Obtain sputum culture and blood cultures - Continue to follow clinically - will need PT/OT - patient is SOB and although had recent surgery, not highly suspicious for PE and will hold off on CTA for now. He has leukocytosis, a productive cough, radiographic findings of PNA and rales on exam. (2) Diarrhea: Plan: - exact etiology unclear - did have recent elective Left TKA- was on pain medication and a bowel regimen-- stool softeners likely contributing - could be viral in nature - obtain a KUB - obtain stool studies - follow clinically - add Metamucil and probiotic (3) Conjunctivitis: Plan: - covid PCR ordered and pending - could be viral - nicole/poly/dex ophth solution ordered - follow clinically (4) Hypomagnesemia: Plan: - replace (5) S/P total knee arthroplasty: Plan: - done 01/[address] Wick - short stay at [facility] following, just discharged from there 01/28 - uneventful perioperative course (6) Diabetes: Plan: - usually on Lantus 40U in am/25u in PM-- will give 30U BID for now. Uptitrate if needed - Carb consistent diet - monitor BS and correct via SS/correction dosing - hold Metformin while in house (7) HTN (hypertension): Plan: - lisinopril on hold. Pt reports ongoing hypotension since recent procedure and PCP recently told him to hold this medications - suspect mild dehydration given poor oral intake Plan: lovenox for DVT prophylaxis antipyretics and antiemetics as needed Code Status: full D/W and updated daughter who was at bedside plan of care D/W Dr. Rose. History of Present Illness Chief Complaint: cough, SOB, diarrhea x 4 days Primary Care Provider: Jr Curry DO Mr. Singh is an 89-year-old white male with an underlying past medical history of IDDM, HTN, HLD, PAD, bladder CA and OA. He presented to the hospital complaining of cough, shortness of breath, and diarrhea X 4 days. Recently underwent an elective left total knee arthroplasty on 01/17. Had a 3-day hospital stay and was subsequently discharged to . Has been they are doing well and discharged 1 week ago. Since being home, he has been feeling excessively fatigued. His appetite has been poor. He has had diarrhea without abdominal pain, nausea or vomiting. 4 days ago, he developed sinus congestion, chills, and worsening fatigue prompting him to see his PCP. Was thought to have a viral syndrome and supportive care was given. Throughout the past 3 days, he has been having progressive symptoms now with a productive coughgreen/brown sputum. He is getting short of breath with limited exertion which is what prompted him to seek medical attention today. In the emergency department, he was afebrile and hemodynamically stable. Pulse ox is 93% on room air but he does desaturate into the 70s with limited exertion such as leaning forward in the bed. His white blood cell count is elevated at 13.64 with a left shift. He appears to have radiographic evidence of a LLL infiltrate. Covid is negative. Given Zosyn IV and IVF. He will be hospitalized for further evaluation and care. Allergies Allergy/AdvReac Type Severity Reaction Status Date / Time No Known Allergies Allergy Verified 02/05/22 08:15 Home Medications Medication Instructions Recorded Confirmed Type dorzolamide 22.3 mg-timolol 6.8 1 drp OPB BID 08/27/18 02/05/22 History mg/mL eye drops gabapentin 300 mg capsule 300 mg PO Q8H 08/27/18 02/05/22 History latanoprost 0.005 % eye drops 1 drp OPB HS 08/27/18 02/05/22 History metformin 1,000 mg tablet 1,000 mg PO BIDM 08/27/18 02/05/22 History cholecalciferol (vitamin D3) 25 1,000 units PO QAM 09/08/19 02/05/22 History mcg (1,000 unit) tablet cyanocobalamin (vitamin B-12) 1,000 mcg PO QAM 09/08/19 02/05/22 History 1,000 mcg tablet simvastatin 40 mg tablet 40 mg PO HS tab 08/09/21 02/05/22 History insulin glargine 100 unit/mL See Rx Instructions SUBCUT UD 12/27/21 02/05/22 History subcutaneous solution (Lantus U-100 Insulin) acetaminophen 500 mg tablet 1,000 mg PO Q8 PRN #30 tab 01/20/22 02/05/22 Rx (Tylenol Extra Strength) lisinopril 10 mg tablet 10 mg PO QAM 01/30/22 02/05/22 History tramadol 50 mg tablet 50 mg PO Q4H PRN tab 01/30/22 02/05/22 History ondansetron 4 mg disintegrating 4 mg PO Q8H PRN #10 tab 01/31/22 02/05/22 Rx tablet erythromycin 5 mg/gram (0.5 %) eye 1 applic OPHTHALMIC (EYE) QID #3.5 02/04/22 02/05/22 Rx ointment g Past Med/Surg History Medical History Aneurysm artery, iliac - S/p repair in 2011 Per ultrasound from 12/07/21 noted in 12/07/21 vascular note- "Demonstrated a patent endovascular iliac artery aneurysm repair without evidence of stenosis or endoleak. Has residual aneurysm sac of the left measuring 2.2 cmunchanged from previous postop ultrasound" - FOLLOWS WITH DR. WILDER- last seen 12/07/21 Diabetes mellitus, type 2 Glucose stable Diabetic neuropathy Dyslipidemia GERD (gastroesophageal reflux disease) Well controlled and stable Glaucoma Follows routinely eye doctor History of COVID-19 -2019 (HOSPITALIZED 2 DAYS FOR PNX>NO CURRENT PROBLEMS) HTN (hypertension) Hx of bladder cancer S/p TURBT - 1980 - no current issues Obesity (BMI 30-39.9) Osteoarthritis Vitamin B12 deficiency Surgical History H/O Achilles tendon repair LEFT H/O vascular surgery Endovascular left common iliac artery aneurysm repair 2011 History of bladder surgery BLADDER TUMOR REMOVED (SURGERY ONLY) History of cataract surgery RT/LEFT History of cholecystectomy History of colonoscopy History of cystoscopy History of esophagogastroduodenoscopy (EGD) History of tooth extraction History of total left knee replacement Family History Father Myocardial infarction Grandfather (Paternal) No problems noted. Mother Hypertension Stroke Daughter Breast cancer Diabetes Grandmother (Maternal) No problems noted. Grandfather (Maternal) Diabetes Other No family history of adverse response to anesthesia Denies family history of Ovarian cancer Prostate cancer Lung cancer Social History Smoking Status: Former smoker Tobacco Type: Cigarettes Age Started Using Tobacco: 21; Age Quit Using Tobacco: 69; packs per day: 3; Years Smoked: 46; Second Hand Exposure: No; Hx Alcohol Use: No Hx Substance Use: No Preferred Language: Cook Islander Communication Ability: Effective Visual Impairment: Limited Hearing Ability: Normal Health Specialist Required: No Beliefs That Will Affect Care: None marital status: Single Current Living Situation: Alone current occupational status: retired Feels Safe at Home: Yes Childhood Exposure to Second-Hand Smoke: Yes caffeine: Yes Dental Care, Regularly: No Physical Activity Frequency: 3-4 Times per Week Physical Activity Frequency Comment: walk/cutting wood Seatbelt Use: always Sunscreen Use: Yes Do you think of yourself as: straight/heterosexual Assistive Devices: Denture - Upper, Denture - Lower, Glasses and Walker Review of Systems Review of Systems: All systems reviewed and are unremarkable except as noted in HPI and below Positives as outlined above. Otherwise, denies fevers, headache, chest pain, palpitations, orthopnea, PND, abdominal pain, nausea, vomiting, diarrhea, constipation, dysuria, hematuria, frequency, back pain, joint pain or swelling, easy bruising or bleeding, skin lesions or rashes. Physical Exam Physical Exam: General: Resting comfortably in his hospital bed. Appears mildly ill but not toxic. NAD. HEENT: Bilateral conjunctiva is erythematous/injected with exudates. Mild sinus tenderness bilaterally. Oropharynx is erythematous without exudate. Neck: No JVD. Negative hepatojugular reflex. Anterior cervical chain lymphadenopathy noted Cardiac: RRR with 1/6 JULIO Lungs: Speaking full sentences on ambient air. Normal respiratory effort. Bibasilar rales. Rhonchi scattered throughout that clears with coughing. Faint positive egophony in the right base. Noted to desaturate into the 70s when leaning forward but quickly recovered. Abdomen: Normoactive X4. Soft and nontender in all quadrants. Extremities: No peripheral clubbing cyanosis or edema Neuro: A&O X4. Cranial nerves II through XII are grossly intact. No focal neuro deficits Skin: No obvious skin lesions or rashes Psych: Appropriate affect. Pleasant and cooperative Results & Data Results & Data ([place]) Vital Signs (Past 12 Hours) Vital Signs Temp Pulse Resp BP Pulse Ox 02/05/22 09:30 104 H 30 H 127/88 95 02/05/22 08:30 107 H 36 H 131/69 93 02/05/22 08:00 111 H 33 H 154/75 H 93 02/05/22 07:34 111 H 33 H 159/80 H 94 02/05/22 07:09 108 H 20 92 02/05/22 07:06 37.0 C 112 H 20 131/73 95 Laboratory Results 02/05/22 07:22 02/05/22 07:22 Covid: Negative Diagnostic Findings CXR: IMPRESSION: Increased markings at the left lung base could represent atelectasis or pneumonia PG Care Time/CCT Total # of Minutes Spent Total Time Spent with Patient: Total time spent is greater than 50% in coordination of care (as documented) at patient's floor/unit and/or counseling patient: Coding Level of Care Code 51654 Initial Inpt Care Lvl 3 Diagnoses Left lower lobe pneumonia J18.9 Pneumonia type: due to unspecified organism Diarrhea R19.7 Hypomagnesemia E83.42 S/P total knee arthroplasty Z96.659 Diabetes E11.9 HTN (hypertension) I10 Conjunctivitis H10.9 (1) Left lower lobe pneumonia Pneumonia type: due to unspecified organism Qualified Code(s): J18.9 - Pneumonia, unspecified organism
--- NOTE | 2022-02-05 11:27 | Electrocardiogram Report ---
Test Reason : Blood Pressure : / mmHG Vent. Rate : 111 BPM Atrial Rate : 111 BPM P-R Int : 182 ms QRS Dur : 090 ms QT Int : 316 ms P-R-T Axes : 029 020 052 degrees QTc Int : 429 ms Sinus tachycardia with Premature supraventricular complexes Otherwise normal ECG When compared with ECG of 26-DEC-2021 12:03, Premature supraventricular complexes are now Present MD interval has decreased Confirmed by Vishnu Simon ([id number]) on 02/05/2022 11:27:11 AM Referred By: ED Confirmed By:Vishnu Simon
--- NOTE | 2022-02-05 11:44 | XRay Report ---
KUB CLINICAL HISTORY: Diarrhea. FINDINGS: An AP supine abdominal radiograph is compared to study dated 01/18/2022 and correlated with abdominal CT dated 04/25/2012. Cross-sectional clips are seen in the right upper quadrant. An aortobii liac stent graft is in place. There is mild gaseous distention of the small bowel and colon with no r adiographic evidence of high-grade obstruction. No evidence of intraperitoneal free air is seen on th is supine examination. There are no abnormal abdominal calcifications. Bladder distention is noted in the pelvis. The skeletal structures are osteopenic and appear intact. There is moderate lumbosacral spondylosis. IMPRESSION: 1. There is mild gaseous distention of the small bowel and colon with no radiographic evidence of hig h-grade obstruction. Correlate clinically for evidence of ileus. 2. Bladder distention is suggested in the pelvis. Electronically signed by: Ronni Armenta M.D. 02/05/2022 11:42 AM
[2022-02-05] MEDS ORDERED: SODIUM CHLORIDE 0.9% 1000ML 1,000 ML IV SCH (12:23)
[2022-02-05] MEDS ORDERED: CARBOHYDRATES FOR HYPOGLYCEMIA PO PRN (12:23)
[2022-02-05] MEDS ORDERED: ACETAMINOPHEN 325 MG TAB PO PRN (12:23)
[2022-02-05] MEDS ORDERED: traMADol HCL 50 MG TABLET PO PRN (12:23)
[2022-02-05] MEDS ORDERED: DEXTROSE 50% 50 ML SYRINGE IV PRN (12:23)
[2022-02-05] MEDS ORDERED: GLUCOSE 40% GEL 15 GM TUBE PO PRN (12:23)
[2022-02-05] MEDS ORDERED: GLUCOSE 10 TABS/TUBE PO PRN (12:23)
[2022-02-05] MEDS ORDERED: GLUCAGON FOR INJ 1 MG VIAL SQ PRN (12:23)
[2022-02-05] MEDS ORDERED: ONDANSETRON INJ 2 MG/ML 2 ML VIAL IV PRN (12:23)
[2022-02-05] MEDS: ACETAMINOPHEN 325 MG TAB PO PRN (12:37)
[2022-02-05] MEDS: INSULIN ASPART PER UNIT SC SCH ×3 (12:45→20:19)
[2022-02-05] MEDS: ALBUT/IPRATROP 3MG/0.5MG NEB 3 ML VIAL NEB SCH ×3 (12:49→19:33)
[2022-02-05] MEDS: AZITHROMYCIN 500 MG in DEXTROSE 5% 250 ML IV SCH (12:54)
[2022-02-05] MEDS: TOBRAMYCIN/DEXAMETHASONE OPH SUSP 2.5 ML BTL OP SCH ×3 (14:48→23:48)
[2022-02-05] MEDS: PIPERACILLIN/TAZOBACTAM 3.375 GM in DEXTROSE 5% 100 ML IV SCH ×2 (14:49→21:29)
[2022-02-05] MEDS: GABAPENTIN 300 MG CAP PO SCH ×2 (15:37→20:21)
[2022-02-05 18:24] LABS: Adenovirus PCR Not Detected (NotDetected); Bordetella parapertussis PCR Not Detected (NotDetected); Bordetella pertussis PCR Not Detected (NotDetected); Chlamydia pneumoniae PCR Not Detected (NotDetected); Coronavirus 229E PCR Not Detected (NotDetected); Coronavirus CoV-2 (COVID19)PCR Not Detected (NotDetected); Coronavirus HKU1 PCR Not Detected (NotDetected); Coronavirus NL63 PCR Not Detected (NotDetected); Coronavirus OC43PCR Not Detected (NotDetected); Human Metapneumovirus PCR Not Detected (NotDetected); Influenza A PCR Not Detected (NotDetected); Influenza B PCR Not Detected (NotDetected); Mycoplasma pneumoniae PCR Not Detected (NotDetected); Parainfluenza Virus 1 PCR Not Detected (NotDetected); Parainfluenza Virus 2 PCR Not Detected (NotDetected); Parainfluenza Virus 3 PCR Not Detected (NotDetected); Parainfluenza Virus 4 PCR Not Detected (NotDetected); Respiratory Syncytial VirusPCR Not Detected (NotDetected); Rhinovirus/Enterovirus PCR Not Detected (NotDetected)
[2022-02-05] MEDS: DORZOLAMIDE/TIMOLOL 22.3/6.8MG/ML 10 ML BTL OPB SCH (20:18)
[2022-02-05] MEDS: guaiFENesin 600 MG TABCR PO SCH (20:19)
[2022-02-05] MEDS: LATANOPROST 0.005% OP SOLN 2.5 ML BTL OPB SCH (20:20)
[2022-02-05] MEDS: INSULIN GLARGINE SOLOSTAR 100 UNITS/ML 3 ML PEN SC SCH (20:20)
[2022-02-05] MEDS: SIMVASTATIN 40 MG TAB PO SCH (20:21)
[2022-02-06] MEDS: GABAPENTIN 300 MG CAP PO SCH ×3 (05:15→20:22)
[2022-02-06] MEDS: TOBRAMYCIN/DEXAMETHASONE OPH SUSP 2.5 ML BTL OP SCH ×4 (05:15→22:23)
[2022-02-06] MEDS: PIPERACILLIN/TAZOBACTAM 3.375 GM in DEXTROSE 5% 100 ML IV SCH ×3 (05:15→22:21)
[2022-02-06] MEDS: ALBUT/IPRATROP 3MG/0.5MG NEB 3 ML VIAL NEB SCH ×3 (07:04→15:05)
[2022-02-06 07:54] LABS: Basophils # (auto) 0.04 K/uL (0-0.2); Basophils % (auto) 0.3 %; Eosinophils % (auto) 0.8 %; Hematocrit (blood only) 35.8 % (42-52); Hemoglobin 11.9 g/dL (14.0-18.0); Immature Granulocytes # (auto) 0.05 K/uL (0.00-0.02); Immature Granulocytes % (auto) 0.4 %; Lymphocytes # (auto) 2.78 K/uL (1.2-3.4); Lymphocytes % (auto) 22.8 %; Mean Corpuscular Hemoglobin 29.8 pg (25-34); Mean Corpuscular Hgb Conc 33.2 g/dL (32-36); Mean Corpuscular Volume 89.5 fL (80-100); Mean Platelet Volume 9.8 fL (7.4-10.4); Monocytes # (auto) 1.29 K/uL (0.11-0.59); Monocytes % (auto) 10.6 %; Neutrophils # (auto) 7.92 K/uL (1.4-6.5); Neutrophils % (auto) 65.1 %; Platelet Count 311 K/uL (130-400); RDW Standard Deviation 46.1 fL (36.4-46.3); White Blood Count 12.18 K/uL (4.8-10.8)
[2022-02-06 08:14] LABS: BUN Creatinine Ratio 15.8 (10-20); Calcium 8.6 mg/dl (8.5-10.1); Creatinine Clr Calc Pharmacy 49.9 ml/min; Est GFR (African American) 65.7 ml/min; Est GFR (Non-African American) 56.7 ml/min; Magnesium 1.7 mg/dl (1.7-2.4); Potassium 4.2 mmol/L (3.5-5.1)
[2022-02-06] MEDS: CYANOCOBALAMIN (B-12) 500 MCG TABLET PO SCH (08:17)
[2022-02-06] MEDS: guaiFENesin 600 MG TABCR PO SCH ×2 (08:17→20:21)
[2022-02-06] MEDS: ADVANCED PROBIOTIC 1250 MG CAPSULE PO SCH (08:17)
[2022-02-06] MEDS: INSULIN GLARGINE SOLOSTAR 100 UNITS/ML 3 ML PEN SC SCH (08:17)
[2022-02-06] MEDS: DORZOLAMIDE/TIMOLOL 22.3/6.8MG/ML 10 ML BTL OPB SCH ×2 (08:18→20:20)
[2022-02-06] MEDS: PSYLLIUM 58.6% POWDER PACKET PO SCH (08:18)
[2022-02-06] MEDS: INSULIN ASPART PER UNIT SC SCH ×4 (08:25→20:27)
[2022-02-06] MEDS: ENOXAPARIN INJ 40 MG/0.4 ML SYR SQ SCH (09:47)
[2022-02-06 12:25] LABS: Adenovirus F 40/41 PCR Not Detected (NotDetected); Astrovirus PCR Not Detected (NotDetected); Campylobacter PCR Not Detected (NotDetected); Clostridium diff Toxin A/B PCR Not Detected (NotDetected); Cryptosporidium PCR Not Detected (NotDetected); Cyclospora cayetanensis PCR Not Detected (NotDetected); Entamoeba histolytica PCR Not Detected (NotDetected); Enteroaggregative E.coli(EAEC) Not Detected (NotDetected); Enteropathogenic E.coli (EPEC) Not Detected (NotDetected); Enterotoxigenic E.coli (ETEC) Not Detected (NotDetected); Giardia lamblia PCR Not Detected (NotDetected); Norovirus GI/GII PCR Not Detected (NotDetected); Plesiomonas shigelloides PCR Not Detected (NotDetected); Rotavirus A PCR Not Detected (NotDetected); Salmonella PCR Not Detected (NotDetected); Sapovirus PCR Not Detected (NotDetected); Shiga-like Toxin E.coli (STEC) Not Detected (NotDetected); Shigella/Enteroinvasive E.coli Not Detected (NotDetected); Vibrio cholerae PCR Not Detected (NotDetected); Vibrio species PCR Not Detected (NotDetected); Yersinia enterocolitica PCR Not Detected (NotDetected)
--- NOTE | 2022-02-06 12:29 | Hospitalist Progress Note ---
Date of Service February 06, 2022 Assessment & Plan (1) Left lower lobe pneumonia: Plan: 89-year-old white male recently hospitalized for an elective left TKA (01/17) now presenting with at the very least LLL PNA but clinically bibasilar pneumonia, leukocytosis, and hypoxemia with minimal exertion - Given recent hospitalization, on Zosyn (for hospital-acquired coverage) along with azithromycin (for atypical coverage). MRSA nasal swab negative. --Levaquin would provide adequate hospital-acquired and atypical coverage; however, being avoided given recent orthopedic procedure - Utilize supplemental oxygen as needed but thus far, none needed. - Patient is showing favorable response. He has remained afebrile. His white blood cell count is downtrending. - Continue nebulized treatments, mucolytic agents, and antitussive agents. - Although his Covid was negative, am suspicious given the associated diarrhea and conjunctivitis. Will obtain PCR test along with a biofire panel to rule out other viral illnesses - Blood cultures obtained: NGTD - Sputum culture with pinpoint growth. Reintubating - Consult PT/OT - Plan for two-step pulse oximetry in the a.m. with likely discharge tomorrow (2) Diarrhea: Plan: - exact etiology unclear - did have recent elective Left TKA- was on pain medication and a bowel regimen-- stool softeners likely contributing - could be viral in nature - KUB nonacute. No obstruction - stool studies ordered-- pending - now on Metamucil and probiotic - stools are formed/diarrhea resolved (3) Conjunctivitis: Plan: - covid PCR negative - could be viral - receiving tobramycin/dex with clinical improvement noted (4) Hypomagnesemia: Plan: - replaced with IV rider - continue oral supplementation x 1 week (5) S/P total knee arthroplasty: Plan: - done 01/[address] Wick - short stay at [facility] following, just discharged from there 01/28 - uneventful perioperative course (6) Diabetes: Plan: - usually on Lantus 40U in am/25u in PM-- was cautiously given 30U BID but with BS in the 200's, will resume 40U/25U - Carb consistent diet - monitor BS and correct via SS/correction dosing - hold Metformin while in house (7) HTN (hypertension): Plan: - lisinopril on hold. Pt reports ongoing hypotension since recent procedure and PCP recently told him to hold this medications - suspect mild dehydration given poor oral intake contributing to low BP's - BP currently 111/67 without lisinopril on board Plan: lovenox for DVT prophylaxis antipyretics and antiemetics as needed Code Status: full consult PT/OT 2 step in am plan for likely D/C tomorrow daughter updated plan of care to D/W Dr. Rose. Admission and Anticipated Discharge Date Admission Date: February 05, 2022 Subjective Patient seen on rounds today. Overall, vocalizes improvement compared to yesterday. Still feeling fatigued but is not feeling short of breath with limited exertion such as eating/sitting up in bed/toileting. In addition, repor ts significant improvement in the irritation of his eyes. No longer having diarrhea. Had a semiformed BM this morning. He vocalizes no significant complaints or concerns. Review of Systems Review of Systems: All systems reviewed and are unremarkable except as noted in HPI and below Reports fatigue . Still with persistent cough but cough improving.denies fevers, chills, headache, nasal congestion, sore throat, chest pain, shortness of breath, palpitations, orthopnea, PND, abdominal pain, nausea, vomiting, diarrhea, constipation, dysuria, hematuria, frequency, back pain, joint pain or swelling, easy bruising or bleeding, skin lesions or rashes. Physical Exam Physical Exam: General: Resting comfortably in his hospital bed. Appears mildly ill but not toxic. NAD. HEENT: Bilateral conjunctiva is no longer erythematous. Significant improvement in the exudates. Neck: No JVD. Negative hepatojugular reflex. Anterior cervical chain lymphadenopathy noted Cardiac: RRR with 1/6 JULIO Lungs: Speaking full sentences on ambient air. Normal respiratory effort. Significantly improved air exchange throughout. Still with scattered rhonchi throughout that clears with coughing but no obvious rales in the bases today. Negative egophony. Abdomen: Normoactive X4. Soft and nontender in all quadrants. Extremities: No peripheral clubbing cyanosis or edema Neuro: A&O X4. Cranial nerves II through XII are grossly intact. No focal neuro deficits Skin: No obvious skin lesions or rashes Psych: Appropriate affect. Pleasant and cooperative Results & Data Results & Data ([facility]) Vital Signs (Past 12 Hours) Vital Signs Temp Pulse Pulse Resp BP Pulse Ox 02/06/22 11:36 36.4 C L 83 18 112/65 94 02/06/22 10:56 83 18 94 02/06/22 08:00 36.7 C 82 89 18 101/58 L 93 02/06/22 07:05 86 18 91 02/06/22 02:40 37.2 C 91 H 18 119/64 95 Laboratory Results 02/06/22 07:16 02/06/22 07:16 Gram Stain Final 02/06/22-0705 Gram Stain Result Many Polys , Rare Epithelial Cells Rare Gram Positive Cocci Sputum Culture Preliminary 02/06/22-0832 Pin-point growth present, reincubating. PG Care Time/CCT Total # of Minutes Spent Total Time Spent with Patient: Total time spent is greater than 50% in coordination of care (as documented) at patient's floor/unit and/or counseling patient: Coding Level of Care Code 49499 Subseq Hosp Care Lvl 2 Diagnoses Left lower lobe pneumonia J18.9 Pneumonia type: due to unspecified organism Diarrhea R19.7 Conjunctivitis H10.9 Hypomagnesemia E83.42 S/P total knee arthroplasty Z96.659 Diabetes E11.9 HTN (hypertension) I10 (1) Left lower lobe pneumonia Pneumonia type: due to unspecified organism Qualified Code(s): J18.9 - Pneumonia, unspecified organism
[2022-02-06] MEDS: AZITHROMYCIN 500 MG in DEXTROSE 5% 250 ML IV SCH (12:31)
[2022-02-06] MEDS: ACETAMINOPHEN 325 MG TAB PO PRN (15:17)
[2022-02-06] MEDS ORDERED: ALBUT/IPRATROP 3MG/0.5MG NEB 3 ML VIAL NEB PRN (15:40)
[2022-02-06] MEDS ORDERED: LANTUS PER UNIT CHARGE SQ SCH (16:00)
[2022-02-06] MEDS: LATANOPROST 0.005% OP SOLN 2.5 ML BTL OPB SCH (20:21)
[2022-02-06] MEDS: SIMVASTATIN 40 MG TAB PO SCH (20:22)
[2022-02-06] MEDS ORDERED: INSULIN GLARGINE SOLOSTAR 100 UNITS/ML 3 ML PEN SC SCH (21:00)
[2022-02-07] MEDS: PIPERACILLIN/TAZOBACTAM 3.375 GM in DEXTROSE 5% 100 ML IV SCH (05:22)
[2022-02-07] MEDS: TOBRAMYCIN/DEXAMETHASONE OPH SUSP 2.5 ML BTL OP SCH ×2 (05:24→13:58)
[2022-02-07] MEDS: GABAPENTIN 300 MG CAP PO SCH (05:24)
[2022-02-07 07:16] LABS: Basophils # (auto) 0.04 K/uL (0-0.2); Basophils % (auto) 0.4 %; Eosinophils % (auto) 2.1 %; Hematocrit (blood only) 34.8 % (42-52); Hemoglobin 11.5 g/dL (14.0-18.0); Immature Granulocytes # (auto) 0.04 K/uL (0.00-0.02); Immature Granulocytes % (auto) 0.4 %; Lymphocytes # (auto) 2.44 K/uL (1.2-3.4); Lymphocytes % (auto) 25.5 %; Mean Corpuscular Hemoglobin 29.4 pg (25-34); Mean Platelet Volume 9.6 fL (7.4-10.4); Monocytes # (auto) 0.67 K/uL (0.11-0.59); Neutrophils # (auto) 6.16 K/uL (1.4-6.5); Neutrophils % (auto) 64.6 %; Platelet Count 339 K/uL (130-400); RDW Coefficient of Variation 13.9 % (11.5-14.5); RDW Standard Deviation 45.6 fL (36.4-46.3); Red Blood Count 3.91 M/uL (4.7-6.1); White Blood Count 9.55 K/uL (4.8-10.8)
[2022-02-07 07:29] LABS: BUN Creatinine Ratio 17.9 (10-20); Calcium 8.6 mg/dl (8.5-10.1); Creatinine Clr Calc Pharmacy 53.1 ml/min; Est GFR (African American) 71.8 ml/min; Est GFR (Non-African American) 61.9 ml/min; Magnesium 1.7 mg/dl (1.7-2.4); Potassium 4.2 mmol/L (3.5-5.1)
[2022-02-07] MEDS: DORZOLAMIDE/TIMOLOL 22.3/6.8MG/ML 10 ML BTL OPB SCH (08:41)
[2022-02-07] MEDS: ENOXAPARIN INJ 40 MG/0.4 ML SYR SQ SCH (08:41)
[2022-02-07] MEDS: CYANOCOBALAMIN (B-12) 500 MCG TABLET PO SCH (08:41)
[2022-02-07] MEDS: PSYLLIUM 58.6% POWDER PACKET PO SCH (08:42)
[2022-02-07] MEDS: INSULIN ASPART PER UNIT SC SCH ×2 (08:42→12:29)
[2022-02-07] MEDS: ADVANCED PROBIOTIC 1250 MG CAPSULE PO SCH (08:42)
[2022-02-07] MEDS: guaiFENesin 600 MG TABCR PO SCH (08:42)
[2022-02-07] MEDS ORDERED: INSULIN GLARGINE SOLOSTAR 100 UNITS/ML 3 ML PEN SC SCH (09:00)
[2022-02-07] MEDS ORDERED: MAGNESIUM OXIDE 400 MG TAB PO SCH (09:00)
[2022-02-07] MEDS ORDERED: AZITHROMYCIN 250 MG TAB PO ONE (11:30)
--- NOTE | 2022-02-07 14:42 | Discharge Summary ---
Date of Service February 07, 2022 Admission HPI Per Admitting Provider Mr. Singh is an 89-year-old white male with an underlying past medical history of IDDM, HTN, HLD, PAD, bladder CA and OA. He presented to the hospital complaining of cough, shortness of breath, and diarrhea X 4 days. Recently underwent an elective left total knee arthroplasty on 01/17. Had a 3-day hospital stay and was subsequently discharged to [facility]. Has been they are doing well and discharged 1 week ago. Since being home, he has been feeling excessively fatigued. His appetite has been poor. He has had diarrhea without abdominal pain, nausea or vomiting. 4 days ago, he developed sinus congestion, chills, and worsening fatigue prompting him to see his PCP. Was thought to have a viral syndrome and supportive care was given. Throughout the past 3 days, he has been having progressive symptoms now with a productive coughgreen/brown sputum. He is getting short of breath with limited exertion which is what prompted him to seek medical attention today. In the emergency department, he was afebrile and hemodynamically stable. Pulse ox is 93% on room air but he does desaturate into the 70s with limited exertion such as leaning forward in the bed. His white blood cell count is elevated at 13.64 with a left shift. He appears to have radiographic evidence of a LLL infiltrate. Covid is negative. Given Zosyn IV and IVF. He will be hospitalized for further evaluation and care. Principal Diagnosis 1. Pneumonia 2. Hypoxemia- resolved 3. Diarrhea Discharge Exam General: Sitting comfortably in his hospital bed. He does not appear ill or toxic. Significant improvement over the course of the past 48 hours HEENT: No longer with conjunctival erythema or exudates Neck: No JVD. Negative hepatojugular reflex. No longer with lymphadenopathy Cardiac: RRR with 1/6 JULIO Lungs: Speaking full sentences on ambient air. Normal respiratory effort. Significantly improved air exchange throughout. Still with scattered rhonchi throughout that clears with coughing but no obvious rales in the bases today. Negative egophony. Abdomen: Normoactive X4. Soft and nontender in all quadrants. Extremities: No peripheral clubbing cyanosis or edema Neuro: A&O X4. Cranial nerves II through XII are grossly intact. No focal neuro deficits Skin: No obvious skin lesions or rashes Psych: Appropriate affect. Pleasant and cooperative Discharge Data Allergies Allergy/AdvReac Type Severity Reaction Status Date / Time No Known Allergies Allergy Verified 02/05/22 08:15 Consultations 02/05/22 09:09 ED Decision to Admit Stat Procedures Performed CXR done 02/05: IMPRESSION: Increased markings at the left lung base could represent atelectasis or pneumonia. KUB: IMPRESSION: 1. There is mild gaseous distention of the small bowel and colon with no radiographic evidence of high-grade obstruction. Correlate clinically for evidence of ileus. 2. Bladder distention is suggested in the pelvis. (post void bladder scan <200) Hospital Course (1) Left lower lobe pneumonia: 89-year-old white male recently hospitalized for an elective left TKA (01/17) now presenting with at the very least LLL PNA but clinically bibasilar pneumonia, leukocytosis, and hypoxemia with minimal exertion - Has not required supplemental oxygen but on arrival, but noted to desaturate with limited exertion (such as leaning foward) into the 70's on arrival - WBC slightly elevated upfront (13.64). Has since normalized. Afebrile, hemodynamically stable - covid negative. Biofire negative - Given recent hospitalization empirically started on Zosyn (for hospital- acquired coverage) along with azithromycin (for atypical coverage). MRSA nasal swab negative. --Levaquin would provide adequate hospital-acquired and atypical coverage; however, being avoided given recent orthopedic procedure --transition to Augmentin/Azithromycin to complete full course (7 days total for augmentin, 5 days for azithromycin) - Patient is showing favorable response. He has remained afebrile. His white blood cell count has since normalized - treated with nebulized treatments - Blood cultures obtained: negative - Sputum culture --normal rajesh - PT/OT and patient donig well, independent. Therapy recommending d/c to home with home health services - Two-step pulse oximetry done showing no evidence of desaturation at rest or with ambulation (2) Diarrhea: - exact etiology unclear - did have recent elective Left TKA- was on pain medication and a bowel regimen-- stool softeners likely contributing - could be viral in nature - KUB nonacute. No obstruction - stool studies ordered-- negative - now on Metamucil and probiotic - stools are formed/diarrhea resolved - May potentially worsen with Augmentin. Would continue probiotic and Metamucil while on this antibiotic. In addition, advise yogurt with live cultures and cheese (3) Conjunctivitis: - covid PCR negative - could be viral - received tobramycin/dex while in house with clinical improvement noted. Resume erythromycin ointment upon discharge X 3-5 more days (4) Hypomagnesemia: - replaced with IV rider - continue oral supplementation x 1 week (5) S/P total knee arthroplasty: - done 01/[address] Wick - short stay at [facility] following, just discharged from there 01/28 - uneventful perioperative course - follow up with ORtho next week as scheduled (6) Diabetes: - Continued on Lantus while in house - Carb consistent diet - monitor BS and correct via SS/correction dosing - hold Metformin while in house but resume upon D/C (7) HTN (hypertension): - lisinopril on hold. Pt reports ongoing hypotension since recent procedure and PCP recently told him to hold this medications - suspect mild dehydration given poor oral intake contributing to low BP's - BP initially 111/67 without lisinopril on board but uptrending (143/71). Okay to resume Lisinopril tomorrow complete full course of antibiotic therapy (azithromycin/Augmentin) Continue probiotic/Metamucil while on antibiotics Recommend follow-up chest x-ray in 2 to 4 weeksat discretion of PCP Recommend follow-up magnesium levelat discretion of PCP daughter updated plan of care to D/W and patient seen by Dr. Rose. Total Time Total Time Spent Total Time Spent (In Minutes): 45 min including time spent with patient, preparation of documentation, coordination of care Discharge Plan Discharge Items Patient Disposition: Home - Home Health Services Reason For Visit: PNEUMONIA Discharge Diagnosis: 1. Pneumonia 2. Hypoxemia- "low oxygen level" 3. Diarrhea- Activity: Resume your previous activity Activity Comment: as tolerated Non-emergency contact: Primary Care Provider and Specialist Call non-emergency contact if: you have any medication questions, your symptoms worsen and you have a fever Follow-up/Referrals: Arden Wick MD [Surgeon] - Jr Curry DO [Primary Care Provider] - 02/14/22 11:30 am Diet: Carb Consistent or DM2 Addtl Attending Provider Instructions: you presented to the hospital with a cough, shortness of breath , diarrhea, and overall just not feeling well your work-up showed evidence of a left sided pneumonia (although clinically, I believe it was in the Right and Left side) Your covid (and repeat covid test was negative). In addition, you had a biofire panel checking for other viral illnesses and these were all negative You have responded favorably to antibiotic and should continue these 1. Augmentin- 1 dose due tonight and then twice a day until complete. 2. Azithromycin daily x 2 more doses- next dose due tomorrow You were having loose stools (which could have been from a the bowel regimen you were started on after your knee replacement to combat the constipation that occurs with pain medication). Your stool has been tested and is all negative.You have been started on a probiotic and Metamucil to help with the loose stools (and are now having formed stools) --the antibiotics on board can cause loose stools; thus, would recommend continuation of the Metamucil and Probiotic while on antibiotics. --Also, can eat yogurt with live cultures and cheese The eye drops that were prescribed prior to hospitalization, continue to use those for the next 3-5 days Your Lisinopril was held (by your Family doctor) prior to this hospitalization and remained held while in the house. I suspect that your blood pressure was marginally low from being dehydrated (on account of your diarrhea and poor appetite from Pneumonia). Your blood pressure today is 131/70 and you can resume your Lisinopril tomorrow Your magnesium level was low upon arrival (and your were given IV and then oral magnesium supplementation). Continue this for 1 week and your PCP can determine if this is needed help desk support. Likely low because you were sick and recently had surgery. Follow up with your PCP: 7-10 days. Would advise that you have a repeat CXR in 4-6 weeks (at discretion of your PCP) Return to the ED for new or worsening symptoms Pending Studies at Discharge: No Stand-Alone Forms: My [facility] Medications and DC Order Prescriptions: New magnesium oxide 400 mg (241.3 mg magnesium) Tablet 400 mg PO QAM Qty: 7 RF: 0 Metamucil (with sugar) 3.4 gram Powder In Packet 1 ea PO QAM Qty: 30 RF: 0 Advanced Probiotic 625 mg (10 billion cell) Capsule 2 cap PO DAILY Qty: 30 RF: 0 azithromycin 250 mg tablet 250 mg PO DAILY Qty: 2 RF: 0 amoxicillin-pot clavulanate 875-125 mg tablet 1 tab PO BID Qty: 11 RF: 0 Continued ondansetron 4 mg tablet,disintegrating 4 mg PO Q8H PRN (Reason: nausea and vomiting) Qty: 10 RF: 0 cyanocobalamin (vitamin B-12) 1,000 mcg tablet 1,000 mcg PO QAM RF: 0 cholecalciferol (vitamin D3) 25 mcg (1,000 unit) tablet 1,000 units PO QAM RF: 0 lisinopril 10 mg tablet 10 mg PO QAM RF: 0 tramadol 50 mg tablet 50 mg PO Q4H PRN (Reason: pain) RF: 0 erythromycin 5 mg/gram (0.5 %) ointment 1 applic ophthalmic (eye) QID Qty: 3.5 RF: 1 dorzolamide-timolol 22.3-6.8 mg/mL drops 1 drp OPB BID RF: 0 latanoprost 0.005 % drops 1 drp OPB HS RF: 0 metformin 1,000 mg tablet 1,000 mg PO BIDM RF: 0 gabapentin 300 mg Capsule 300 mg PO Q8H RF: 0 simvastatin 40 mg tablet 40 mg PO HS RF: 0 Lantus U-100 Insulin 100 unit/mL solution See Rx Instructions SUBCUT UD RF: 0 acetaminophen [Tylenol Extra Strength] 500 mg Tablet 1,000 mg PO Q8 PRN (Reason: fever or pain) Qty: 30 RF: 0 Discharge Orders: Discharge Order (Routine); Ordered 02/07/22 Ordered By: Brionna Schrader Admission Data Admit Date/Time: 02/05/22 10:22 Attending Provider: Micah Rose Admit Provider: Micah Rose Primary Care Provider: Jr Curry Other Providers: Micah Rose ; [facility] Other Interventions: Discharge Summary Assessment (RN) Last Done: 02/07/22 13:19 Coding Level of Care Code D/C DAY MANAGEMENT >30 MINS Diagnoses Left lower lobe pneumonia J18.9 Pneumonia type: due to unspecified organism Diarrhea R19.7 Conjunctivitis H10.9 Hypomagnesemia E83.42 S/P total knee arthroplasty Z96.659 Diabetes E11.9 HTN (hypertension) I10
== END 2022-02-07 14:40 | disposition home health service (06) | DRG 205 ==
LOC: ED 06:56 → 2N 10:22